=== PATIENT | male | born 1985 | race Caucasian/White ===

== ENCOUNTER 2025-08-23 06:57 | Emergency (ER) | payer MEDICAID, SELFPAY ==
[2025-08-23 07:02] VITALS: BP 110/69; PULSE 54; PULSE 59; RESP 16; TEMP 36.4; O2SAT 100; O2SAT 99; BMI 24.0
--- NOTE | 2025-08-23 07:09 | EX.ED.GENINJ ---
HPI History of Present Illness Chief Complaint: Suicidal PFSH PFSH Allergy/AdvReac Type Severity Reaction Status Date / Time Penicillins Allergy Severe Anaphylaxis Verified 08/23/25 07:06 bupropion (From Wellbutrin) Allergy Mild Other Verified 08/23/25 07:06 divalproex sodium (From Allergy Mild Other Verified 08/23/25 07:06 Depakote) risperidone Allergy Mild Other Verified 08/23/25 07:06 Family History no significant family his Surgical History (Updated 08/23/25 @ 07:03 by Alton Franco) Hx of heart surgery Social History Smoking Status: Current some day smoker tobacco type: cigarettes EXAM Physical Exam Const Vital Signs: 08/23/25 07:02 08/23/25 07:02 08/23/25 07:02 Temperature 97.6 F L Temperature Source Oral Pulse Rate 54 L 59 L Respiratory Rate 16 16 Respiratory Effort Normal Respiratory Pattern Normal Blood Pressure 110/69 110/69 Blood Pressure Mean 82 82 Pulse Ox 99 100 Oxygen Delivery Method Room Air Room Air MDM MDM MDM Narrative Medical decision making narrative: HISTORY OF PRESENT ILLNESS: Chief complaint: Suicidal ideation, foot pain 40-year-old male presents concern for suicide ideation as well as concern for pain in his feet. He states he thinks his feet hurt because he has been out. He further states he has suicidal thoughts and his plan be to go outside in the cold and walk into traffic. He denies any trauma to his feet. He notes using ice last 2 days. States history of bipolar disorder is currently untreated. Denies any physical complaints of chest pain, headache, neck pain, back pain, abdominal pain, vomiting or fever. REVIEW OF SYSTEMS: Pertinent positives: Suicidal ideation, foot pain Pertinent negatives: As per HPI PHYSICAL EXAM: Nursing triage notes reviewed, Vital signs reviewed Constitutional: please see mdm HENT: MMM Eyes: Pupils equal round and reactive to light, Extraocular muscles intact Neck: No stridor, no JVD, full neck ROM Lungs: Clear to auscultation, No wheezing or rales. No increased work of breathing, no conversational dyspnea, no accessory muscle use, no nasal flaring. No respiratory distress noted Heart: Regular rate and rhythm, No murmurs, No rubs and No gallops, 2+ distal pulses (radial, femoral, posterior tibial) in all extremities Abdomen: Soft, there is no tenderness, rigidity, rebound or guarding, no obvious peritoneal signs, no palpable pulsatile abdominal masses, no auscultated abdominal bruit : No CVAT Extremities: No edema Neuro: Intact sensation L1-S1 dermatomal distributions. Intact 5/5 strength in hip flexion (T12-L3). Knee extension (L2-L4). Ankle dorsiflexion (L4-L5). Ankle plantar flexion (S1). Great toe extension (L5). 2+ patellar and Achilles DTRs. Skin: No rash or lesions noted Psych: Goal-directed thought process, normal affect, does not appear to be responding to internal stimuli. MEDICAL DECISION MAKING: Chief Complaint: please see HPI External records reviewed: no records Factors affecting care: none Social determinants of health: Homeless History obtained from others: none Consults: behavioral social work MDM Narrative: Patient was hemodynamically stable, afebrile and nontoxic-appearing. Initial exam unremarkable. Initiated mental health/behavioral health clearance process. Consulted case management ALL IMAGES (IF OBTAINED) HAVE BEEN PERSONALLY REVIEWED AND INTERPRETED BY MYSELF. [] The patient and/or family, caregivers express understanding. The patient and/or family, caregivers agrees with the plan. Shared decision making: I will have a discussion with the patient and or visitors regarding risk/benefits of further testing or admission. They will be made aware of of the risk/benefits inherent in this decision they will be given the opportunity to voice understanding. Total critical care time today provided was at least 0 [] minutes. This excludes separately billable procedures. Critical care time (if documented) is secondary to the patient having high probability of clinically significant/life threatening deterioration in the patient's condition which required my urgent intervention. Impression: 1. Suicidal Ideation 2. Foot pain Dispo: [] This note was generated with [employer] dictation software. It may contain incorrect words, spelling, and punctuation that were not noted in review of the chart prior to signing. Discharge Plan Triage Chief Complaint: Suicidal Other Complaint: Other, Pain/Inj ED Provider: Zane Chaves Dx/Rx/DC Orders Primary Care Provider: Care Physician,No Primary Referrals: Care Physician,No Primary [Primary Care Provider, Medical] Print Language: Armenian
--- OUTSIDE RECORDS SUMMARY | 2025-08-23 07:36 | XMS RPT_ITS | CCD ---
Author Organization [facility] Care Team Providers Care Weight Loss Counselor Name Role Phone Unavailable Primary Care Provider UnavailBANDAR Marr Admitting Unavailable MITCH NUÑEZ Attending Unavailable [facility] Primary Care Physician Elke Friend Unavailable Unavailable Unavailable Primary Care Provider UnavailCALISTA Naidu Attending Unavailable JOSELINE HALL Consulting Unavailable KALEY PIERRE M.D. Consulting Unavailab NICOLASA Galeano Consulting Unavailable PHYSICIAN, NONE Primary Care Physician Unavailab Oliver Leyva Attending Unavailable Zach AGUILLON, Samira Mccrary Primary Care Provider SAMIRA SERRANO Primary Care Unavailable RACHAEL HOUSER Attending Unavailable PALMA AGUILLON, CECIL Hall Attending [facility] Unavail able PHYSICIAN, NONE Primary Care Unavailable PALMA AGUILLON, DR DAVIS Attending Unavailmilly e PHYSICIAN, NONE Primary Care Unavailable GALLO TORRE MD Attending Unavailable PHYSICIAN, NONE Primary Care Unavailable ADAM GUALLPA DO Attending Unavailable Pcp RESEARCH PHYSIOLOGIST, No Primary Care Provider UnavailASAF Spaulding Primary Care Unavailable ELBA FLOOD DO Attending Unavailable PHYSICIAN, NONE Primary Care Unavailable Allergies Allergy Classification Reported Allergen(s) Allergy Type Date of Onset Reaction(s) Facility (11 sources) Penicillins; Translations: [PENICILLINS] Propensity to adverse reactions to drug 0 Unknown [facility] (13 sources) Valproate; Translations: [DIVALPROEX] Drug Allergy 0 Unknown [facility] (8 sources) Penicillins Propensity to adverse reactions to drug 0 Unknown [facility] (6 sources) Valproate; Translations: [divalproex sodium] Drug Allergy muscle stiffness [facility] (6 sources) dimethicone / Zinc Oxide; Translations: [emollients, topical] Drug Allergy [facility] (2 sources) buPROPion; Translations: [bupropion] Drug Allergy blind [facility] (2 sources) Latex Allergy to substance rash [facility] Medications Current Medications Medication Drug Class(es) Dates Sig (Normalized) Sig (Original) ARIPiprazole 10 mg oral tablet (7 sources) Atypical Antipsychotic Start: 12-05-2023 ARIPiprazole 10 mg oral tablet Dose : 10 mg = 1 tab(s), Oral Start Date: 12/05/23 Status: Ordered Start: 06-05-2020 take 1 tablet by adithya th once daily ARIPiprazole (ABILIFY) 10 mg tablet Take 1 tablet by mouth once daily. 30 tablet 0 06/05/2020 Active Comment on above: Take 1 tablet by adithya th once daily. atomoxetine 40 mg oral capsule (5 sources) Norepinephrine Reuptake Inhibitor Start: 10-05-19 take 1 capsule by mouth twice daily atomoxetine (STRATTERA) 40 mg capsule Take 40 mg by mouth twice daily. 0 10/05/2022 Active Comment on above: Take 40 mg by mouth twice daily. busPIRone hydrochloride 10 mg oral tablet (6 sources) Start: 12-05-19 busPIRone 10 mg oral tablet Dose : 10 mg = 1 tab(s), Oral, BID Start Date: 12/05/23 Status: Ordered Start: 10-05-2022 take 1 tablet by adithya th twice daily busPIRone (BUSPAR) 5 mg tablet Take 5 mg by mouth twice daily. 0 10/05/2022 Active Comment on above: Take 5 mg by mouth t wice daily. cephalexin 500 mg oral tablet (1 source) Cephalosporin Antibacterial Start: 3 End: 3 cephalexin 500 mg oral tablet Dose : 500 mg = 1 tab(s), Oral, BID, X 7 day(s), # 14 tab(s), 0 Refill(s), 05/18/23 7:01:00 AM EDT, 70.5 Start Date: 05/11/23 Stop Date: 05/18/23 Status: Ordered doxycycline hyclate 100 mg oral capsule (2 sources) Tetracycline-class Drug Start: 3 End: 3 take 1 capsule by mouth twice daily doxycycline hyclate (VIBRAMYCIN) 100 mg capsule Indications: STI (sexually transmitted infection) Take 1 capsule by mouth twice daily for 14 days. 28 capsule 0 11/17/2022 12/01/2022 Active Comment on above: Take 1 capsule by [facility] twice daily for 14 days. 24 hr guanFACINE 1 mg extended release oral tablet (1 source) Central alpha-2 Adrenergic Agonist Start: 4 guanFACINE 1 mg oral tablet, extended release Dose : 1 mg = 1 tab(s), Oral, qAM Start Date: 12/05/23 Status: Ordered hydrOXYzine pamoate 50 mg oral capsule (1 source) Antihistamine Start: 4 hydrOXYzine pamoate 50 mg oral capsule Dose : 50 mg = 1 cap(s), Oral, BID Start Date: 12/05/23 Status: Ordered lamoTRIgine 25 mg oral tablet (5 sources) Mood Stabilizer, Anti-epileptic Agent Start: 3 take 3 tablets by mouth once daily at bedtime lamoTRIgine (LAMICTAL) 25 mg tablet Take 75 mg by mouth daily at bedtime. 0 10/05/2022 Active Comment on above: Take 75 mg by mouth daily at bedtime. Completed/Discontinued Medications Medication Drug Class(es) Dates Sig (Normalized) Sig (Original) cefTRIAXone 250 mg injection (2 sources) Cephalosporin Antibacterial Start: 11-17-2022 End: 11-17-2022 cefTRIAXone 500 mg intramuscular injection (ROCEPHIN) Start: 11-17-2022 End: 11-17-2022 cefTRIAXone 500 mg intramusc ular injection (ROCEPHIN) valACYclovir 1000 mg oral tablet (1 source) Herpesvirus Nucleoside Analog DNA Polymerase Inhibitor, Herpes Simplex Virus Nucleoside Analog DNA Polymerase Inhibitor, Herpes Zoster Virus Nucleoside Analog DNA Polymerase Inhibitor Start: 05-11-2023 End: 05-21-2023 Valtrex 1 g oral tablet Dose : 1 gram(s) = 1 tab(s), Oral, BID, X 10 day(s), # 20 tab(s), 0 Refill(s), 05/21/23 7:01:00 AM EDT, 70.5 Start Date: 05/11/23 Stop Date: 05/21/23 Status: Ordered 24 hr venlafaxine 150 mg extended release oral capsule (6 sources) Serotonin and Norepinephrine Reuptake Inhibitor Start: 06-05-2020 take 1 capsule by mouth once daily venlafaxine ER (EFFEXOR XR) 150 mg 24 hr capsule Take 1 capsule by mouth once daily. 30 capsule 0 06/05/2020 Active Comment on above: Take 1 capsule by [facility] once daily. Problems Active Problems Problem Classification Problem Date Documented Date Episodic/Chronic Mood disorders (15 sources) Bipolar disorder; Translations: [Bipolar disorder, unspecified] Onset: 05-31-2020 06-04-2020 Chronic Schizophrenia and other psychotic disorders (1 source) Delusional disorders; Translations: [Paranoia (HCC)] Onset: 08-29-2023 Chronic Screening and history of mental health and substance abuse codes (1 source) Personal history of other mental and behavioral disorders; Translations: [Personal history of other mental and behavioral disorders] Onset: 09-22-2024 Episodic Sexually transmitted infections (not HIV or hepatitis) (1 source) Sexually transmitted infectious disease; Translations: [Unspecified sexually transmitted disease] Episodic Substance-related disorders (1 source) Other stimulant dependence, uncomplicated; Translations: [Other stimulant dependence, uncomplicated ([facility]-HCC)] Onset: 09-22-2024 Chronic Suicide and intentional self-inflicted injury (2 sources) Suicidal thoughts; Translations: [Suicidal ideations] Onset: 11-03-2023 Episodic Unclassified (2 sources) Suicidal; Translations: [Suicidal] Onset: 09-22-2024 Past or Other Problems Problem Classification Problem Date Documented Da te Episodic/Chronic Unclassified (1 source) FEVER/CHILLS/VOM ITTING Onset: 09-03-2022 Results Test Name Value Interpretation Reference Range Facility .Auto Diffon 01-17-2025 Basophil, Absolute 0.1 10 3/mcL Normal 0.0-0.3 [facility] Comment on above: Performed By: #### M DW, ANEU, CMP, ADIFF, DRUGS, CK, GFR, CBC #### [address] [address] Basophils/100 WBC (Bld) 1.5 % Normal 0.0-2.5 [facility] Comment on above: Performed By: #### M DW, ANEU, CMP, ADIFF, DRUGS, CK, GFR, CBC #### [address] [address] Eosinophil, Absolute 0.2 10 3/mcL Normal 0.0-0.7 [facility] Comment on above: Performed By: #### M DW, ANEU, CMP, ADIFF, DRUGS, CK, GFR, CBC #### [address] [address] Eosinophils/100 WBC (Bld) 3.2 % Normal 0.0-6.0 [facility] Comment on above: Performed By: #### M DW, ANEU, CMP, ADIFF, DRUGS, CK, GFR, CBC #### [address] [address] Lymphocyte, Absolute 1.6 10 3/mcL Normal 0.9-4.3 [facility] Comment on above: Performed By: #### M DW, ANEU, CMP, ADIFF, DRUGS, CK, GFR, CBC #### [address] [address] Lymphocytes/100 WBC (Bld) 33.5 % Normal 20.0-40.0 [facility] Comment on above: Performed By: #### M DW, ANEU, CMP, ADIFF, DRUGS, CK, GFR, CBC #### [address] [address] Monocyte, Absolute 0.4 10 3/mcL Normal 0.1-1.4 [facility] Comment on above: Performed By: #### M DW, ANEU, CMP, ADIFF, DRUGS, CK, GFR, CBC #### [address] [address] Monocytes/100 WBC (Bld) 9.2 % Normal 2.0-13.0 [facility] Comment on above: Performed By: #### M DW, ANEU, CMP, ADIFF, DRUGS, CK, GFR, CBC #### [address] [address] Neutrophils/100 WBC (Bld) 52.6 % Normal 50.0-75.0 [facility] Comment on above: Performed By: #### M DW, ANEU, CMP, ADIFF, DRUGS, CK, GFR, CBC #### [address] [address] .GFRon 05-10-2025 Estimated Glomerular Filtration Rate 96 ml/min/1.73sqm Normal [facility] Comment on above: Result Comment: Stages of Chronic Kidney Disease (CKD) Stage Description eGFR(ml/min/1.73 sq.m.) CKD 1 Normal kidney function or >=90 normal kindney function with possible kidney damage (ex. Proteinuria) CKD 2 Kidney damage with mild loss 60-89 of kidney function CKD 3a Mild to moderate loss of kidney 45-59 function CKD 3b Moderate to severe loss of 30-44 of kindey function CKD 4 Severe loss of kidney function 15-29 CKD 5 Kidney failure <15 Note: (go live 2024) the eGFR calculation was updated to the 2020 CKD-EPI creatinine equation without a race factor to calculate the eGFR results. Performed By: #### M DW, ANEU, CMP, ADIFF, DRUGS, CK, GFR, CBC #### [place] [address] .MDWon 01-17-2025 Monocyte Distribution Width 16.95 Normal 0.00-20.00 [facility] Comment on above: Result Comment: For ED adult patients suspected of sepsis, MDW<=20.0 does not rule out sepsis or risk of sepsis Performed By: #### M DW, ANEU, CMP, ADIFF, DRUGS, CK, GFR, CBC #### [place] [address] .NEUABSon 01-17-2025 Neutrophil, Absolute 2.6 10 3/mcL Normal 2.3-8.1 [facility] Comment on above: Performed By: #### M DW, ANEU, CMP, ADIFF, DRUGS, CK, GFR, CBC #### [place] [address] CBCon 01-17-2025 Erythrocyte distribution width (RBC) [Ratio] 14.6 % Normal 11.5-15.5 [facility] Comment on above: Performed By: #### M DW, ANEU, CMP, ADIFF, DRUGS, CK, GFR, CBC #### [place] [address] Hematocrit (Bld) [Volume fraction] 40.8 % Normal 40.0-52.0 [facility] Comment on above: Performed By: #### M DW, ANEU, CMP, ADIFF, DRUGS, CK, GFR, CBC #### [place] [address] Hgb 13.5 G/dL Normal 13.0-17.5 [facility] Comment on above: Performed By: #### M DW, ANEU, CMP, ADIFF, DRUGS, CK, GFR, CBC #### [place] [address] MCH (RBC) [Entitic mass] 30.1 pg Normal 27.0-33.0 [facility] Comment on above: Performed By: #### M DW, ANEU, CMP, ADIFF, DRUGS, CK, GFR, CBC #### [place] [address] MCHC 33.0 G/dL Normal 32.0-36.0 [facility] Comment on above: Performed By: #### M DW, ANEU, CMP, ADIFF, DRUGS, CK, GFR, CBC #### [place] [address] MCV (RBC) [Entitic vol] 91.2 fL Normal 81.0-100.0 [facility] Comment on above: Performed By: #### M DW, ANEU, CMP, ADIFF, DRUGS, CK, GFR, CBC #### [place] [address] Platelet 245 10 3/mcL Normal 150-450 [facility] Comment on above: Performed By: #### M DW, ANEU, CMP, ADIFF, DRUGS, CK, GFR, CBC #### [place] [address] Platelet mean volume (Bld) [Entitic vol] 8.4 fL Normal 6.4-10.5 [facility] Comment on above: Performed By: #### M DW, ANEU, CMP, ADIFF, DRUGS, CK, GFR, CBC #### [place] [address] RBC 4.47 10 6/mcL Low 4.50-6.00 [facility] Comment on above: Performed By: #### M DW, ANEU, CMP, ADIFF, DRUGS, CK, GFR, CBC #### [place] [id number] WBC 4.9 10 3/mcL Normal 4.5-10.8 [facility] Comment on above: Performed By: #### M DW, ANEU, CMP, ADIFF, DRUGS, CK, GFR, CBC #### [place] [id number] CKon 01-17-2025 CK [Catalytic activity/Vol] 76 U/L Normal 7-185 [facility] Comment on above: Performed By: #### M DW, ANEU, CMP, ADIFF, DRUGS, CK, GFR, CBC #### [address] 01-17-2025 Albumin Level 3.9 G/dL Normal 3.2-4.8 [facility] Comment on above: Performed By: #### M DW, ANEU, CMP, ADIFF, DRUGS, CK, GFR, CBC #### [place] [address] Albumin/Globulin [Mass ratio] 1.6 {ratio} Normal 0.9-1.6 [facility] Comment on above: Performed By: #### M DW, ANEU, CMP, ADIFF, DRUGS, CK, GFR, CBC #### [place] [id number] ALP [Catalytic activity/Vol] 59 U/L Normal 38-126 [facility] Comment on above: Performed By: #### M DW, ANEU, CMP, ADIFF, DRUGS, CK, GFR, CBC #### [place] [address] ALT [Catalytic activity/Vol] 13 U/L Normal 12-55 [facility] Comment on above: Performed By: #### M DW, ANEU, CMP, ADIFF, DRUGS, CK, GFR, CBC #### [place] [id number] AST [Catalytic activity/Vol] 16 U/L Normal 8-34 [facility] Comment on above: Performed By: #### M DW, ANEU, CMP, ADIFF, DRUGS, CK, GFR, CBC #### [place] [id number] Bili Total 0.30 mg/dL Normal 0.20-1.20 [facility] Comment on above: Result Comment: Use of this assay is not recommended for patients undergoing treatment with eltrombopag due to the potential for falsely elevated results. Performed By: #### M DW, ANEU, CMP, ADIFF, DRUGS, CK, GFR, CBC #### [place] [address] BUN/Creatinine Ratio 7.9 ratio Low 10.0-22.0 [facility] Comment on above: Performed By: #### M DW, ANEU, CMP, ADIFF, DRUGS, CK, GFR, CBC #### [place] [address] Calcium [Mass/Vol] 9.6 mg/dL Normal 8.7-10.4 [facility] Comment on above: Performed By: #### M DW, ANEU, CMP, ADIFF, DRUGS, CK, GFR, CBC #### [place] [id number] Chloride [Moles/Vol] 108 mmol/L Normal 98-110 [facility] Comment on above: Performed By: #### M DW, ANEU, CMP, ADIFF, DRUGS, CK, GFR, CBC #### [place] [id number] CO2 [Moles/Vol] 32 mmol/L Normal 22-32 [facility] Comment on above: Performed By: #### M DW, ANEU, CMP, ADIFF, DRUGS, CK, GFR, CBC #### [place] [address] Creatinine [Mass/Vol] 1.01 mg/dL Normal 0.60-1.40 [facility] Comment on above: Result Comment: Test ing performed on tuQuejaSuma analyzer using enzymatic creatinine methodology. Performed By: #### M DW, ANEU, CMP, ADIFF, DRUGS, CK, GFR, CBC #### [place] [address] Electrolyte Balance 1.0 mEq/L Low 4.0-15.0 [facility] Comment on above: Performed By: #### M DW, ANEU, CMP, ADIFF, DRUGS, CK, GFR, CBC #### [address] [address] Globulin 2.4 G/dL Low 2.5-4.2 [facility] Comment on above: Performed By: #### M DW, ANEU, CMP, ADIFF, DRUGS, CK, GFR, CBC #### [place] [id number] Glucose [Mass/Vol] 99 mg/dL Normal 70-110 [facility] Comment on above: Performed By: #### M DW, ANEU, CMP, ADIFF, DRUGS, CK, GFR, CBC #### [place] [id number] Potassium [Moles/Vol] 4.6 mmol/L Normal 3.5-5.0 [facility] Comment on above: Performed By: #### M DW, ANEU, CMP, ADIFF, DRUGS, CK, GFR, CBC #### [place] [id number] Sodium [Moles/Vol] 141 mmol/L Normal 136-145 [facility] Comment on above: Performed By: #### M DW, ANEU, CMP, ADIFF, DRUGS, CK, GFR, CBC #### [place] [id number] Total Protein 6.3 G/dL Normal 5.7-8.2 [facility] Comment on above: Performed By: #### M DW, ANEU, CMP, ADIFF, DRUGS, CK, GFR, CBC #### [place] [id number] Urea nitrogen [Mass/Vol] 8.0 mg/dL Normal 8.0-22.0 [facility] Comment on above: Performed By: #### M DW, ANEU, CMP, ADIFF, DRUGS, CK, GFR, CBC #### [place] [id number] CVFLURVon 01-17-2025 FLU A PCR Negative Normal Negative [facility] Comment on above: Result Comment: [place] [id number] Performed By: #### C VFLURV #### [place] [address] FLU B PCR Negative Normal Negative [facility] Comment on above: Result Comment: [place] [id number] Performed By: #### C VFLURV #### [facility] [address] [place] [address] RSV PCR Negative Normal Negative [facility] Comment on above: Result Comment: [place] [id number] Performed By: #### C VFLURV #### [place] [address] SARS-CoV-2 (COVID-19) RNA LAN+probe Ql (Unsp spec) Negative Normal Negative [facility] Comment on above: Result Comment: [place] s [id number] Results from the Xpert Xpress SARS-CoV-2/Flu/RSV or Xpert Xpress SARS-CoV-2 only test should be correlated with the clinical history, epidemiological data, and other data available to the clinician evaluating the patient. Performance of the Xpert Xpress SARS-CoV-2/Flu/RSV or Xpert Xpress SARS-CoV-2 only test has only been established in nasopharyngeal swab specimens. Erroneous test results might occur from improper specimen collection; failure to follow the recommended sample collection, handling, and storage procedures; technical error; or sample mix-up.False negative results may occur if virus is present at levels below the analytical limit of detection. Viral nucleic acid may persist in vivo, independent of virus viability. Detection of analyte target(s) does not imply that the corresponding virus(es) are infectious or are the causative agents for clinical symptoms.Recent patient exposure to FluMist or other live attenuated influenza vaccines may cause inaccurate positive results. FDA Approved. Performed By: #### C VFLURV #### [place] [address] DRUGSon 01-17-2025 Acetaminophen [Mass/Vol] ug/mL Low 10.0-20.0 [facility] Comment on above: Performed By: #### M DW, ANEU, CMP, ADIFF, DRUGS, CK, GFR, CBC #### [place] [address] Ethanol Level <10.0 Normal [facility] Comment on above: Performed By: #### M DW, ANEU, CMP, ADIFF, DRUGS, CK, GFR, CBC #### [place] [id number] Salicylate Lvl (ds) <3.0 Low 10.0-25.0 [facility] Comment on above: Performed By: #### M DW, ANEU, CMP, ADIFF, DRUGS, CK, GFR, CBC #### [place] [id number] Serum Drugs screened: See Below [facility] Comment on above: Result Comment: This drug screen is a presumptive screening only. No confirmation will be performed unless requested. Drugs included in the serum drug screen are: Threshold Ethanol 10.0 mg/dL Salicylate 2.0 mg/dl Acetaminophen 2.0 mcg/mL Testing has been performed FOR MEDICAL PURPOSES ONLY. Performed By: #### M DW, ANEU, CMP, ADIFF, DRUGS, CK, GFR, CBC #### [place] [address] DRUGUon 01-17-2025 Cannabinoid (u) Positive Abnormal Negative [facility] Comment on above: Performed By: #### Zamzam SHEIKHU #### [place] [id number] U pH Drug Scrn 7.5 Normal 5.0-8.0 [facility] Comment on above: Performed By: #### Zamzam SHEIKHU #### [place] [id number] Amphetamine (u) Negative Normal Negative [facility] Comment on above: Performed By: #### Zamzam RUGU #### [place] [id number] Barbiturate (u) Negative Normal Negative [facility] Comment on above: Performed By: #### Zamzam RUGU #### [place] [id number] Benzodiazepine (u) Negative Normal Negative [facility] Comment on above: Performed By: #### Zamzam RUGU #### [place] [id number] Cocaine Ql (U) Negative Normal Negative [facility] Comment on above: Performed By: #### D RUGU #### [address] [address] Fentanyl (u) Negative Normal Negative [facility] Comment on above: Result Comment: Test ing has been performed FOR MEDICAL PURPOSES ONLY. Performed By: #### D RUGU #### [address] [address] Methadone Ql (U) Negative Normal Negative [facility] Comment on above: Performed By: #### D RUGU #### [address] [address] Opiate (u) Negative Normal Negative [facility] Comment on above: Performed By: #### D RUGU #### [address] [address] Oxycodone (u) Negative Normal Negative [facility] Comment on above: Result Comment: Test ing has been performed FOR MEDICAL PURPOSES ONLY. Performed By: #### Zamzam RUGU #### [address] [address] PCP (u) Negative Normal [facility]IN Comment on above: Performed By: #### D RUGU #### [place] [id number] Propoxyphene (u) Negative Normal [facility]IN Comment on above: Performed By: #### D RUGU #### [address] [address] Urine Drugs screened: See Below [facility] Comment on above: Result Comment: This drug screen is a presumptive screening only. No confirmation will be performed unless requested. Drugs screened include: Threshold Amphetamines/Methamphetamines 1,000 ng/mL Barbiturates 200 ng/mL Benzodiazepine metabolites 200 ng/mL Cannabinoids (THC metabolites) 50 ng/mL Benzoylecognine (Cocaine metab) 300 ng/mL Opiates 300 ng/mL Phencyclidine (PCP) 25 ng/mL Methadone 300 ng/mL Propoxyphene 300 ng/mL Fentanyl 1.0 ng/mL Oxycodone 100 ng/mL Testing has been performed FOR MEDICAL PURPOSES ONLY. Performed By: #### Zamzam RUGU #### [place] [id number] [place] [address] LABORATORYOrdered By: Garrett Vidal on 01-17-2025 Amphetamines Screen Ql (U) Negative *NA* (01/17/25 12:32 PM) Invalid Interpretation Code Negative AH ADM SS Barbiturates Screen Ql (U) Negative *NA* (01/17/25 12:32 PM) Invalid Interpretation Code Negative AH ADM SS Benzodiazepines Ql (U) Negative *NA* (01/17/25 12:32 PM) Invalid Interpretation Code Negative AH ADM SS Benzoylecgonine Screen Ql (U) Negative *NA* (01/17/25 12:32 PM) Invalid Interpretation Code Negative AH ADM SS fentaNYL Screen Ql (U) Negative 2 *NA* (01/17/25 12:32 PM) Invalid Interpretation Code Negative AH ADM SS Comment on above: Interpretive Data: T esting has been performed FOR MEDICAL PURPOSES ONLY. Methadone Screen Ql (U) Negative *NA* (01/17/25 12:32 PM) Invalid Interpretation Code Negative AH ADM SS Opiates Screen Ql (U) Negative *NA* (01/17/25 12:32 PM) Invalid Interpretation Code Negative AH ADM SS oxyCODONE Ql (U) Negative 3 *NA* (01/17/25 12:32 PM) Invalid Interpretation Code Negative AH ADM SS Comment on above: Interpretive Data: T esting has been performed FOR MEDICAL PURPOSES ONLY. Phencyclidine Ql (U) Negative *NA* (01/17/25 12:32 PM) Invalid Interpretation Code Negative AH ADM SS Propoxyphene Screen Ql (U) Negative *NA* (01/17/25 12:32 PM) Invalid Interpretation Code Negative AH ADM SS Urine Drugs screened: See Below 8 (01/17/25 12:32 PM) Normal AH Chemistry S Comment on above: Interpretive Data: T his drug screen is a presumptive screening only. No confirmation will be performed unless requested. Drugs screened include: Threshold Amphetamines/Methamphetamines 1,000 ng/mL Barbiturates 200 ng/mL Benzodiazepine metabolites 200 ng/mL Cannabinoids (THC metabolites) 50 ng/mL Benzoylecognine (Cocaine metab) 300 ng/mL Opiates 300 ng/mL Phencyclidine (PCP) 25 ng/mL Methadone 300 ng/mL Propoxyphene 300 ng/mL Fentanyl 1.0 ng/mL Oxycodone 100 ng/mL Testing has been performed FOR MEDICAL PURPOSES ONLY. LABORATORYOrdered By: Irasema sanchez on 01-17-2025 Cannabinoids Screen Ql (U) Positive *ABN* (01/17/25 12:32 PM) Invalid Interpretation Code Negative AH ADM SS pH (U) 7.5 [pH] Normal 5.0 - 8.0 Chemistry S Acetaminophen [Mass/Vol] mcg/mL Low 10.0 - 20.0 mcg/mL AH ADM SS Ethanol [Mass/Vol] mg/dL Invalid Interpretation Code AH ADM SS Salicylates [Mass/Vol] mg/dL Low 10.0 - 25.0 mg/dL ADM SS Serum Drugs screened: See Below 7 (01/17/25 9:27 AM) Normal Chemistry S Comment on above: Interpretive Data: T his drug screen is a presumptive screening only. No confirmation will be performed unless requested. Drugs included in the serum drug screen are: Threshold Ethanol 10.0 mg/dL Salicylate 2.0 mg/dl Acetaminophen 2.0 mcg/mL Testing has been performed FOR MEDICAL PURPOSES ONLY. LABORATORYOrdered By: SYSTEM SYSTEM on 01-17-2025 Albumin BCP dye [Mass/Vol] 3.9 G/dL Normal 3.2 - 4.8 G/dL ADM SS Albumin/Globulin [Mass ratio] 1.6 {ratio} Normal 0.9 - 1.6 ratio ADM SS ALP [Catalytic activity/Vol] 59 U/L Normal 38 - 126 U/L ADM SS ALT No additional P-5'-P [Catalytic activity/Vol] 13 U/L Normal 12 - 55 U/L AH ADM SS AST [Catalytic activity/Vol] 16 U/L Normal 8 - 34 U/L ADM SS Basophils (Bld) [#/Vol] 0.1 103/mcL Normal 0.0 - 0.3 10^3/mcL Workflow SS Basophils/100 WBC (Bld) 1.5 % Normal 0.0 - 2.5 % Workflow SS Bilirubin [Mass/Vol] 0.30 mg/dL Normal 0.20 - 1.20 mg/dL ADM SS Comment on above: Interpretive Data: U se of this assay is not recommended for patients undergoing treatment with eltrombopag due to the potential for falsely elevated results. Calcium [Mass/Vol] 9.6 mg/dL Normal 8.7 - 10. 4 mg/dL ADM SS Chloride [Moles/Vol] 108 mmol/L Normal 98 - 11 0 mEq/L AH ADM SS CK [Catalytic activity/Vol] 76 U/L Normal 7 - 185 U/L AH ADM SS CO2 [Moles/Vol] 32 mmol/L Normal 22 - 32 mEq/L AH ADM SS Creatinine [Mass/Vol] 1.01 mg/dL Normal 0.60 - 1.40 mg/dL AH ADM SS Comment on above: Interpretive Data: T esting performed on tu[employer]ja[employer]uma analyzer using enzymatic creatinine methodology. Electrolyte Balance 1.0 mEq/L Low 4.0 - 15 .0 mEq/L ADM SS Eosinophils (Bld) [#/Vol] 0.2 103/mcL Normal 0.0 - 0.7 10^3/mcL Workflow SS Eosinophils/100 WBC (Bld) 3.2 % Normal 0.0 - 6.0 % Workflow SS Erythrocyte distribution width (RBC) [Ratio] 14.6 % Normal 11.5 - 15.5 % Workflow SS Estimated Glomerular Filtration Rate 96 ml/min/1.73sqm Invalid Interpretation Code ADM SS Comment on above: Interpretive Data: Stages of Chronic Kidney Disease (CKD) Stage Description eGFR(ml/min/1.73 sq.m.) CKD 1 Normal kidney function or >=90 normal kindney function with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 [id number] Performed By: #### C VFLURV #### [address] [address] RSV PCR Negative Normal Negative [facility] ([place]) Comment on above: Result Comment: [place] [id number] Performed By: #### C VFLURV #### [place] [address] SARS-CoV-2 (COVID-19) RNA LAN+probe Ql (Unsp spec) Negative Normal Negative [facility] ([place]) Comment on above: Result Comment: Note s [id number] This test has been authorized by FDA under an EUA for use by authorized laboratories and has not been FDA cleared or approved. Results from the Xpert Xpress SARS-CoV-2/Flu/RSV or Xpert Xpress SARS-CoV-2 only test should be correlated with the clinical history, epidemiological data, and other data available to the clinician evaluating the patient. Performance of the Xpert Xpress SARS-CoV-2/Flu/RSV or Xpert Xpress SARS-CoV-2 only test has only been established in nasopharyngeal swab specimens. Erroneous test results might occur from improper specimen collection; failure to follow the recommended sample collection, handling, and storage procedures; technical error; or sample mix-up.False negative results may occur if virus is present at levels below the analytical limit of detection. Viral nucleic acid may persist in vivo, independent of virus viability. Detection of analyte target(s) does not imply that the corresponding virus(es) are infectious or are the causative agents for clinical symptoms.Recent patient exposure to FluMist or other live attenuated influenza vaccines may cause inaccurate positive results. Performed By: #### C VFLURV #### [place] [address] DRUGSon 12-04-2023 Acetaminophen [Mass/Vol] ug/mL Low 10.0-20.0 [facility] ([place] Comment on above: Performed By: #### D JERRI SPAULDING, CMP, CBC, ADIFF, GFR, MDW #### [place] [address] Ethanol Level <10.0 Normal [facility] ([place]) Comment on above: Performed By: #### D JERRI SPAULDING, CMP, CBC, ADIFF, GFR, MDW #### [place] [address] Salicylate Lvl (ds) <3.0 Low 10.0-25.0 [facility] ([place] Comment on above: Performed By: #### D JERRI SPAULDING, CMP, CBC, ADIFF, GFR, W #### [place] [address] Serum Drugs screened: See Below Normal [facility] ([place]) Comment on above: Result Comment: This drug screen is a presumptive screening only. No confirmation will be performed unless requested. Drugs included in the ER serum drug screen are: Threshold Ethanol 10.0 mg/dL Salicylate 2.0 mg/dl Acetaminophen 2.0 mcg/mL Testing has been performed FOR MEDICAL PURPOSES ONLY. Performed By: #### D EJRRI SPAULDING, CMP, CBC, ADIFF, GFR, MDW #### [place] [address] DRUGUon 12-04-2023 Amphetamine (u) Positive Abnormal Negative [facility] ([place]) Comment on above: Performed By: #### C VFLURV #### [place] [address] Barbiturate (u) Negative Normal Negative [facility] ([place]) Comment on above: Performed By: #### C VFLURV #### [place] [address] Benzodiazepine (u) Negative Normal Negative [facility] ([place]) Comment on above: Performed By: #### C VFLURV #### [place] [id number] Cannabinoid (u) Positive Abnormal Negative [facility] ([place]) Comment on above: Performed By: #### C VFLURV #### [address] [address] Cocaine Ql (U) Negative Normal Negative [facility] ([place]) Comment on above: Performed By: #### C VFLURV #### [place] [id number] Fentanyl (u) Negative Normal Negative [facility] ([place]) Comment on above: Result Comment: Test ing has been performed FOR MEDICAL PURPOSES ONLY. Performed By: #### C VFLURV #### [place] [id number] Methadone Ql (U) Negative Normal Negative [facility] ([place]) Comment on above: Performed By: #### C VFLURV #### [place] [id number] Opiate (u) Negative Normal Negative [facility] ([place] Comment on above: Performed By: #### C VFLURV #### [place] [address] Oxycodone (u) Negative Normal Negative [facility] ([place] Comment on above: Result Comment: Test ing has been performed FOR MEDICAL PURPOSES ONLY. Performed By: #### C VFLURV #### [place] [id number] PCP (u) Negative Normal Negative [facility] ([place]) Comment on above: Performed By: #### C VFLURV #### [place] [address] Propoxyphene (u) Negative Normal Negative [facility] ([place] Comment on above: Performed By: #### C VFLURV #### [place] [address] U pH Drug Scrn 6.0 Normal 5.0-8.0 [facility] ([place]) Comment on above: Performed By: #### C VFLURV #### [place] [address] Urine Drugs screened: See Below Normal [facility] ([place]) Comment on above: Result Comment: This drug screen is a presumptive screening only. No confirmation will be performed unless requested. Drugs screened include: Threshold Amphetamines/Methamphetamines 1,000 ng/mL Barbiturates 200 ng/mL Benzodiazepine metabolites 200 ng/mL Cannabinoids (THC metabolites) 50 ng/mL Benzoylecognine (Cocaine metab) 300 ng/mL Opiates 300 ng/mL Phencyclidine (PCP) 25 ng/mL Methadone 300 ng/mL Propoxyphene 300 ng/mL Fentanyl 1.0 ng/mL Oxycodone 100 ng/mL Testing has been performed FOR MEDICAL PURPOSES ONLY. Performed By: #### C VFLURV #### [place] [address] LABORATORYOrdered By: Jackson Hyatt on 12-04-2023 Amphetamines Screen Ql (U) Positive *ABN* (12/04/23 10:22 AM) Invalid Interpretation Code Negative AH ADM SS Barbiturates Screen Ql (U) Negative *NA* (12/04/23 10:22 AM) Invalid Interpretation Code Negative AH ADM SS Benzodiazepines Ql (U) Negative *NA* (12/04/23 10:22 AM) Invalid Interpretation Code Negative AH ADM SS Benzoylecgonine Screen Ql (U) Negative *NA* (12/04/23 10:22 AM) Invalid Interpretation Code Negative AH ADM SS Cannabinoids Screen Ql (U) Positive *ABN* (12/04/23 10:22 AM) Invalid Interpretation Code Negative AH ADM SS fentaNYL Screen Ql (U) Negative 2 *NA* (12/04/23 10:22 AM) Invalid Interpretation Code Negative AH ADM SS Comment on above: Interpretive Data: T esting has been performed FOR MEDICAL PURPOSES ONLY. Methadone Screen Ql (U) Negative *NA* (12/04/23 10:22 AM) Invalid Interpretation Code Negative AH ADM SS Opiates Screen Ql (U) Negative *NA* (12/04/23 10:22 AM) Invalid Interpretation Code Negative AH ADM SS oxyCODONE Ql (U) Negative 3 *NA* (12/04/23 10:22 AM) Invalid Interpretation Code Negative AH ADM SS Comment on above: Interpretive Data: T esting has been performed FOR MEDICAL PURPOSES ONLY. pH (U) 6.0 [pH] Normal 5.0 - 8.0 AH Chemistry S Phencyclidine Ql (U) Negative *NA* (12/04/23 10:22 AM) Invalid Interpretation Code Negative AH ADM SS Propoxyphene Screen Ql (U) Negative *NA* (12/04/23 10:22 AM) Invalid Interpretation Code Negative AH ADM SS Urine Drugs screened: See Below 7 (12/04/23 10:22 AM) Normal AH Chemistry S Comment on above: Interpretive Data: T his drug screen is a presumptive screening only. No confirmation will be performed unless requested. Drugs screened include: Threshold Amphetamines/Methamphetamines 1,000 ng/mL Barbiturates 200 ng/mL Benzodiazepine metabolites 200 ng/mL Cannabinoids (THC metabolites) 50 ng/mL Benzoylecognine (Cocaine metab) 300 ng/mL Opiates 300 ng/mL Phencyclidine (PCP) 25 ng/mL Methadone 300 ng/mL Propoxyphene 300 ng/mL Fentanyl 1.0 ng/mL Oxycodone 100 ng/mL Testing has been performed FOR MEDICAL PURPOSES ONLY. LABORATORYOrdered By: Janette Obregon on 12-04-2023 FLUAV RNA LAN+probe Ql (Resp) Negative 10 (12/04/23 8:32 AM) Normal Negative AH Auto Viro/Sero SS Comment on above: Result Comment: Note s FLUBV RNA LAN+probe Ql (Resp) Negative 11 (12/04/23 8:32 AM) Normal Negative AH Auto Viro/Sero SS Comment on above: Result Comment: Note s RSV PCR Negative 12 (12/04/23 8:32 AM) Normal Negative AH Auto Viro/Sero SS Comment on above: Result Comment: Note s SARS-CoV-2 (COVID-19) RNA LAN+probe Ql (Resp) Negative 8, 9 (12/04/23 8:32 AM) Normal Negative AH Auto Viro/Sero SS Comment on above: Result Comment: Note s Interpretive Data: T his test has been authorized by FDA under an EUA for use by authorized laboratories and has not been FDA cleared or approved. Results from the Xpert Xpress SARS-CoV-2/Flu/RSV or Xpert Xpress SARS-CoV-2 only test should be correlated with the clinical history, epidemiological data, and other data available to the clinician evaluating the patient. Performance of the Xpert Xpress SARS-CoV-2/Flu/RSV or Xpert Xpress SARS-CoV-2 only test has only been established in nasopharyngeal swab specimens. Erroneous test results might occur from improper specimen collection; failure to follow the recommended sample collection, handling, and storage procedures; technical error; or sample mix-up.False negative results may occur if virus is present at levels below the analytical limit of detection. Viral nucleic acid may persist in vivo, independent of virus viability. Detection of analyte target(s) does not imply that the corresponding virus(es) are infectious or are the causative agents for clinical symptoms.Recent patient exposure to FluMist or other live attenuated influenza vaccines may cause inaccurate positive results. LABORATORYOrdered By: Irasema sanchez on 12-04-2023 Acetaminophen [Mass/Vol] mcg/mL Low 10.0 - 20.0 mcg/mL ADM SS Ethanol [Mass/Vol] mg/dL Invalid Interpretation Code ADM SS Salicylates [Mass/Vol] mg/dL Low 10.0 - 25.0 mg/dL ADM Serum Drugs screened: See Below 6 (12/04/23 8:29 AM) Normal Chemistry S Comment on above: Interpretive Data: T his drug screen is a presumptive screening only. No confirmation will be performed unless requested. Drugs included in the ER serum drug screen are: Threshold Ethanol 10.0 mg/dL Salicylate 2.0 mg/dl Acetaminophen 2.0 mcg/mL Testing has been performed FOR MEDICAL PURPOSES ONLY. LABORATORYOrdered By: SYSTEM SYSTEM on 12-04-2023 Albumin BCP dye [Mass/Vol] 4.5 G/dL Normal 3.2 - 4.8 G/dL ADM SS Albumin/Globulin [Mass ratio] 1.5 {ratio} Normal 0.9 - 1.6 ratio ADM SS ALP [Catalytic activity/Vol] 60 U/L Normal 38 - 126 U/L ADM SS ALT No additional P-5'-P [Catalytic activity/Vol] 12 U/L Normal 12 - 55 U/L ADM SS AST [Catalytic activity/Vol] 20 U/L Normal 8 - 34 U/L ADM SS Basophils (Bld) [#/Vol] 0.0 103/mcL Normal 0.0 - 0.3 10^3/mcL Workflow SS Basophils/100 WBC (Bld) 0.4 % Normal 0.0 - 2.5 % Workflow SS Bilirubin [Mass/Vol] 0.50 mg/dL Normal 0.20 - 1.20 mg/dL ADM SS Comment on above: Interpretive Data: U se of this assay is not recommended for patients undergoing treatment with eltrombopag due to the potential for falsely elevated results. Calcium [Mass/Vol] 9.9 mg/dL Normal 8.7 - 10. 4 mg/dL ADM SS Chloride [Moles/Vol] 107 mmol/L Normal 98 - 11 0 mEq/L ADM SS CO2 [Moles/Vol] 26 mmol/L Normal 22 - 32 mEq/L ADM SS Creatinine [Mass/Vol] 0.87 mg/dL Normal 0.60 - 1.40 mg/dL ADM SS Electrolyte Balance 4.0 mEq/L Normal 4.0 - 15 .0 mEq/L ADM SS Eosinophils (Bld) [#/Vol] 0.2 103/mcL Normal 0.0 - 0.7 10^3/mcL Workflow SS Eosinophils/100 WBC (Bld) 1.9 % Normal 0.0 - 6.0 % Workflow SS Erythrocyte distribution width (RBC) [Ratio] 13.5 % Normal 11.5 - 15.5 % Workflow SS GFR/1.73 sq M.predicted among blacks MDRD (S/P/Bld) [Vol rate/Area] ml/min/1.73sqm Invalid Interpretation Code ADM SS Comment on above: Interpretive Data: GFR Population mean for , Non- Americans Ages 20-29 = 116 mL/min/1.73 sq.m. Ages 30-39 = 107 mL/min/1.73 sq.m. Ages 40-49 = 99 mL/min/1.73 sq.m. Ages 50-59 = 93 mL/min/1.73 sq.m. Ages 60-69 = 85 mL/min/1.73 sq.m. Ages 70+ = 75 mL/min/1.73 sq.m. Chronic Kidney Disease: Less than 60 mL/min/1.73 square meters End Stage Renal Disease: Less than 15 mL/min/1.73 square meters GFR/1.73 sq M.predicted among non-blacks MDRD (S/P/Bld) [Vol rate/Area] ml/min/1.73sqm Invalid Interpretation Code ADM SS Comment on above: Interpretive Data: GFR Population mean for , Non- Americans Ages 20-29 = 116 mL/min/1.73 sq.m. Ages 30-39 = 107 mL/min/1.73 sq.m. Ages 40-49 = 99 mL/min/1.73 sq.m. Ages 50-59 = 93 mL/min/1.73 sq.m. Ages 60-69 = 85 mL/min/1.73 sq.m. Ages 70+ = 75 mL/min/1.73 sq.m. Chronic Kidney Disease: Less than 60 mL/min/1.73 square meters End Stage Renal Disease: Less than 15 mL/min/1.73 square meters Globulin 3.1 G/dL Normal 1.5 - 3.8 G/dL ADM SS Glucose [Mass/Vol] 115 mg/dL High 70 - 110 mg/dL ADM SS Hematocrit (Bld) [Volume fraction] 44.3 % Normal 40.0 - 52.0 % AH Workflow SS Hemoglobin (Bld) [Mass/Vol] 15.2 G/dL Normal 13.0 - 17.5 G/dL AH Workflow SS Lymphocytes (Bld) [#/Vol] 1.6 103/mcL Normal 0.9 - 4.3 10^3/mcL AH Workflow SS Lymphocytes/100 WBC (Bld) 16.0 % Low 20.0 - 40.0 % AH Workflow SS MCH (RBC) [Entitic mass] 33.0 pg Normal 27.0 - 33.0 pg AH Workflow SS MCHC 34.3 G/dL Normal 32.0 - 36.0 G/dL AH Workflow SS MCV (RBC) [Entitic vol] 96.1 fL Normal 81.0 - 100.0 fL AH Workflow SS Monocyte distribution width Auto (Bld) [Entitic vol] 15.15 1 Normal 0.00 - 20.00 AH Workflow SS Comment on above: Result Comment: For ED adult patients suspected of sepsis, MDW<=20.0 does not rule out sepsis or risk of sepsis Monocytes (Bld) [#/Vol] 0.6 103/mcL Normal 0.1 - 1.4 10^3/mcL AH Workflow SS Monocytes/100 WBC (Bld) 6.1 % Normal 2.0 - 13.0 % AH Workflow SS Neutrophils (Bld) [#/Vol] 7.4 103/mcL Normal 2.3 - 8.1 10^3/mcL AH Workflow SS Neutrophils/100 WBC (Bld) 75.6 % High 50.0 - 75.0 % AH Workflow SS Platelet mean volume (Bld) [Entitic vol] 7.9 fL Normal 6.4 - 10.5 fL AH Workflow SS Platelets (Bld) [#/Vol] 269 103/mcL Normal 150 - 450 10^3/mcL AH Workflow SS Potassium [Moles/Vol] 3.9 mmol/L Normal 3.5 - 5.0 mEq/L AH ADM SS Protein [Mass/Vol] 7.6 G/dL Normal 5.7 - 8.2 G/dL AH ADM SS Comment on above: Interpretive Data: * *Note - New Reference Range in effect 20 RBC (Bld) [#/Vol] 4.61 106/mcL Normal 4.50 - 6.00 10^6/mcL AH Workflow SS Sodium [Moles/Vol] 137 mmol/L Normal 136 - 145 mEq/L AH ADM SS Urea nitrogen [Mass/Vol] 8.0 mg/dL Normal 8.0 - 22.0 mg/dL AH ADM SS Urea nitrogen/Creatinine [Mass ratio] 9.2 ratio Low 10.0 - 22.0 ratio AH ADM SS WBC (Bld) [#/Vol] 9.9 103/mcL Normal 4.5 - 10.8 10^3/mcL AH Workflow SS .Auto Diffon 11-03-2023 Basophil, Absolute 0.1 10 3/mcL Normal 0.0-0.3 [facility] ([place] Comment on above: Performed By: #### C VFLURV #### [address] [address] Basophils/100 WBC (Bld) 1.1 % Normal 0.0-2.5 [facility] ([place] Comment on above: Performed By: #### C VFLURV #### [address] [address] Eosinophil, Absolute 0.3 10 3/mcL Normal 0.0-0.7 [facility] [place] Comment [place] above: Performed By: #### C VFLURV #### [address] [address] Eosinophils/100 WBC (Bld) 3.0 % Normal 0.0-6.0 [facility] ([place] Comment on above: Performed By: #### C VFLURV #### [address] [address] Lymphocyte, Absolute 2.9 10 3/mcL Normal 0.9-4.3 [facility] [place] Comment on above: Performed By: #### C VFLURV #### [address] [address] Lymphocytes/100 WBC (Bld) 31.4 % Normal 20.0-40.0 [facility] ([place] Comment on above: Performed By: #### C VFLURV #### [address] [address] Monocyte, Absolute 0.8 10 3/mcL Normal 0.1-1.4 [facility] ([place] Comment on above: Performed By: #### C VFLURV #### [address] [address] Monocytes/100 WBC (Bld) 9.0 % Normal 2.0-13.0 [facility] ([place] Comment on above: Performed By: #### C VFLURV #### [address] [address] Neutrophils/100 WBC (Bld) 55.5 % Normal 50.0-75.0 [facility] ([place] Comment on above: Performed By: #### C VFLURV #### [address] [address] .GFRon 11-03-2023 GFR >60 Normal [facility] ([place] Comment on above: Result Comment: GFR Population mean for , Non- Americans Ages 20-29 = 116 mL/min/1.73 sq.m. Ages 30-39 = 107 mL/min/1.73 sq.m. Ages 40-49 = 99 mL/min/1.73 sq.m. Ages 50-59 = 93 mL/min/1.73 sq.m. Ages 60-69 = 85 mL/min/1.73 sq.m. Ages 70+ = 75 mL/min/1.73 sq.m. Chronic Kidney Disease: Less than 60 mL/min/1.73 square meters End Stage Renal Disease: Less than 15 mL/min/1.73 square meters Performed By: #### D RUGS, ANEU, CMP, CBC, ADIFF, GFR, MDW #### [address] [address] GFR Non- >60 Normal [facility] ([place] Comment on above: Result Comment: GFR Population mean for , Non- Americans Ages 20-29 = 116 mL/min/1.73 sq.m. Ages 30-39 = 107 mL/min/1.73 sq.m. Ages 40-49 = 99 mL/min/1.73 sq.m. Ages 50-59 = 93 mL/min/1.73 sq.m. Ages 60-69 = 85 mL/min/1.73 sq.m. Ages 70+ = 75 mL/min/1.73 sq.m. Chronic Kidney Disease: Less than 60 mL/min/1.73 square meters End Stage Renal Disease: Less than 15 mL/min/1.73 square meters Performed By: #### D RUGS, ANEU, CMP, CBC, ADIFF, GFR, MDW #### [address] [address] .MDWon 11-03-2023 Monocyte Distribution Width 16.70 Normal 0.00-20.00 [facility] ([place] Comment on above: Result Comment: For ED adult patients suspected of sepsis, MDW<=20.0 does not rule out sepsis or risk of sepsis Performed By: #### C VFLURV #### [address] [address] .NEUABSon 11-03-2023 Neutrophil, Absolute 5.2 10 3/mcL Normal 2.3-8.1 [facility] [place] Comment on above: Performed By: #### C VFLURV #### [address] [address] CBCon 11-03-2023 Erythrocyte distribution width (RBC) [Ratio] 13.2 % Normal 11.5-15.5 [facility] ([place] Comment on above: Performed By: #### C VFLURV #### [place] [address] Hematocrit (Bld) [Volume fraction] 45.8 % Normal 40.0-52.0 [facility] ([place] Comment on above: Performed By: #### C VFLURV #### [place] [address] Hgb 15.8 G/dL Normal 13.0-17.5 [facility] ([place] Comment on above: Performed By: #### C VFLURV #### [place] [address] MCH (RBC) [Entitic mass] 32.4 pg Normal 27.0-33.0 [facility] ([place] Comment on above: Performed By: #### C VFLURV #### [place] [address] MCHC 34.5 G/dL Normal 32.0-36.0 [facility] ([place] Comment on above: Performed By: #### C VFLURV #### [place] [address] MCV (RBC) [Entitic vol] 93.9 fL Normal 81.0-100.0 [facility] ([place] Comment on above: Performed By: #### C VFLURV #### [place] [address] Platelet 304 10 3/mcL Normal 150-450 [facility] ([place] Comment on above: Performed By: #### C VFLURV #### [place] [address] Platelet mean volume (Bld) [Entitic vol] 8.4 fL Normal 6.4-10.5 [facility] ([place] Comment on above: Performed By: #### C VFLURV #### [place] [address] RBC 4.87 10 6/mcL Normal 4.50-6.00 [facility] ([place] Comment on above: Performed By: #### C VFLURV #### [address] [address] WBC 9.4 10 3/mcL Normal 4.5-10.8 [facility] ([place] Comment on above: Performed By: #### C VFLURV #### [address] [address] CKon 11-03-2023 CK [Catalytic activity/Vol] 530 U/L High 7-185 [facility] ([place] Comment on above: Performed By: #### D RUGS, ANEU, CMP, CBC, ADIFF, GFR, CHRISSIE #### [address] [address] CMPon 11-03-2023 Albumin Level 4.7 G/dL Normal 3.2-4.8 [facility] ([place] Comment on above: Performed By: #### D RUGS, ANEU, CMP, CBC, ADIFF, GFR, CHRISSIE #### [place] [id number] Albumin/Globulin [Mass ratio] 1.6 {ratio} Normal 0.9-1.6 [facility] ([place] Comment on above: Performed By: #### D RUGS, ANEU, CMP, CBC, ADIFF, GFR, CHRISSIE #### [place] [id number] ALP [Catalytic activity/Vol] 67 U/L Normal 38-126 [facility] ([place] Comment on above: Performed By: #### D RUGS, ANEU, CMP, CBC, ADIFF, GFR, CHRISSIE #### [place] [id number] ALT [Catalytic activity/Vol] 17 U/L Normal 12-55 [facility] ([place] Comment on above: Performed By: #### D RUGS, ANEU, CMP, CBC, ADIFF, GFR, CHRISSIE #### [place] [id number] AST [Catalytic activity/Vol] 33 U/L Normal 8-34 [facility] ([place] Comment on above: Performed By: #### D RUGS, ANEU, CMP, CBC, ADIFF, GFR, MDW #### [address] [address] Bili Total 0.80 mg/dL Normal 0.20-1.20 [facility] ([place] Comment on above: Result Comment: Use of this assay is not recommended for patients undergoing treatment with eltrombopag due to the potential for falsely elevated results. Performed By: #### D RUGS, ANEU, CMP, CBC, ADIFF, GFR, MDW #### [address] [address] BUN/Creatinine Ratio 16.7 ratio Normal 10.0-22.0 [facility] ([place] Comment on above: Performed By: #### D RUGS, ANEU, CMP, CBC, ADIFF, GFR, W #### [address] [address] Calcium [Mass/Vol] 9.5 mg/dL Normal 8.7-10.4 [facility] [facility] ([place] Comment on above: Performed By: #### D RUGS, ANEU, CMP, CBC, ADIFF, GFR, MDW #### [address] [address] Chloride [Moles/Vol] 106 mmol/L Normal 98-110 [facility] ([place]) Comment on above: Performed By: #### D RUGS, ANEU, CMP, CBC, ADIFF, GFR, MDW #### [address] [address] CO2 [Moles/Vol] 22 mmol/L Normal 22-32 [facility] ([place]) Comment on above: Performed By: #### D RUGS, ANEU, CMP, CBC, ADIFF, GFR, MDW #### [address] [address] Creatinine [Mass/Vol] 0.72 mg/dL Normal 0.60-1.40 [facility] ([place]) Comment on above: Performed By: #### D RUGS, ANEU, CMP, CBC, ADIFF, GFR, MDW #### [address] [address] Electrolyte Balance 7.0 mEq/L Normal 4.0-15.0 [facility] ([place]) Comment on above: Performed By: #### D JERRI SPAULDING, CMP, CBC, ADIFF, GFR, CHRISSIE #### [address] [address] Globulin 3.0 G/dL Normal 1.5-3.8 [facility] ([place]) Comment on above: Performed By: #### D CHELLY, ANEU, CMP, CBC, ADIFF, GFR, CHRISSIE #### [address] [address] Glucose [Mass/Vol] 111 mg/dL High 70-110 [facility], [facility] ([place]) Comment on above: Performed By: #### D CHELLY ANEU, CMP, CBC, ADIFF, GFR, CHRISSIE #### [address] [address] Potassium [Moles/Vol] 3.9 mmol/L Normal 3.5-5.0 [facility] ([place]) Comment on above: Performed By: #### D CHELLY, ANEU, CMP, CBC, ADIFF, GFR, CHRISSIE #### [address] [address] Sodium [Moles/Vol] 135 mmol/L Low 136-145 [facility] ([place] Comment on above: Performed By: #### D CHELLY, ANEU, CMP, CBC, ADIFF, GFR, CHRISSIE #### [address] [address] Total Protein 7.7 G/dL Normal 5.7-8.2 [facility] ([place]) Comment on above: Result Comment: No te - New Reference Range in effect 20 Performed By: #### D AGUILARS, ANEU, CMP, CBC, ADIFF, GFR, CHRISSIE #### [address] [address] Urea nitrogen [Mass/Vol] 12.0 mg/dL Normal 8.0-22.0 [facility] ([place]) Comment on above: Performed By: #### D AGUILARS, ANEU, CMP, CBC, ADIFF, GFR, CHRISSIE #### [address] [address] CVFLURVon 11-03-2023 FLU A PCR Negative Normal Negative [facility] ([place]) Comment on above: Result Comment: [place] [id number] Performed By: #### C VFLURV #### [facility] [address] [place] [address] FLU B PCR Negative Normal Negative [facility] ([place]) Comment on above: Result Comment: [place] [id number] Performed By: #### C VFLURV #### [facility] [address] [place] [address] RSV PCR Negative Normal Negative [facility] ([place]) Comment on above: Result Comment: Note s [id number] Performed By: #### C VFLURV #### [address] [address] SARS-CoV-2 (COVID-19) RNA LAN+probe Ql (Unsp spec) Negative Normal Negative [facility] ([place]) Comment on above: Result Comment: Note s [phone] This test has been authorized by FDA under an EUA for use by authorized laboratories and has not been FDA cleared or approved. Results from the Xpert Xpress SARS-CoV-2/Flu/RSV or Xpert Xpress SARS-CoV-2 only test should be correlated with the clinical history, epidemiological data, and other data available to the clinician evaluating the patient. Performance of the Xpert Xpress SARS-CoV-2/Flu/RSV or Xpert Xpress SARS-CoV-2 only test has only been established in nasopharyngeal swab specimens. Erroneous test results might occur from improper specimen collection; failure to follow the recommended sample collection, handling, and storage procedures; technical error; or sample mix-up.False negative results may occur if virus is present at levels below the analytical limit of detection. Viral nucleic acid may persist in vivo, independent of virus viability. Detection of analyte target(s) does not imply that the corresponding virus(es) are infectious or are the causative agents for clinical symptoms.Recent patient exposure to FluMist or other live attenuated influenza vaccines may cause inaccurate positive results. Performed By: #### C VFLURV #### [place] [address] DRUGSon 11-03-2023 Acetaminophen [Mass/Vol] ug/mL Low 10.0-20.0 [facility] ([place]) Comment on above: Performed By: #### D JERRI SPAULDING, CMP, CBC, ADIFF, GFR, CHRISSIE #### [place] [address] Ethanol Level <10.0 Normal [facility] ([place]) Comment on above: Performed By: #### JERRI OLIVAREZ, CMP, CBC, ADIFF, GFR, CHRISSIE #### [place] [address] Salicylate Lvl (ds) <3.0 Low 10.0-25.0 [facility] ([place]) Comment on above: Performed By: #### JERRI OLIVAREZ, CMP, CBC, ADIFF, GFR, CHRISSIE #### [place] [address] Serum Drugs screened: See Below Normal [facility] ([place]) Comment on above: Result Comment: This drug screen is a presumptive screening only. No confirmation will be performed unless requested. Drugs included in the ER serum drug screen are: Threshold Ethanol 10.0 mg/dL Salicylate 2.0 mg/dl Acetaminophen 2.0 mcg/mL Testing has been performed FOR MEDICAL PURPOSES ONLY. Performed By: #### JERRI OLIVAREZ, CMP, CBC, ADIFF, GFR, CHRISSIE #### [place] [address] DRUGUon 11-03-2023 Amphetamine (u) Positive Abnormal Negative [facility] ([place]) Comment on above: Performed By: #### Zamzam SHEIKHU #### [place] [address] Barbiturate (u) Negative Normal Negative [facility] ([place]) Comment on above: Performed By: #### Zamzam SHEIKHU #### [place] [address] Benzodiazepine (u) Negative Normal Negative [facility] ([place]) Comment on above: Performed By: #### Zamzam SHEIKHU #### [place] [address] Cannabinoid (u) Positive Abnormal Negative [facility] ([place]) Comment on above: Performed By: #### D RUGU #### [address] [address] Cocaine Ql (U) Negative Normal Negative [facility] ([place] Comment on above: Performed By: #### D RUGU #### [address] [address] Fentanyl (u) Negative Normal Negative [facility] ([place]) Comment on above: Result Comment: Test ing has been performed FOR MEDICAL PURPOSES ONLY. Performed By: #### D RUGU #### [address] [address] Methadone Ql (U) Negative Normal Negative [facility] ([place]) Comment on above: Performed By: #### Zamzam RUGU #### [address] [address] Opiate (u) Negative Normal Negative [facility] ([place] Comment on above: Performed By: #### Zamzam RUGU #### [address] [address] Oxycodone (u) Negative Normal Negative [facility] ([place]) Comment on above: Result Comment: Test ing has been performed FOR MEDICAL PURPOSES ONLY. Performed By: #### Zamzam RUGU #### [address] [address] PCP (u) Negative Normal Negative [facility] ([place]) Comment on above: Performed By: #### Zamzam RUGU #### [address] [address] Propoxyphene (u) Negative Normal Negative [facility] ([place]) Comment on above: Performed By: #### Zamzam RUGU #### [address] [address] U pH Drug Scrn 5.5 Normal 5.0-8.0 [facility] ([place]) Comment on above: Performed By: #### Zamzam RUGU #### [address] [address] Urine Drugs screened: See Below Normal [facility] ([place]) Comment on above: Result Comment: This drug screen is a presumptive screening only. No confirmation will be performed unless requested. Drugs screened include: Threshold Amphetamines/Methamphetamines 1,000 ng/mL Barbiturates 200 ng/mL Benzodiazepine metabolites 200 ng/mL Cannabinoids (THC metabolites) 50 ng/mL Benzoylecognine (Cocaine metab) 300 ng/mL Opiates 300 ng/mL Phencyclidine (PCP) 25 ng/mL Methadone 300 ng/mL Propoxyphene 300 ng/mL Fentanyl 1.0 ng/mL Oxycodone 100 ng/mL Testing has been performed FOR MEDICAL PURPOSES ONLY. Performed By: #### D AGUILARU #### [place] [id number] TROPHSon 11-03-2023 Troponin I High Sensitivity 13.22 ng/L Normal 0.00-54.00 [facility] ([place]) Comment on above: Performed By: #### D CHELLY, ANEU, CMP, CBC, ADIFF, GFR, MDW #### [address] [address] LABORATORYOrdered By: Marisol Womack on 11-02-2023 Acetaminophen [Mass/Vol] mcg/mL Low 10.0 - 20.0 mcg/mL AH ADM SS Amphetamines Screen Ql (U) Positive *ABN* (11/02/23 10:52 PM) Invalid Interpretation Code Negative AH ADM SS Barbiturates Screen Ql (U) Negative *NA* (11/02/23 10:52 PM) Invalid Interpretation Code Negative AH ADM SS Benzodiazepines Ql (U) Negative *NA* (11/02/23 10:52 PM) Invalid Interpretation Code Negative AH ADM SS Benzoylecgonine Screen Ql (U) Negative *NA* (11/02/23 10:52 PM) Invalid Interpretation Code Negative AH ADM SS Cannabinoids Screen Ql (U) Positive *ABN* (11/02/23 10:52 PM) Invalid Interpretation Code Negative AH ADM SS Ethanol [Mass/Vol] mg/dL Invalid Interpretation Code AH ADM SS fentaNYL Screen Ql (U) Negative 2 *NA* (11/02/23 10:52 PM) Invalid Interpretation Code Negative AH ADM SS Comment on above: Interpretive Data: T esting has been performed FOR MEDICAL PURPOSES ONLY. Methadone Screen Ql (U) Negative *NA* (11/02/23 10:52 PM) Invalid Interpretation Code Negative AH ADM SS Opiates Screen Ql (U) Negative *NA* (11/02/23 10:52 PM) Invalid Interpretation Code Negative AH ADM SS oxyCODONE Ql (U) Negative 3 *NA* (11/02/23 10:52 PM) Invalid Interpretation Code Negative AH ADM SS Comment on above: Interpretive Data: T esting has been performed FOR MEDICAL PURPOSES ONLY. pH (U) 5.5 [pH] Normal 5.0 - 8.0 AH Chemistry S Phencyclidine Ql (U) Negative *NA* (11/02/23 10:52 PM) Invalid Interpretation Code Negative AH ADM SS Propoxyphene Screen Ql (U) Negative *NA* (11/02/23 10:52 PM) Invalid Interpretation Code Negative AH ADM SS Salicylates [Mass/Vol] mg/dL Low 10.0 - 25.0 mg/dL AH ADM SS Serum Drugs screened: See Below 7 (11/02/23 10:52 PM) Normal AH Chemistry S Comment on above: Interpretive Data: T his drug screen is a presumptive screening only. No confirmation will be performed unless requested. Drugs included in the ER serum drug screen are: Threshold Ethanol 10.0 mg/dL Salicylate 2.0 mg/dl Acetaminophen 2.0 mcg/mL Testing has been performed FOR MEDICAL PURPOSES ONLY. Urine Drugs screened: See Below 8 (11/02/23 10:52 PM) Normal AH Chemistry S Comment on above: Interpretive Data: T his drug screen is a presumptive screening only. No confirmation will be performed unless requested. Drugs screened include: Threshold Amphetamines/Methamphetamines 1,000 ng/mL Barbiturates 200 ng/mL Benzodiazepine metabolites 200 ng/mL Cannabinoids (THC metabolites) 50 ng/mL Benzoylecognine (Cocaine metab) 300 ng/mL Opiates 300 ng/mL Phencyclidine (PCP) 25 ng/mL Methadone 300 ng/mL Propoxyphene 300 ng/mL Fentanyl 1.0 ng/mL Oxycodone 100 ng/mL Testing has been performed FOR MEDICAL PURPOSES ONLY. LABORATORYOrdered By: SYSTEM SYSTEM on 11-02-2023 Albumin BCP dye [Mass/Vol] 4.7 G/dL Normal 3.2 - 4.8 G/dL AH ADM SS Albumin/Globulin [Mass ratio] 1.6 {ratio} Normal 0.9 - 1.6 ratio AH ADM SS ALP [Catalytic activity/Vol] 67 U/L Normal 38 - 126 U/L AH ADM SS ALT No additional P-5'-P [Catalytic activity/Vol] 17 U/L Normal 12 - 55 U/L AH ADM SS AST [Catalytic activity/Vol] 33 U/L Normal 8 - 34 U/L AH ADM SS Basophils (Bld) [#/Vol] 0.1 103/mcL Normal 0.0 - 0.3 10^3/mcL AH Workflow SS Basophils/100 WBC (Bld) 1.1 % Normal 0.0 - 2.5 % Workflow SS Bilirubin [Mass/Vol] 0.80 mg/dL Normal 0.20 - 1.20 mg/dL ADM SS Comment on above: Interpretive Data: U se of this assay is not recommended for patients undergoing treatment with eltrombopag due to the potential for falsely elevated results. Calcium [Mass/Vol] 9.5 mg/dL Normal 8.7 - 10. 4 mg/dL ADM SS Chloride [Moles/Vol] 106 mmol/L Normal 98 - 11 0 mEq/L ADM SS CK [Catalytic activity/Vol] 530 U/L High 7 - 185 U/L ADM SS CO2 [Moles/Vol] 22 mmol/L Normal 22 - 32 mEq/L ADM SS Creatinine [Mass/Vol] 0.72 mg/dL Normal 0.60 - 1.40 mg/dL ADM SS Electrolyte Balance 7.0 mEq/L Normal 4.0 - 15 .0 mEq/L ADM SS Eosinophils (Bld) [#/Vol] 0.3 103/mcL Normal 0.0 - 0.7 10^3/mcL Workflow SS Eosinophils/100 WBC (Bld) 3.0 % Normal 0.0 - 6.0 % Workflow SS Erythrocyte distribution width (RBC) [Ratio] 13.2 % Normal 11.5 - 15.5 % Workflow SS GFR/1.73 sq M.predicted among blacks MDRD (S/P/Bld) [Vol rate/Area] ml/min/1.73sqm Invalid Interpretation Code ADM SS Comment on above: Interpretive Data: GFR Population mean for , Non- Americans Ages 20-29 = 116 mL/min/1.73 sq.m. Ages 30-39 = 107 mL/min/1.73 sq.m. Ages 40-49 = 99 mL/min/1.73 sq.m. Ages 50-59 = 93 mL/min/1.73 sq.m. Ages 60-69 = 85 mL/min/1.73 sq.m. Ages 70+ = 75 mL/min/1.73 sq.m. Chronic Kidney Disease: Less than 60 mL/min/1.73 square meters End Stage Renal Disease: Less than 15 mL/min/1.73 square meters GFR/1.73 sq M.predicted among non-blacks MDRD (S/P/Bld) [Vol rate/Area] ml/min/1.73sqm Invalid Interpretation Code ADM SS Comment on above: Interpretive Data: GFR Population mean for , Non- Americans Ages 20-29 = 116 mL/min/1.73 sq.m. Ages 30-39 = 107 mL/min/1.73 sq.m. Ages 40-49 = 99 mL/min/1.73 sq.m. Ages 50-59 = 93 mL/min/1.73 sq.m. Ages 60-69 = 85 mL/min/1.73 sq.m. Ages 70+ = 75 mL/min/1.73 sq.m. Chronic Kidney Disease: Less than 60 mL/min/1.73 square meters End Stage Renal Disease: Less than 15 mL/min/1.73 square meters Globulin 3.0 G/dL Normal 1.5 - 3.8 G/dL ADM SS Glucose [Mass/Vol] 111 mg/dL High 70 - 110 mg/dL ADM SS Hematocrit (Bld) [Volume fraction] 45.8 % Normal 40.0 - 52.0 % Workflow SS Hemoglobin (Bld) [Mass/Vol] 15.8 G/dL Normal 13.0 - 17.5 G/dL Workflow SS Lymphocytes (Bld) [#/Vol] 2.9 103/mcL Normal 0.9 - 4.3 10^3/mcL Workflow SS Lymphocytes/100 WBC (Bld) 31.4 % Normal 20.0 - 40.0 % Workflow SS MCH (RBC) [Entitic mass] 32.4 pg Normal 27.0 - 33.0 pg Workflow SS MCHC 34.5 G/dL Normal 32.0 - 36.0 G/dL Workflow SS MCV (RBC) [Entitic vol] 93.9 fL Normal 81.0 - 100.0 fL AH Workflow SS Monocyte distribution width Auto (Bld) [Entitic vol] 16.70 1 Normal 0.00 - 20.00 AH Workflow SS Comment on above: Result Comment: For ED adult patients suspected of sepsis, MDW<=20.0 does not rule out sepsis or risk of sepsis Monocytes (Bld) [#/Vol] 0.8 103/mcL Normal 0.1 - 1.4 10^3/mcL AH Workflow SS Monocytes/100 WBC (Bld) 9.0 % Normal 2.0 - 13.0 % AH Workflow SS Neutrophils (Bld) [#/Vol] 5.2 103/mcL Normal 2.3 - 8.1 10^3/mcL AH Workflow SS Neutrophils/100 WBC (Bld) 55.5 % Normal 50.0 - 75.0 % AH Workflow SS Platelet mean volume (Bld) [Entitic vol] 8.4 fL Normal 6.4 - 10.5 fL AH Workflow SS Platelets (Bld) [#/Vol] 304 103/mcL Normal 150 - 450 10^3/mcL AH Workflow SS Potassium [Moles/Vol] 3.9 mmol/L Normal 3.5 - 5.0 mEq/L ADM SS Protein [Mass/Vol] 7.7 G/dL Normal 5.7 - 8.2 G/dL ADM SS Comment on above: Interpretive Data: * *Note - New Reference Range in effect 20 RBC (Bld) [#/Vol] 4.87 106/mcL Normal 4.50 - 6.00 10^6/mcL AH Workflow SS Sodium [Moles/Vol] 135 mmol/L Low 136 - 145 mEq/L ADM SS Troponin I.cardiac DL <= 0.01 ng/mL [Mass/Vol] 13.22 ng/L Normal 0.00 - 54.00 ng/L AH ADM SS Urea nitrogen [Mass/Vol] 12.0 mg/dL Normal 8.0 - 22.0 mg/dL ADM SS Urea nitrogen/Creatinine [Mass ratio] 16.7 ratio Normal 10.0 - 22.0 ratio ADM SS WBC (Bld) [#/Vol] 9.4 103/mcL Normal 4.5 - 10.8 10^3/mcL AH Workflow SS LABORATORYOrdered By: So Cano on 11-02-2023 FLUAV RNA LAN+probe Ql (Resp) Negative 11 (11/02/23 10:52 PM) Normal Negative AH Auto Viro/Sero SS Comment on above: Result Comment: [place] [id number] FLUBV RNA LAN+probe Ql (Resp) Negative 12 (11/02/23 10:52 PM) Normal Negative AH Auto Viro/Sero SS Comment on above: Result Comment: [place] [id number] RSV PCR Negative 13 (11/02/23 10:52 PM) Normal Negative AH Auto Viro/Sero SS Comment on above: Result Comment: [place] [id number] SARS-CoV-2 (COVID-19) RNA LAN+probe Ql (Resp) Negative 9, 10 (11/02/23 10:52 PM) Normal Negative AH Auto Viro/Sero SS Comment on above: Result Comment: [place] [id number] Interpretive Data: T his test has been authorized by FDA under an EUA for use by authorized laboratories and has not been FDA cleared or approved. Results from the Xpert Xpress SARS-CoV-2/Flu/RSV or Xpert Xpress SARS-CoV-2 only test should be correlated with the clinical history, epidemiological data, and other data available to the clinician evaluating the patient. Performance of the Xpert Xpress SARS-CoV-2/Flu/RSV or Xpert Xpress SARS-CoV-2 only test has only been established in nasopharyngeal swab specimens. Erroneous test results might occur from improper specimen collection; failure to follow the recommended sample collection, handling, and storage procedures; technical error; or sample mix-up.False negative results may occur if virus is present at levels below the analytical limit of detection. Viral nucleic acid may persist in vivo, independent of virus viability. Detection of analyte target(s) does not imply that the corresponding virus(es) are infectious or are the causative agents for clinical symptoms.Recent patient exposure to FluMist or other live attenuated influenza vaccines may cause inaccurate positive results. CBC panel Auto (Bld)on 08-29 Erythrocyte distribution width (RBC) [Ratio] 12.9 % Normal 11.5-15.0 [facility] Comment on above: Order Comment: Speci men Type: BLOOD SPECIMENOrdering Facility: [facility] Address: [address] [place] [address] [place] [id number] Performed By: #### 5 8410-2 ####[facility] [id number] [address] [place] Hematocrit (Bld) [Volume fraction] 40.6 % Normal 39.0-51.0 [facility] Comment on above: Order Comment: Speci men Type: BLOOD SPECIMENOrdering Facility: [facility] Address: [address] [place] [address] Performed By: #### 5 8410-2 ####[facility] [id number] [address] [place] Hemoglobin (Bld) [Mass/Vol] 13.9 g/dL Normal 13.0-17.0 [facility] Comment on above: Order Comment: Speci men Type: BLOOD SPECIMENOrdering Facility: [facility] Address: [address] [place] [address] Performed By: #### 5 8410-2 ####[facility] [id number] [address] [place] MCH (RBC) [Entitic mass] 30.8 pg Normal 26.0-34.0 [facility] Comment on above: Order Comment: Speci men Type: BLOOD SPECIMENOrdering Facility: [facility] Address: [address] [place] [address] Performed By: #### 5 8410-2 ####[facility] [id number] [address] [place] MCHC (RBC) [Mass/Vol] 34.2 g/dL Normal 30.5-36.0 [facility] Comment on above: Order Comment: Speci men Type: BLOOD SPECIMENOrdering Facility: [facility] Address: [address] [place] [address] Performed By: #### 5 8410-2 ####[facility] [id number] [address] MCV (RBC) [Entitic vol] 90.0 fL Normal 80.0-100.0 [facility] Comment on above: Order Comment: Speci men Type: BLOOD SPECIMENOrdering Facility: [facility] Address: [facility] [place] [place] [address] Performed By: #### 5 8410-2 ####[facility] [id number] [place] [id number] [place] Nucleated RBC (Bld) [#/Vol] 10*3/uL Normal <0.01 [facility] Comment on above: Order Comment: Speci men Type: BLOOD SPECIMENOrdering Facility: [facility] Address: [address] [place] [address] Performed By: #### 5 8410-2 ####[facility] [id number] [place] [id number] [place] Platelet mean volume (Bld) [Entitic vol] 9.6 fL Normal 9.0-12.7 [facility] Comment on above: Order Comment: Speci men Type: BLOOD SPECIMENOrdering Facility: [facility] Address: [address] [place] [address] Performed By: #### 5 8410-2 ####[facility] [id number] [place] [address] [place] Platelets (Bld) [#/Vol] 319 10*3/uL Normal 150-400 [facility] Comment on above: Order Comment: Speci men Type: BLOOD SPECIMENOrdering Facility: [facility] Address: [address] [place] [address] Performed By: #### 5 8410-2 ####[facility] [id number] [place] [address] [place] RBC (Bld) [#/Vol] 4.51 10*6/uL Normal 4.20-6.00 [facility] Comment on above: Order Comment: Speci men Type: BLOOD SPECIMENOrdering Facility: [facility] Address: [address] [place] [address] Performed By: #### 5 8410-2 ####[facility] [id number] [place] [address] [place] WBC (Bld) [#/Vol] 10.09 10*3/uL Normal 3.70-11.00 [facility] Comment on above: Order Comment: Speci men Type: BLOOD SPECIMENOrdering Facility: [facility] Address: [place] [address] Performed By: #### 5 8410-2 ####[facility] LABCLIA [id number] [place] [address] [place] Comprehensive metabolic 2000 panelon 08-29-2023 Albumin [Mass/Vol] 4.6 g/dL Normal 3.9-4.9 [facility] Comment on above: Order Comment: Speci men Type: BLOOD SPECIMENOrdering Facility: [facility] Address: [address] [place] [address] Performed By: #### 5 643-2, 26684-6 ####[facility] [id number] [place] [address] [place] ALP [Catalytic activity/Vol] 73 U/L Normal 38-113 [facility] Comment on above: Order Comment: Speci men Type: BLOOD SPECIMENOrdering Facility: [facility] Address: [address] [place] [address] Performed By: #### 5 643-2, 16969-9 ####[facility] [id number] [place] [address] [place] ALT [Catalytic activity/Vol] 60 U/L High 10-54 [facility] Comment on above: Order Comment: Speci men Type: BLOOD SPECIMENOrdering Facility: [facility] Address: [address] [place] [address] Performed By: #### 5 643-2, 22620-9 ####[facility] LABCLIA [id number] [place] [address] [place] Anion gap [Moles/Vol] 14 mmol/L Normal 9-18 [facility] Comment on above: Order Comment: Speci men Type: BLOOD SPECIMENOrdering Facility: [facility] Address: [address] [place] [address] Performed By: #### 5 643-2, 34866-3 ####[facility] LABCLIA [id number] [place] [address] [place] AST [Catalytic activity/Vol] 29 U/L Normal 14-40 [facility] Comment on above: Order Comment: Speci men Type: BLOOD SPECIMENOrdering Facility: [facility] Address: [address] [place] [address] Performed By: #### 5 643-2, ####[facility] [id number] [place] [address] [place] Bilirubin [Mass/Vol] mg/dL Low 0.2-1.3 [facility] Comment on above: Order Comment: Speci men Type: BLOOD SPECIMENOrdering Facility: [facility] Address: [address] [place] [address] Performed By: #### 5 643-2, ####[facility] [id number] [place] [address] [place] Calcium [Mass/Vol] 9.9 mg/dL Normal 8.5-10.2 [facility] Comment on above: Order Comment: Speci men Type: BLOOD SPECIMENOrdering Facility: [facility] Address: [address] [place] [address] Performed By: #### 5 643-2, ####[facility] [id number] [place] [address] [place] Chloride [Moles/Vol] 97 mmol/L Normal 97-105 [facility] Comment on above: Order Comment: Speci men Type: BLOOD SPECIMENOrdering Facility: [facility] Address: [address] [place] [address] Performed By: #### 5 643-2, ####[facility] [id number] [place] [address] [place] CO2 [Moles/Vol] 27 mmol/L Normal 22-30 [facility] Comment on above: Order Comment: Speci men Type: BLOOD SPECIMENOrdering Facility: [facility] Address: [address] [place] [address] Performed By: #### 5 643-2, 22729-2 ####[facility] LABCLIA [id number] [place] [address] [place] Creatinine [Mass/Vol] 0.80 mg/dL Normal 0.73-1.22 [facility] Comment on above: Order Comment: Benjamin aguirre Type: BLOOD SPECIMENOrdering Facility: [facility] Address: [address] [place] [address] Performed By: #### 5 643-2, 65863-6 ####[facility] [id number] [place] [address] [place] Creatinine and Glomerular filtration rate.predicted panel (S/P/Bld) 115 mL/min/1.73m??? Normal >=60 [facility] Comment on above: Order Comment: Benjamin aguirre Type: BLOOD SPECIMENOrdering Facility: [facility] Address: [address] [place] [address] Result Comment: Emily mated Glomerular Filtration Rate (eGFR) is calculated using the 2020 CKD-EPI creatinine equation. This equation utilizes serum creatinine, sex, and age as parameters. The creatinine assay has traceable calibration to isotope dilution-mass spectrometry. Refer to KDIGO guidelines for clinical interpretation. In patients with unstable renal function, e.g. those with acute kidney injury, the eGFR may not accurately reflect actual GFR. Performed By: #### 5 643-2, 61826-3 ####[facility] [id number] [place] [address] [place] Glucose [Mass/Vol] 101 mg/dL High 74-99 [facility] Comment on above: Order Comment: Benjamin aguirre Type: BLOOD SPECIMENOrdering Facility: [facility] Address: [address] [place] [address] Result Comment: The [place] Diabetes Association (ADA) provides guidance for cutoff values for fasting glucose and random glucose. The ADA defines fasting as no caloric intake for at least 8 hours. Fasting plasma glucose results between 100 to 125 mg/dL indicate increased risk for diabetes (prediabetes). Fasting plasma glucose results greater than or equal to 126 mg/dL meet the criteria for diagnosis of diabetes. In the absence of unequivocal hyperglycemia, results should be confirmed by repeat testing. In a patient with classic symptoms of hyperglycemia or hyperglycemic crisis, random plasma glucose results greater than or equal to 200 mg/dL meet the criteria for diagnosis of diabetes. Reference: Standards of Medical Care in Diabetes 2016, [place] Diabetes Association. Diabetes Care. 2016.39(Suppl 1). Performed By: #### 5 643-2, 19793-2 ####[facility] [id number] [place] [address] [place] Potassium [Moles/Vol] 3.5 mmol/L Low 3.7-5.1 [facility] Comment on above: Order Comment: Speci men Type: BLOOD SPECIMENOrdering Facility: [facility] Address: [address] [place] [address] Performed By: #### 5 643-2, 12929-3 ####[facility] [id number] [place] [address] [place] Protein [Mass/Vol] 7.3 g/dL Normal 6.3-8.0 [facility] Comment on above: Order Comment: Speci men Type: BLOOD SPECIMENOrdering Facility: [facility] Address: [address] [place] [address] Performed By: #### 5 643-2, ####[facility] [id number] [place] [address] [place] Sodium [Moles/Vol] 138 mmol/L Normal 136-144 [facility] Comment on above: Order Comment: Speci men Type: BLOOD SPECIMENOrdering Facility: [facility] Address: [address] [place] [address] Performed By: #### 5 643-2, 74499-7 ####[facility] [id number] [place] [address] [place] Urea nitrogen [Mass/Vol] 10 mg/dL Normal 9-24 [facility] Comment on above: Order Comment: Speci men Type: BLOOD SPECIMENOrdering Facility: [facility] Address: [address] [place] [address] Performed By: #### 5 643-2, 26317-5 ####[facility]CLIA [id number] [address] OF [facility] ECG COMPLETEon 08-29-2023 ECG COMPLETE Ventricular Rate : 7 4 BPM Atrial Rate : 74 BPM P-R Interval : 152 ms QRS Duration : 86 ms Q-T Interval : 372 ms QTC Calculation(Bazett) : 412 ms Calculated P [place] : 66 degrees Calculated R [place] : 47 degrees Calculated T [place] : 48 degrees Normal sinus rhythm Minimal voltage criteria for LVH, may be normal variant ( Sokolow-Akins ) When compared with ECG of 23-MAY-2022 19:09, T wave amplitude has increased in Lateral leads Confirmed by PHUC SCOTT MD ([id number]) on 08/30/2023 5:56:12 PM NAME : JAKI KELSEY PID : [id number] : 1985 Gender : Male Race : ORD : [id number] Procedure Date : Aug 29 2023 17:49:00 Edit Date : Aug 30 2023 17:56:12 Diagnosis: Normal sinus rhythm Minimal voltage criteria for LVH, may be normal variant ( Sokolow-Akins ) When compared with ECG of 23-MAY-2022 19:09, T wave amplitude has increased in Lateral leads Confirmed by PHUC SCOTT MD ([id number]) on 08/30/2023 5:56:12 PM Test Reason : HCS Location : 3 : ED ED Overread By : PHUC SCOTT MD Edited By : PHUC SCOTT MD Referred By : , Acquired by : mari [facility] ED NOTEon 08-29-2023 ED NOTE HNO ID: [id number] Author: Abril Goins, CT Service: ? Author Type: Clinical Paper Testing Supervisor Type: ED Notes Filed: 08/29/2023 7:48 PM Note Text: Brenda pt partner called for an update not listed but her phone number is the one listed would like to know any info [phone] [facility] ED NOTE HNO ID: [id number] Author: Glo Clement CT Service: ? Author Type: Clinical Paper Testing Supervisor Type: ED Notes Filed: 08/29/2023 6:39 PM Note Text: PT SPEAKING WITH CENTRAL INTAKE. PT PACING THE ROOM ON THE PHONE [facility] ED NOTE HNO ID: [id number] Author: Glo Clement CT Service: ? Author Type: Clinical Paper Testing Supervisor Type: ED Notes Filed: 08/29/2023 6:14 PM Note Text: PT IS STANDING IN DOORWAY AND PICKING SCABS OFF OF SKIN (ARMS AND BACK). [facility] ED NOTE HNO ID: [id number] Author: Glo Clement CT Service: ? Author Type: Clinical Paper Testing Supervisor Type: ED Notes Filed: 08/29/2023 6:05 PM Note Text: PT RAMBLING IN DOORWAY, PT STATED SOON CAROLE IS OVER I AM FLEEING THE STATE, WELL THAT'S IF I GET A RIDE TO GET ME OUT. [facility] ED NOTE HNO ID: [id number] Author: Glo Clement CT Service: ? Author Type: Clinical Paper Testing Supervisor Type: ED Notes Filed: 08/29/2023 6:01 PM Note Text: PT STANDING IN DOORWAY OF ROOM, RAMBLING ABOUT HOW HE KEEPS GETTING CHARGES. OTHERWISE COOPERATIVE. [facility] ED NOTE HNO ID: [id number] Author: Mihaela Campbell RN Service: ? Author Type: Registered Nurse Type: ED Notes Filed: 08/29/2023 5:27 PM Note Text: PT BROUGHT IN BY [employer] AND ESCORTED BY [employer] DEPT. ACCORDING TO PINK SLIP PT CALLED POLICE AND REPORTED PEOPLE IN THE [place] ARE HACKING HIS PHONE. STATED TO POLICE HE FOLLOWED A SIGNAL AND LEAD THE POLICE OUTSIDE OF THE ADDRESS CALLED FROM. PT ALSO REPORTED TO POLICE HE WAS TALKING TO THE FLOOR AND HAVING PEOPLE MOCK HIM. ADMITS TO METH USE ONE WEEK AGO. PT DENIES TO COMMENT OR CONFIRM INFORMATION AT THIS TIME. [facility] ED NOTE HNO ID: [id number] Author: Jenny Hernadez, NICO Service: ? Author Type: Registered Nurse Type: ED Notes Filed: 08/29/2023 5:20 PM Note Text: Bed: 16-ED Expected date: 08/29/23 Expected time: 5:03 PM Means of arrival: [facility] Comments: 38 yo male; pink slipped. Meth 2 weeks prior. Hallucinations. [facility] ED PROV NOTEon 08-29-2023 ED PROV NOTE HNO ID: [id number] Author: Rachael Houser, DO Service: ? Author Type: Physician Type: ED Provider Notes Filed: 08/29/2023 8:50 PM Note Text: ED Provider Note Patient Name: Jaki Kelsey : 1985 SERVICE DATE: 08/29/23 History Patient presents with: Hallucinations Patient is a 38-year-old male presenting to the emergency department with chief complaint of hallucinations. Patient got brought in by police after they wrote the pink slip on him. Apparently patient has a history of ADHD, bipolar, depression, PTSD, anxiety. Patient is not on medications for these currently. He states medications helped in the past. 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 He is denying any suicidal or homicidal ideation but today he states that he went to a house where he used to stay, however he is no longer allowed to be there. Apparently he was outside the house and states that he was hearing people talk to him from under the floors. Patient states that someone hacked his phone also but patient states only he knows how to hacked his phone legally. Patient called police himself and was having this paranoia and was brought here for further evaluation. Patient is a poor historian and does have rapid pressured speech, appears to be tangential in his thought process and flight of ideas. 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 Social History Tobacco Use - Smoking status: Every Day Packs/day: .5 Types: Cigarettes - Smokeless tobacco: Never Substance and Sexual Activity - Alcohol use: Not Currently - Drug use: Yes Types: Amphetamines - Sexual activity: Not on file ALLERGIES Allergen Reactions - Depakote [Divalproe* Unknown - Penicillins Unknown Review of Systems All other systems reviewed and are negative. Physical Exam Vitals BP Pulse Temp Temp src Resp SpO2 Weight Height 08/29/23 1741 08/29/23 1741 08/29/23 1927 [id number]/29/23174008/29/23174008/29/231740 -- 140/92 83 36.7 ?C (98.1 ?F) Oral 16 98 % 54.6 kg (120 lb 4.8 oz) Physical Exam Vitals and nursing note reviewed. Constitutional: General: He is not in acute distress. Appearance: He is not ill-appearing, toxic-appearing or diaphoretic. Comments: Disheveled appearance HENT: Head: Normocephalic and atraumatic. Mouth/Throat: Mouth: Mucous membranes are moist. Pharynx: Oropharynx is clear. Eyes: General: No scleral icterus. Conjunctiva/sclera: Conjunctivae normal. Cardiovascular: Rate and Rhythm: Normal rate and regular rhythm. Pulses: Normal pulses. Heart sounds: No murmur heard. Pulmonary: Effort: Pulmonary effort is normal. Breath sounds: Normal breath sounds. No stridor. No wheezing or rhonchi. Abdominal: General: Abdomen is flat. There is no distension. Palpations: Abdomen is soft. Tenderness: There is no abdominal tenderness. There is no guarding or rebound. Musculoskeletal: General: No swelling. Cervical back: No rigidity. Right lower leg: No edema. Left lower leg: No edema. Skin: General: Skin is warm and dry. Capillary Refill: Capillary refill takes less than 2 seconds. Findings: No rash. Neurological: General: No focal deficit present. Mental Status: He is alert and oriented to person, place, and time. Mental status is at baseline. Psychiatric: Attention and Perception: Attention normal. Mood and Affect: Mood is anxious. Speech: Speech is rapid and pressured and tangential. Behavior: Behavior is cooperative. Thought Content: Thought content is paranoid. Thought content does not include homicidal or suicidal ideation. Thought content does not include homicidal or suicidal plan. Diagnostic Testing ED Labs Ordered and Reviewed COMP METABOLIC PANEL - Abnormal; Notable for the following components: Result Value Ref Range Bilirubin, Total <0.2 (*) 0.2 - 1.3 mg/dL ALT 60 (*) 10 - 54 U/L Glucose 101 (*) 74 - 99 mg/dL Potassium 3.5 (*) 3.7 - 5.1 mmol/L All other components within normal limits TOX SCREEN ROUT UR - Abnormal; Notable for the following components: Cannabinoids, Urine Positive (*) Negative All other components within normal limits Narrative: Immunoassay screen only. Cross reactivity with other substances can occur with immunoassay screening. Detection of any drug(s) in this urine toxicology panel is presumptive only. These tests are for medical purposes only and should not be used for compliance monitoring, legal, or forensic use. Samples should be wit (more content not included)... Normal [facility] Ethanol SerPl-mCncon 023 Ethanol [Mass/Vol] mg/dL Normal <11 [facility] Comment on above: Order Comment: Speci men Type: BLOOD SPECIMEN [facility] Address: [address] [place] [address] Performed By: #### 5 643-2, 54482-4 #### [facility] CLIA [id number] [address] [place] [address] [place] SARS-CoV-2 RNA Resp Ql LAN+p robeon 08-29-2023 SARS-CoV-2 (COVID-19) RNA LAN+probe Ql (Resp) COVID 19 RESULT: Not detected The method used is RT-PCR or an equivalent NAAT method. Reference Range(the expected result in uninfected individuals): Not detected Normal [facility] Comment on above: Performed By: #### 9 4500-6 #### [facility] CLIA [id number] [address] [place] [address] [place] TOX SCREEN ROUT URon 023 Amphetamines Confirm (U) [Mass/Vol] Negative Normal Negative [facility] Comment on above: Order Comment: Speci men Type: URINE SPECIMENOrdering Facility: [facility] Address: [address] [place] [address] Result Comment: Cuto ff threshold at 1000 ng/mL. Performed By: #### U TOX2 ####[facility] [id number] [place] [address] [place] BARBITURATES, URINE Negative Normal Negative [facility] Comment on above: Order Comment: Speci men Type: URINE SPECIMENOrdering Facility: [facility] Address: [address] [place] [address] Result Comment: Cuto ff threshold at 200 ng/mL. Performed By: #### U TOX2 ####[facility]CLIA [id number] [place] [address] [place] BENZODIAZEPINES, UR Negative Normal Negative [facility] Comment on above: Order Comment: Speci men Type: URINE SPECIMENOrdering Facility: [facility] Address: [address] [place] [address] Result Comment: Cuto ff threshold at 200 ng/mL. Performed By: #### U TOX2 ####[facility] [id number] [place] [address] [place] Cannabinoids Screen Ql (U) Positive Abnormal Negative [facility] Comment on above: Order Comment: Speci men Type: URINE SPECIMENOrdering Facility: [facility] Address: [address] [place] [address] Result Comment: Cuto ff threshold at 50 ng/mL. Performed By: #### U TOX2 ####[facility] [id number] [place] [address] [place] Cocaine Ql (U) Negative Normal Negative [facility] Comment on above: Order Comment: Speci men Type: URINE SPECIMENOrdering Facility: [facility] Address: [address] [place] [address] Result Comment: Cuto ff threshold at 300 ng/mL. Performed By: #### U TOX2 ####[facility] [id number] [address] [place] Opiates Screen Ql (U) Negative Normal Negative [facility] Comment on above: Order Comment: Speci men Type: URINE SPECIMENOrdering Facility: [facility] Address: [address] [place] [address] Result Comment: Cuto ff threshold at 300 ng/mL. Performed By: #### U TOX2 ####[facility] [id number] [address] [place] oxyCODONE cutoff Screen (U) [Mass/Vol] Negative Normal Negative [facility] Comment on above: Order Comment: Speci men Type: URINE SPECIMENOrdering Facility: [facility] Address: [address] [place] [address] Result Comment: Cuto ff threshold at 100 ng/mL. Performed By: #### U TOX2 ####[facility] [id number] [place] [address] [place] Phencyclidine Ql (U) Negative Normal Negative [facility] Comment on above: Order Comment: Speci men Type: URINE SPECIMENOrdering Facility: [facility] Address: [address] [place] [address] Result Comment: Cuto ff threshold at 25 ng/mL. Performed By: #### U TOX2 ####[facility] [id number] [place] [address] [place] Urinalysis complete panel (U )on 08-29-2023 Bilirubin Ql (U) Negative Normal Negative [facility] Comment on above: Order Comment: Speci men Type: URINE SPECIMEN [facility] Address: [address] [place] [address] Performed By: #### 2 4356-8 #### [facility] CLIA [id number] [address] [place] [address] [place] Clarity (Unsp spec) Clear Normal Clear [facility] Comment on above: Order Comment: Speci men Type: URINE SPECIMEN [facility] Address: [address] [place] [address] Performed By: #### 2 4356-8 #### [facility] CLIA [id number] [address] [place] [address] [place] Color (U) Yellow Normal Yellow [facility] Comment on above: Order Comment: Speci men Type: URINE SPECIMEN [facility] Address: [address] [place] [address] Performed By: #### 2 4356-8 #### [facility] CLIA [id number] [address] [place] [address] [place] Glucose Test strip (U) [Mass/Vol] Negative Normal Negative [facility] Comment on above: Order Comment: Speci men Type: URINE SPECIMEN [facility] Address: [address] [place] [address] Performed By: #### 2 4356-8 #### [facility] CLIA [id number] [address] [place] [address] [place] Hemoglobin Ql (U) Negative Normal Negative [facility] Comment on above: Order Comment: Speci men Type: URINE SPECIMEN [facility] Address: [address] [place] [address] Performed By: #### 2 4356-8 #### [facility] CLIA [id number] [address] [place] [address] [place] Ketones Ql (U) Negative Normal Negative [facility] Comment on above: Order Comment: Speci men Type: URINE SPECIMEN [facility] Address: [address] [place] [address] Performed By: #### 2 4356-8 #### [facility] CLIA [id number] [address] [place] [address] [place] Leukocyte esterase Test strip Ql (U) Negative Normal Negative [facility] Comment on above: Order Comment: Speci men Type: URINE SPECIMEN [facility] Address: [address] [place] [address] Performed By: #### 2 4356-8 #### [facility] CLIA [id number] [address] [place] [address] [place] Nitrite Ql (U) Negative Normal Negative [facility] Comment on above: Order Comment: Speci men Type: URINE SPECIMEN [facility] Address: [address] [place] [address] Performed By: #### 2 4356-8 #### [facility] CLIA [id number] [address] [place] [address] [place] pH (U) 6.5 [pH] Normal 5.0-8.0 [facility] Comment on above: Order Comment: Speci men Type: URINE SPECIMEN [facility] Address: [address] [place] [address] Performed By: #### 2 4356-8 #### [facility] CLIA [id number] [address] [place] [address] [place] Protein (U) [Mass/Vol] Negative Normal Negative [facility] Comment on above: Order Comment: Speci men Type: URINE SPECIMEN [facility] Address: [address] [place] [address] Performed By: #### 2 4356-8 #### [facility] [place] [id number] [address] [place] [address] [place] RBC LM.HPF (Urine sed) [#/Area] 0-3 /HPF Normal 0-3 /HPF [facility] Comment on above: Order Comment: Speci men Type: URINE SPECIMEN [facility] Address: [address] [place] [address] Performed By: #### 2 4356-8 #### [facility] [place] [id number] [address] [place] [address] [place] Specific gravity (U) [Rel density] <=1.005 Normal 1.005-1.03 0 [facility] Comment on above: Order Comment: Speci men Type: URINE SPECIMEN [facility] Address: [address] [place] [address] Performed By: #### 2 4356-8 #### [facility] [place] [id number] [address] [place] [address] [place] Urobilinogen Ql (U) 0.2 EU/dL Normal 0.2-1.0 EU/dL [facility] Comment on above: Order Comment: Speci men Type: URINE SPECIMEN [facility] Address: [address] [place] [address] Performed By: #### 2 4356-8 #### [facility] [place] [id number] [address] [place] [address] [place] WBC LM.HPF (Urine sed) [#/Area] 0-5 /HPF Normal 0-5 /HPF [facility] Comment on above: Order Comment: Speci men Type: URINE SPECIMEN [facility] Address: [address] [place] [address] Performed By: #### 2 4356-8 #### [facility] CLIA [id number] [address] [place] [address] URINE CULTUREon 08-16-2023 Bacteria identified Cx Nom (U) RUN DATE: 08/18/23 Laboratory LIVE PAGE 1 RUN TIME: 717 Specimen Inquiry RUN USER: INTERFACE [facility] Department of Laboratories [address] [place] [address] PATIENT: JAKI KELSEY LOC: [facility] U #: [id number] HOME PHONE: AGE/SX: 38/M ROOM: RE08/16/[address]: Oliver Isidro DO : 81 BED: DIS: STATUS: REG REF LAB O/S: Specimen: [id number] Collected: 08/16/23-719 Status: IRMA Varela#: [id number] Received: 08/16/23 Source: UR CC Sp Desc: Subm Dr: Oliver Isidro DO Ordered: URINE CULTURE Procedure Result Verified > URINE CULTURE Final 08/18/23 NO GROWTH AFTER 36 HOURS END OF REPORT Normal [facility] Comment on above: Performed By: #### C YOGI #### ZEYADL [address] [address] FTAon 05-15-2023 FTA-ABS Reactive Abnormal Non-Reacti ve [facility] ([place]) Comment on above: Result Comment: The FTA is a treponemal test useful as a confirmatory serological test for syphilis, performed when a RPR test is reactive. It is also useful as an aid in the diagnosis of latent or late syphilis when the RPR may be negative. It can NOT be used to monitor response to antibiotic therapy. The FTA will remain reactive, possibly for life, after infection with T. pallidum. False positive FTA tests may occur in 1) patients with underlying autoimmune disease, 2) the elderly, 3) , and 4) in the presence of abnormal serum globulins. Performed By: #### D RUGU #### [place] [address] CTPCRon 05-13-2023 C. trachomatis Interp Normal See CT Interp N [facility] ([place]) Comment on above: Result Comment: C. t rachomatis DNA not detected. Specimen is presumptive negative for C. trachomatis. A negative result does not preclude C. trachomatis infection because results depend on adequate specimen collection, absence of inhibitors, and sufficient DNA to be detected. See CT Interp N Performed By: #### C VFLURV #### [place] [address] C.trachomatis PCR Negative Normal Negative [facility] ([place]) Comment on above: Result Comment: Steven cular (PCR) assay performed on the [employer] Hugh 4800 system. Performed By: #### C VFLURV #### [place] [address] [place] [facility] Urine Normal [facility] ([place]) Comment on above: Performed By: #### C VFLURV #### [place] [address] [id number] 05-13-2023 GC PCR Source Urine Normal [facility] ([place]) Comment on above: Performed By: #### C VFLURV #### [place] [address] N. gonorrhoeae (PCR) Negative Normal Negative [facility] ([place]) Comment on above: Result Comment: Mole cular (PCR) assay performed on the [employer]00 System. Performed By: #### C VFLURV #### [place] [address] N. gonorrhoeae Interp Normal See NG Interp N [facility] ([place]) Comment on above: Result Comment: N. g onorrhoeae DNA not detected. Specimen is presumptive negative for N. gonorrhoeae. A negative result does not preclude Neisseria gonorrhoeae infection because results depend on adequate specimen collection, absence of inhibitors, and sufficient DNA to be detected. See NG Interp N Performed By: #### C VFLURV #### [place] [address] HSVVZVon 05-12-2023 HSV Type 1, HDA Not detected Normal Not Detected [facility] ([place]) Comment on above: Result Comment: Perf ormed By: [place] [address] Dupligraph Operator: Teja Main III, M.D. CLIA#: [id number] Performed By: #### C VFLURV #### [place] [address] HSV Type 2, HDA Not detected Normal Not Detected [facility] ([place]) Comment on above: Result Comment: Perf ormed By: [place] [address] [employer]pl[employer] Operator: Teja Main III, M.D. CLIA#: [id number] Performed By: #### C VFLURV #### [place] [address] V Zoster Virus, HDA Not detected Normal Not Detected [facility] ([place]) Comment on above: Result Comment: SOUR CE: PENIS Performed By: [place] [address] Dupligraph Operator: Teja Main III, M.D. CLIA#: [id number] Performed By: #### C VFLURV #### [place] [address] RPRon 05-12-2023 Reagin Ab RPR Ql (S) Reactive Abnormal Non-Genna cti ve [facility] ([place]) Comment on above: Result Comment: The RPR test is a non-treponemal assay useful as an aid in the diagnosis of primary and secondary syphilis. It converts to positive generally within 2 weeks after the appearance of a lesion. This test is also useful for monitoring response to antibiotic therapy. A positive RPR screening test will be followed by the FTA ABS test. False positive RPR tests may occur in 1) patients with underlying autoimmune disorders, 2) elderly patients, 3) , and 4) other conditions with abnormal serum globulins. Performed By: #### D RUGU #### [place] [address] RPRTon 05-12-2023 RPR Titer Reactive 8 Abnormal Non-Reacti ve [facility] ([place] Comment on above: Result Comment: The RPR test is a non-treponemal assay useful as an aid in the diagnosis of primary and secondary syphilis. It converts to positive generally within 2 weeks after the appearance of a lesion. This test is also useful for monitoring response to antibiotic therapy. A positive RPR screening test will be followed by the FTA ABS test. False positive RPR tests may occur in 1) patients with underlying autoimmune disorders, 2) elderly patients, 3) , and 4) other conditions with abnormal serum globulins. Performed By: #### Zamzam SHEIKHU #### [place] [address] HSVVZVon 05-11-2023 Specimen Source, HSV 1,2/VZV Amp PENIS Normal [facility] ([place]) Comment on above: Performed By: #### C VFLURV #### [place] [address] LABORATORYOrdered By: GALLO TORRE on 05-11-2023 Specimen Source, HSV 1,2/VZV Amp PENIS (05/11/23 6:30 AM) Invalid Interpretation Code AH Sendouts SS .Auto Diffon 02-21-2023 Basophil, Absolute 0.1 10 3/mcL Normal 0.0-0.3 [facility] ([place] Comment on above: Performed By: #### D RUGU #### [place] [address] Basophils/100 WBC (Bld) 0.7 % Normal 0.0-2.5 [facility] ([place] Comment on above: Performed By: #### D AGUILARU #### [place] [address] Eosinophil, Absolute 0.2 10 3/mcL Normal 0.0-0.7 [facility] [place] Comment [place] above: Performed By: #### Zamzam SHEIKHU #### [address] [address] Eosinophils/100 WBC (Bld) 2.4 % Normal 0.0-6.0 [facility] ([place] Comment on above: Performed By: #### D AGUILARU #### [address] [address] Lymphocyte, Absolute 1.8 10 3/mcL Normal 0.9-4.3 [facility] [place] Comment [place] above: Performed By: #### Zamzam SHEIKHU #### [address] [address] Lymphocytes/100 WBC (Bld) 18.9 % Low 20.0-40.0 [facility] ([place]) Comment on above: Performed By: #### D AGUILARU #### [address] [address] Monocyte, Absolute 0.9 10 3/mcL Normal 0.1-1.4 [facility] ([place] Comment on above: Performed By: #### Zamzam MOLINA #### [address] [address] Monocytes/100 WBC (Bld) 9.5 % Normal 2.0-13.0 [facility] ([place]) Comment on above: Performed By: #### Zamzam MOLINA #### [address] [address] Neutrophils/100 WBC (Bld) 68.5 % Normal 50.0-75.0 [facility] ([place] Comment on above: Performed By: #### Zamzam MOLINA #### [address] [address] .GFRon 02-21-2023 GFR Non- >60 Normal [facility] ([place]) Comment on above: Result Comment: GFR Population mean for , Non- Americans Ages 20-29 = 116 mL/min/1.73 sq.m. Ages 30-39 = 107 mL/min/1.73 sq.m. Ages 40-49 = 99 mL/min/1.73 sq.m. Ages 50-59 = 93 mL/min/1.73 sq.m. Ages 60-69 = 85 mL/min/1.73 sq.m. Ages 70+ = 75 mL/min/1.73 sq.m. Chronic Kidney Disease: Less than 60 mL/min/1.73 square meters End Stage Renal Disease: Less than 15 mL/min/1.73 square meters Performed By: #### D JESSE #### [address] [address] GFR >60 Normal [facility] ([place] Comment on above: Result Comment: GFR Population mean for , Non- Americans Ages 20-29 = 116 mL/min/1.73 sq.m. Ages 30-39 = 107 mL/min/1.73 sq.m. Ages 40-49 = 99 mL/min/1.73 sq.m. Ages 50-59 = 93 mL/min/1.73 sq.m. Ages 60-69 = 85 mL/min/1.73 sq.m. Ages 70+ = 75 mL/min/1.73 sq.m. Chronic Kidney Disease: Less than 60 mL/min/1.73 square meters End Stage Renal Disease: Less than 15 mL/min/1.73 square meters Performed By: #### Zamzam MOLINA #### [place] [address] .MDWon 02-21-2023 Monocyte Distribution Width 16.44 Normal 0.00-20.00 [facility] ([place] Comment on above: Result Comment: For ED adult patients suspected of sepsis, MDW<=20.0 does not rule out sepsis or risk of sepsis Performed By: #### Zamzam MOLINA #### [place] [address] .NEUABSon 02-21-2023 Neutrophil, Absolute 6.6 10 3/mcL Normal 2.3-8.1 [facility] [place] Comment [place]: Performed By: #### Zamzam MOLINA #### [address] [address] CBCon 02-21-2023 Erythrocyte distribution width (RBC) [Ratio] 15.4 % Normal 11.5-15.5 [facility] ([place] Comment on above: Performed By: #### Zamzam MOLINA #### [place] [id number] Hematocrit (Bld) [Volume fraction] 40.5 % Normal 40.0-52.0 [facility] ([place] Comment on above: Performed By: #### Zamzam MOLINA #### [place] [id number] Hgb 13.7 G/dL Normal 13.0-17.5 [facility] ([place] Comment on above: Performed By: #### Zamzam MOLINA #### [place] [id number] MCH (RBC) [Entitic mass] 31.1 pg Normal 27.0-33.0 [facility] ([place] Comment on above: Performed By: #### Zamzam MOLINA #### [place] [address] MCHC 33.8 G/dL Normal 32.0-36.0 [facility] ([place] Comment on above: Performed By: #### Zamzam MOLINA #### [place] [address] MCV (RBC) [Entitic vol] 92.0 fL Normal 81.0-100.0 [facility] ([place] Comment on above: Performed By: #### Zamzam MOLINA #### [place] [address] Platelet 215 10 3/mcL Normal 150-450 [facility] ([place] Comment on above: Performed By: #### Zamzam MOLINA #### [place] [id number] Platelet mean volume (Bld) [Entitic vol] 8.6 fL Normal 6.4-10.5 [facility] ([place] Comment on above: Performed By: #### Zamzam MOLINA #### [place] [id number] RBC 4.41 10 6/mcL Low 4.50-6.00 [facility] ([place] Comment on above: Performed By: #### Zamzam MOLINA #### [place] [id number] WBC 9.7 10 3/mcL Normal 4.5-10.8 [facility] ([place] Comment on above: Performed By: #### Zamzam MOLINA #### [address] [address] CMPon 02-21-2023 Albumin Level 4.2 G/dL Normal 3.2-4.8 [facility] ([place] Comment on above: Performed By: #### Zamzam MOLINA #### [address] [address] Albumin/Globulin [Mass ratio] 1.5 {ratio} Normal 0.9-1.6 [facility] ([place] Comment on above: Performed By: #### Zamzam MOLINA #### [address] [address] ALP [Catalytic activity/Vol] 70 U/L Normal 38-126 [facility] ([place] Comment on above: Performed By: #### Zamzam MOLINA #### [place] [id number] ALT/SGPT <7 Low 12-55 [facility] ([place] Comment on above: Performed By: #### Zamzam MLOINA #### [address] [address] AST [Catalytic activity/Vol] 14 U/L Normal 8-34 [facility] ([place] Comment on above: Performed By: #### Zamzam MOLINA #### [address] [address] Bili Total 0.70 mg/dL Normal 0.20-1.20 [facility] ([place] Comment on above: Result Comment: Use of this assay is not recommended for patients undergoing treatment with eltrombopag due to the potential for falsely elevated results. Performed By: #### Zamzam SHEIKHU #### [place] [id number] BUN/Creatinine Ratio 9.9 ratio Low 10.0-22.0 [facility] ([place] Comment on above: Performed By: #### Zamzam MOLINA #### [address] [address] Calcium [Mass/Vol] 9.3 mg/dL Normal 8.7-10.4 [facility] ([place] Comment on above: Performed By: #### Zamzam RUGU #### [address] [address] Chloride [Moles/Vol] 105 mmol/L Normal 98-110 [facility] ([place] Comment on above: Performed By: #### Zamzam SHEIKHU #### [address] [address] CO2 [Moles/Vol] 29 mmol/L Normal 22-32 [facility] ([place] Comment on above: Performed By: #### Zamzam SHEIKHU #### [address] [address] Creatinine [Mass/Vol] 0.81 mg/dL Normal 0.60-1.40 [facility] ([place] Comment on above: Performed By: #### Zamzam MOLINA #### [address] [address] Electrolyte Balance 3.0 mEq/L Low 4.0-15.0 [facility] ([place]) Comment on above: Performed By: #### Zamzam MOLINA #### [address] [address] Globulin 2.8 G/dL Normal 1.5-3.8 [facility] ([place] Comment on above: Performed By: #### Zamzam MOLINA #### [address] [address] Glucose [Mass/Vol] 76 mg/dL Normal 70-110 [facility] ([place] Comment on above: Performed By: #### Zamzam MOLINA #### [address] [address] Potassium [Moles/Vol] 3.4 mmol/L Low 3.5-5.0 [facility] ([place] Comment on above: Performed By: #### Zamzam SHEIKHU #### [address] [address] Sodium [Moles/Vol] 137 mmol/L Normal 136-145 [facility] ([place] Comment on above: Performed By: #### Zamzam SHEIKHU #### [address] [address] Total Protein 7.0 G/dL Normal 5.7-8.2 [facility] ([place] Comment on above: Result Comment: No te - New Reference Range in effect 20 Performed By: #### D RUGU #### [place] [address] Urea nitrogen [Mass/Vol] 8.0 mg/dL Normal 8.0-22.0 [facility] ([place] Comment on above: Performed By: #### D RUGU #### [place] [address] CVFLURVon 02-21-2023 FLU A PCR Negative Normal Negative [facility] ([place] Comment on above: Performed By: #### C VFLURV #### [place] [address] FLU B PCR Negative Normal Negative [facility] ([place] Comment on above: Performed By: #### C VFLURV #### [place] [address] RSV PCR Negative Normal Negative [facility] ([place] Comment on above: Performed By: #### C VFLURV #### [place] [address] SARS-CoV-2 (COVID-19) RNA LAN+probe Ql (Unsp spec) Negative Normal Negative [facility] ([place] Comment on above: Result Comment: This test has been authorized by FDA under an EUA for use by authorized laboratories and has not been FDA cleared or approved. Results from the Xpert Xpress SARS-CoV-2/Flu/RSV or Xpert Xpress SARS-CoV-2 only test should be correlated with the clinical history, epidemiological data, and other data available to the clinician evaluating the patient. Performance of the Xpert Xpress SARS-CoV-2/Flu/RSV or Xpert Xpress SARS-CoV-2 only test has only been established in nasopharyngeal swab specimens. Erroneous test results might occur from improper specimen collection; failure to follow the recommended sample collection, handling, and storage procedures; technical error; or sample mix-up.False negative results may occur if virus is present at levels below the analytical limit of detection. Viral nucleic acid may persist in vivo, independent of virus viability. Detection of analyte target(s) does not imply that the corresponding virus(es) are infectious or are the causative agents for clinical symptoms.Recent patient exposure to FluMist or other live attenuated influenza vaccines may cause inaccurate positive results. Performed By: #### C VFLURV #### [place] [address] DRUGSon 02-21-2023 Acetaminophen [Mass/Vol] ug/mL Low 10.0-20.0 [facility] ([place] Comment on above: Performed By: #### D AGUILARU #### [place] [address] Ethanol Level <10.0 Normal [facility] ([place]) Comment on above: Performed By: #### D AGUILARU #### [place] [address] Salicylate Lvl (ds) <3.0 Low 10.0-25.0 [facility] ([place] Comment on above: Performed By: #### Zamzam SHEIKHU #### [place] [address] Serum Drugs screened: See Below Normal [facility] ([place] Comment on above: Result Comment: This drug screen is a presumptive screening only. No confirmation will be performed unless requested. Drugs included in the ER serum drug screen are: Threshold Ethanol 10.0 mg/dL Salicylate 2.0 mg/dl Acetaminophen 2.0 mcg/mL Testing has been performed FOR MEDICAL PURPOSES ONLY. Performed By: #### Zamzam RUGU #### [place] [address] DRUGUon 02-21-2023 Amphetamine (u) Positive Abnormal Negative [facility] ([place]) Comment on above: Performed By: #### Zamzam MOLINA #### [place] [id number] Barbiturate (u) Negative Normal Negative [facility] ([place] Comment on above: Performed By: #### Zamzam SHEIKHU #### [place] [id number] Benzodiazepine (u) Negative Normal Negative [facility] ([place] Comment on above: Performed By: #### Zamzam RUGU #### [address] [address] Cannabinoid (u) Positive Abnormal Negative [facility] ([place] Comment on above: Performed By: #### Zamzam RUGU #### [address] [address] Cocaine Ql (U) Negative Normal Negative [facility] ([place] Comment on above: Performed By: #### Zamzam RUGU #### [place] [id number] Fentanyl (u) Negative Normal Negative [facility] ([place] Comment on above: Result Comment: Test ing has been performed FOR MEDICAL PURPOSES ONLY. Performed By: #### Zamzam RUGU #### [place] [id number] Methadone Ql (U) Negative Normal Negative [facility] ([place] Comment on above: Performed By: #### Zamzam RUGU #### [place] [id number] Opiate (u) Negative Normal Negative [facility] ([place] Comment on above: Performed By: #### Zamzam RUGU #### [place] [address] Oxycodone (u) Negative Normal Negative [facility] ([place] Comment on above: Result Comment: Test ing has been performed FOR MEDICAL PURPOSES ONLY. Performed By: #### Zamzam RUGU #### [place] [id number] PCP (u) Negative Normal Negative [facility] ([place] Comment on above: Performed By: #### Zamzam RUGU #### [address] [address] Propoxyphene (u) Negative Normal Negative [facility] ([place] Comment on above: Performed By: #### Zamzam RUGU #### [address] [address] U pH Drug Scrn 6.0 Normal 5.0-8.0 [facility] ([place] Comment on above: Performed By: #### Zamzam RUGU #### [place] [id number] Urine Drugs screened: See Below Normal [facility] ([place] Comment on above: Result Comment: This drug screen is a presumptive screening only. No confirmation will be performed unless requested. Drugs screened include: Threshold Amphetamines/Methamphetamines 1,000 ng/mL Barbiturates 200 ng/mL Benzodiazepine metabolites 200 ng/mL Cannabinoids (THC metabolites) 50 ng/mL Benzoylecognine (Cocaine metab) 300 ng/mL Opiates 300 ng/mL Phencyclidine (PCP) 25 ng/mL Methadone 300 ng/mL Propoxyphene 300 ng/mL Fentanyl 1.0 ng/mL Oxycodone 100 ng/mL Testing has been performed FOR MEDICAL PURPOSES ONLY. Performed By: #### D JESSE #### [facility] [address] [place] [address] EMERGENCY DEPARTMENT REPORTo n 02-21-2023 [place] [address] HEALTH INFORMATION MANAGEMENT EMERGENCY DEPARTMENT REPORT Patient: JAKI KELSEY THEODORE M.D. [id number] M Status: DEP ER ED Date of Service: 02/20/23 IDENTIFICATION: A 37-year-old male. CHIEF COMPLAINT: Altered mental status and ingestion of methamphetamine. HISTORY OF PRESENT ILLNESS: The patient presents with altered mental status, lethargic, is able to be awakened somewhat, and states he used methamphetamine yesterday, that he snorted it. FAMILY AND SOCIAL HISTORY: He admits to methamphetamine use. REVIEW OF SYSTEMS: Unobtainable. PHYSICAL EXAMINATION: GENERAL: Finds a 37-year-old male. He is lethargic and sleeping but does awaken. HEENT: His pupils are slightly constricted but react. Extraocular muscles are intact. There is no facial asymmetry. NECK: There is no JVD in the neck. No bruits are heard. HEART: Regular rate and rhythm without murmurs or gallops. CHEST: Symmetric. LUNGS: Clear. There is no respiratory distress. ABDOMEN: Soft and nontender. Bowel sounds are present. No mass or hernia. EXTREMITIES: Normal. NEUROLOGIC: Again, the patient is lethargic but is able to be awakened. He is able to respond verbally, although he is slow to respond verbally. He is somewhat confused. He knew he was in the hospital but did not know which one. He thought the day of the week was Sunday, but it is actually Sunday. When asked who the president was, could not understand his response. He seems to be moving all his extremities. He does not seem to have any focal neurological deficits. SKIN: He is not diaphoretic. CLINICAL IMPRESSION: 1. Altered mental status. 2. Drug ingestion/methamphetamine. PLAN: The patient will have routine lab work; will be given a liter of fluid; will have a CT of the head to rule out intracranial bleed or stroke; will have electrolytes to rule out any electrolyte imbalance, including blood sugar; and will be observed in the ER and reassessed. EMERGENCY DEPARTMENT COURSE This patient has been observed in the emergency room for over 6 hours. His labs were reviewed. All essentially within normal limits. Alcohol level was 0. He has been unable to give us a urine and check for urine drug screen, but he admitted to snorting meth yesterday. He remains sleepy, but easily awakens. He is verbalizing, moving all extremities. Having been observed in the emergency room for over 6 hours, the patient will be discharged. He will be given information regarding outpatient drug counseling and rehabilitation services. JOB#[id number] Report#: Dict ID [id number] / Int ID [id number] 03/07/232119 KALEY PIERRE M.D. cc: No Physician; KALEY PIERRE M.D. << Signature on File>> Reported By: KALEY PIERRE M.D. Signed By: KALEY PIERRE M.D. Tests performed at: [address] [address] Normal [facility] LABORATORYOrdered By: Mihaela Borden on 02-21-2023 Acetaminophen [Mass/Vol] mcg/mL Invalid Interpretation Code 10.0 - 20.0 mcg/mL AH ADM SS Amphetamines Screen Ql (U) Positive *ABN* (02/21/23 12:43 AM) Invalid Interpretation Code Negative AH ADM SS Barbiturates Screen Ql (U) Negative *NA* (02/21/23 12:43 AM) Invalid Interpretation Code Negative ADM SS Benzodiazepines Ql (U) Negative *NA* (02/21/23 12:43 AM) Invalid Interpretation Code Negative AH ADM SS Benzoylecgonine Screen Ql (U) Negative *NA* (02/21/23 12:43 AM) Invalid Interpretation Code Negative AH ADM SS Cannabinoids Screen Ql (U) Positive *ABN* (02/21/23 12:43 AM) Invalid Interpretation Code Negative AH ADM SS Ethanol [Mass/Vol] mg/dL Invalid Interpretation Code AH ADM SS fentaNYL Screen Ql (U) Negative *NA* (02/21/23 12:43 AM) Invalid Interpretation Code Negative AH ADM SS Methadone Screen Ql (U) Negative *NA* (02/21/23 12:43 AM) Invalid Interpretation Code Negative ADM SS Opiates Screen Ql (U) Negative *NA* (02/21/23 12:43 AM) Invalid Interpretation Code Negative ADM SS oxyCODONE Ql (U) Negative *NA* (02/21/23 12:43 AM) Invalid Interpretation Code Negative ADM SS pH (U) 6.0 [pH] Invalid Interpretation Code 5.0 - 8.0 Chemistry S Phencyclidine Ql (U) Negative *NA* (02/21/23 12:43 AM) Invalid Interpretation Code Negative ADM SS Propoxyphene Screen Ql (U) Negative *NA* (02/21/23 12:43 AM) Invalid Interpretation Code Negative ADM SS Salicylates [Mass/Vol] mg/dL Invalid Interpretation Code 10.0 - 25.0 mg/dL ADM SS Serum Drugs screened: See Below (02/21/23 12:43 AM) Invalid Interpretation Code Chemistry S Urine Drugs screened: See Below (02/21/23 12:43 AM) Invalid Interpretation Code Chemistry S LABORATORYOrdered By: SYSTEM SYSTEM on 02-21-2023 Albumin BCP dye [Mass/Vol] 4.2 G/dL Invalid Interpretation Code 3.2 - 4.8 G/dL AH ADM SS Albumin/Globulin [Mass ratio] 1.5 {ratio} Invalid Interpretation Code 0.9 - 1.6 ratio AH ADM SS ALP [Catalytic activity/Vol] 70 U/L Invalid Interpretation Code 38 - 126 U/L AH ADM SS ALT No additional P-5'-P [Catalytic activity/Vol] U/L 1 Invalid Interpretation Code 12 - 55 U/L ADM SS AST [Catalytic activity/Vol] 14 U/L Invalid Interpretation Code 8 - 34 U/L ADM SS Basophils (Bld) [#/Vol] 0.1 103/mcL Invalid Interpretation Code 0.0 - 0.3 10^3/mcL AH Workflow SS Basophils/100 WBC (Bld) 0.7 % Invalid Interpretation Code 0.0 - 2.5 % AH Workflow SS Bilirubin [Mass/Vol] 0.70 mg/dL Invalid Interpretation Code 0.20 - 1.20 mg/dL ADM SS Calcium [Mass/Vol] 9.3 mg/dL Invalid Interpretation Code 8.7 - 10.4 mg/dL ADM SS Chloride [Moles/Vol] 105 mmol/L Invalid Interpretation Code 98 - 110 mEq/L ADM SS CO2 [Moles/Vol] 29 mmol/L Invalid Interpretation Code 22 - 32 mEq/L ADM SS Creatinine [Mass/Vol] 0.81 mg/dL Invalid Interpretation Code 0.60 - 1.40 mg/dL ADM SS Electrolyte Balance 3.0 mEq/L Invalid Interpretation Code 4.0 - 15.0 mEq/L ADM SS Eosinophils (Bld) [#/Vol] 0.2 103/mcL Invalid Interpretation Code 0.0 - 0.7 10^3/mcL AH Workflow SS Eosinophils/100 WBC (Bld) 2.4 % Invalid Interpretation Code 0.0 - 6.0 % Workflow SS Erythrocyte distribution width (RBC) [Ratio] 15.4 % Invalid Interpretation Code 11.5 - 15.5 % Workflow SS GFR/1.73 sq M.predicted among blacks MDRD (S/P/Bld) [Vol rate/Area] ml/min/1.73sqm Invalid Interpretation Code ADM SS GFR/1.73 sq M.predicted among non-blacks MDRD (S/P/Bld) [Vol rate/Area] ml/min/1.73sqm Invalid Interpretation Code ADM SS Globulin 2.8 G/dL Invalid Interpretation Code 1.5 - 3.8 G/dL ADM SS Glucose [Mass/Vol] 76 mg/dL Invalid Interpretation Code 70 - 110 mg/dL ADM SS Hematocrit (Bld) [Volume fraction] 40.5 % Invalid Interpretation Code 40.0 - 52.0 % AH Workflow SS Hemoglobin (Bld) [Mass/Vol] 13.7 G/dL Invalid Interpretation Code 13.0 - 17.5 G/dL AH Workflow SS Lymphocytes (Bld) [#/Vol] 1.8 103/mcL Invalid Interpretation Code 0.9 - 4.3 10^3/mcL AH Workflow SS Lymphocytes/100 WBC (Bld) 18.9 % Invalid Interpretation Code 20.0 - 40.0 % AH Workflow SS MCH (RBC) [Entitic mass] 31.1 pg Invalid Interpretation Code 27.0 - 33.0 pg AH Workflow SS MCHC 33.8 G/dL Invalid Interpretation Code 32.0 - 36.0 G/dL AH Workflow SS MCV (RBC) [Entitic vol] 92.0 fL Invalid Interpretation Code 81.0 - 100.0 fL AH Workflow SS Monocyte distribution width Auto (Bld) [Entitic vol] 16.44 Invalid Interpretation Code 0.00 - 20.00 AH Workflow SS Comment on above: Result Comment: For ED adult patients suspected of sepsis, MDW<=20.0 does not rule out sepsis or risk of sepsis Monocytes (Bld) [#/Vol] 0.9 103/mcL Invalid Interpretation Code 0.1 - 1.4 10^3/mcL AH Workflow SS Monocytes/100 WBC (Bld) 9.5 % Invalid Interpretation Code 2.0 - 13.0 % AH Workflow SS Neutrophils (Bld) [#/Vol] 6.6 103/mcL Invalid Interpretation Code 2.3 - 8.1 10^3/mcL AH Workflow SS Neutrophils/100 WBC (Bld) 68.5 % Invalid Interpretation Code 50.0 - 75.0 % AH Workflow SS Platelet mean volume (Bld) [Entitic vol] 8.6 fL Invalid Interpretation Code 6.4 - 10.5 fL AH Workflow SS Platelets (Bld) [#/Vol] 215 103/mcL Invalid Interpretation Code 150 - 450 10^3/mcL AH Workflow SS Potassium [Moles/Vol] 3.4 mmol/L Invalid Interpretation Code 3.5 - 5.0 mEq/L AH ADM SS Protein [Mass/Vol] 7.0 G/dL Invalid Interpretation Code 5.7 - 8.2 G/dL AH ADM SS RBC (Bld) [#/Vol] 4.41 106/mcL Invalid Interpretation Code 4.50 - 6.00 10^6/mcL AH Workflow SS Sodium [Moles/Vol] 137 mmol/L Invalid Interpretation Code 136 - 145 mEq/L AH ADM SS Urea nitrogen [Mass/Vol] 8.0 mg/dL Invalid Interpretation Code 8.0 - 22.0 mg/dL AH ADM SS Urea nitrogen/Creatinine [Mass ratio] 9.9 ratio Invalid Interpretation Code 10.0 - 22.0 ratio AH ADM SS WBC (Bld) [#/Vol] 9.7 103/mcL Invalid Interpretation Code 4.5 - 10.8 10^3/mcL AH Workflow SS LABORATORYOrdered By: So Cano on 02-21-2023 FLUAV RNA LAN+probe Ql (Resp) Negative (02/21/23 12:43 AM) Invalid Interpretation Code Negative AH Auto Viro/Sero SS FLUBV RNA LAN+probe Ql (Resp) Negative (02/21/23 12:43 AM) Invalid Interpretation Code Negative Auto Viro/Sero SS RSV PCR Negative (02/21/23 12:43 AM) Invalid Interpretation Code Negative Auto Viro/Sero SS SARS-CoV-2 (COVID-19) RNA LAN+probe Ql (Resp) Negative (02/21/23 12:43 AM) Invalid Interpretation Code Negative Auto Viro/Sero SS ALCOHOLon 02-20-2023 Ethanol [Mass/Vol] mg/dL Normal 0-0.01 [facility] Comment on above: Performed By: #### L 304.0140, L100.0010, L100.0030 #### [facility] [address] [place] [address] 12707 BMPon 02-20-2023 Anion gap [Moles/Vol] 18.9 mmol/L Normal 15-22 [facility] Comment on above: Performed By: #### L 301.0080, L100.0010 #### [facility] [address] [place] [address] Calcium [Mass/Vol] 9.2 mg/dL Normal 8.6-10.0 [facility] Comment on above: Performed By: #### L 301.0080, L100.0010 #### [facility] [address] [place] [address] 40709 Chloride [Moles/Vol] 98 mmol/L Normal 98-107 [facility] Comment on above: Performed By: #### L 301.0080, L100.0010 #### ML - LABORATORY [address] [place] [address] 23951 CO2 [Moles/Vol] 24 mmol/L Normal 22-29 [facility] Comment on above: Performed By: #### L 301.0080, L100.0010 #### ML - LABORATORY [address] [place] [address] 60214 Creatinine [Mass/Vol] 0.89 mg/dL Normal 0.70-1.20 [facility] Comment on above: Performed By: #### L 301.0080, L100.0010 #### - LABORATORY [address] [place] [address] 36673 eGFR if AFR JULIUS > 60 ml/min/1.73m2 Normal [facility] Comment on above: Result Comment: eGFR >= 60 Indicates normal kidney function. * eGFR IS AN ESTIMATE * (AFR JULIUS = ) (non-AFR AM = NON-) MDRD calculation used in the eGFR should not be used to dose medications. For further limitations of the eGFR please refer to the Physician Website or the National Kidney Disease Education Program website (www.nkdep.nih.gov). Performed By: #### L 301.0080, L100.0010 #### [facility] - LABORATORY [address] [place] [address] 31928 eGFR nonAFR Julius > 60 ml/Min/1.73m2 Normal [facility] Comment on above: Performed By: #### L 301.0080, L100.0010 #### [facility] - LABORATORY [address] [place] [address] 46094 Glucose [Mass/Vol] 101 mg/dL Normal 74-106 [facility] Comment on above: Performed By: #### L 301.0080, L100.0010 #### ML - LABORATORY [address] [place] [address] 49372 Potassium [Moles/Vol] 3.9 mmol/L Normal 3.5-5.0 [facility] Comment on above: Performed By: #### L 301.0080, L100.0010 #### [facility] - [facility]AT[facility] [address] [place] [address] 13768 Sodium [Moles/Vol] 137 mmol/L Normal 135-145 [facility] Comment on above: Performed By: #### L 301.0080, L100.0010 #### ML - LABORATORY [address] [place] [address] 19058 Urea nitrogen [Mass/Vol] 13 mg/dL Normal 6-20 [facility] Comment on above: Performed By: #### L 301.0080, L100.0010 #### [facility] [address] [place] [address] 52657 CBCon 02-20-2023 BASO# 0.10 x10(3) Normal 0.00-0.10 [facility] Comment on above: Performed By: #### L 304.0140, L100.0010, L100.0030 #### - LABORATORY [address] [place] [address] 78754 Basophils/100 WBC (Bld) 0.5 % Normal 0.0-1.0 [facility] Comment on above: Performed By: #### L 304.0140, L100.0010, L100.0030 #### - LABORATORY [address] [place] [address] 75298 EOS# 0.10 x10(3) Normal 0.00-0.54 [facility] Comment on above: Performed By: #### L 304.0140, L100.0010, L100.0030 #### - LABORATORY [address] [place] [address] 60299 Eosinophils/100 WBC (Bld) 1.2 % Normal 0.5-4.9 [facility] Comment on above: Performed By: #### L 304.0140, L100.0010, L100.0030 #### ML - LABORATORY [address] [place] [address] 03213 Erythrocyte distribution width (RBC) [Ratio] 15.5 % High 12.7-15.3 [facility] Comment on above: Performed By: #### L 304.0140, L100.0010, L100.0030 #### - LABORATORY [address] [place] [address] 37201 Hematocrit (Bld) [Volume fraction] 41.0 % Low 42.0-51.0 [facility] Comment on above: Performed By: #### L 304.0140, L100.0010, L100.0030 #### - LABORATORY [address] [place] [address] 61230 Hemoglobin (Bld) [Mass/Vol] 13.6 g/dL Low 14.0-17.2 [facility] Comment on above: Performed By: #### L 304.0140, L100.0010, L100.0030 #### - LABORATORY [address] [place] [address] 85345 LYMPH# 1.50 x10(3) Normal 1.00-3.50 [facility] Comment on above: Performed By: #### L 304.0140, L100.0010, L100.0030 #### [facility] [address] [place] [address] 35437 Lymphocytes/100 WBC (Bld) 12.8 % Low 16.0-48.0 [facility] Comment on above: Performed By: #### L 304.0140, L100.0010, L100.0030 #### - LABORATORY [address] [place] [address] 02009 MCH (RBC) [Entitic mass] 30.3 pg Normal 28.8-32.2 [facility] Comment on above: Performed By: #### L 304.0140, L100.0010, L100.0030 #### [facility] [address] [place] [address] 58901 MCHC (RBC) [Mass/Vol] 33.1 g/dL Normal 33.0-36.0 [facility] Comment on above: Performed By: #### L 304.0140, L100.0010, L100.0030 #### - LABORATORY [address] [place] [address] 67361 MCV (RBC) [Entitic vol] 91.5 fL Normal 80.0-94.0 [facility] Comment on above: Performed By: #### L 304.0140, L100.0010, L100.0030 #### - LABORATORY [address] [place] [address] 34344 MONO# 0.90 x10(3) High 0.30-0.80 [facility] Comment on above: Performed By: #### L 304.0140, L100.0010, L100.0030 #### [facility] [address] [place] [address] 46178 Monocytes/100 WBC (Bld) 7.9 % Normal 4.3-11.2 [facility] Comment on above: Performed By: #### L 304.0140, L100.0010, L100.0030 #### - LABORATORY [address] [place] [address] 68112 NEUT# 9.10 x10(3) High 1.40-6.50 [facility] Comment on above: Performed By: #### L 304.0140, L100.0010, L100.0030 #### [facility] [address] [place] [address] 01619 Neutrophils/100 WBC (Bld) 77.6 % High 45.0-73.0 [facility] Comment on above: Performed By: #### L 304.0140, L100.0010, L100.0030 #### - LABORATORY [address] [place] [address] 48689 Platelet mean volume (Bld) [Entitic vol] 9.0 fL Normal 7.4-9.2 [facility] Comment on above: Performed By: #### L 304.0140, L100.0010, L100.0030 #### - LABORATORY [address] [place] [address] 59694 PLT 234 X10(3) Normal 150-450 [facility] Comment on above: Performed By: #### L 304.0140, L100.0010, L100.0030 #### [facility] - LAB[facility]ATORY [address] [place] [address] 95220 RBC 4.48 x10(6) Low 4.80-5.50 [facility] Comment on above: Performed By: #### L 304.0140, L100.0010, L100.0030 #### [facility] - [facility] [address] [place] [address] 83496 WBC 11.7 x10(3) High 4.5-10.0 [facility] Comment on above: Performed By: #### L 304.0140, L100.0010, L100.0030 #### [facility] - [facility]ATORY [address] [place] [address] BRAIN WITHOUT CONTRAST- C TBon 02-20-2023 CT BRAIN WITHOUT CONTRAST- CTB [address] [address] Name: JAKI KELSEY Phys: KALEY PIERRE M.D. : [birth year] Age: 37 Sex: M Acct: [id number] Loc: ED Exam Date: 02/20/23 Status: [facility] Radiology No.: Unit Number: [id number] Exam # Type/Exam [id number] CT / CT BRAIN WITHOUT CONTRAST- CTB EXAMINATION: CT OF THE HEAD WITHOUT CONTRAST02/20/2023 3:[address] HEAD/BRAIN WITHOUT CONTRAST EXAM DESCRIPTION: TECHNIQUE: CT of the head was performed without the administration of intravenous contrast. Automated exposure control, iterative reconstruction, and/or weight based adjustment of the mA/kV was utilized to reduce the radiation dose to as low as reasonably achievable. COMPARISON: None available HISTORY: ORDERING SYSTEM PROVIDED HISTORY: TECHNOLOGIST PROVIDED HISTORY: Reason for Exam: HALLUCINATIONS FINDINGS: The size, density, and morphology of the brain and CSF containing spaces appears normal. There is no evidence of mass, midline shift, hemorrhage, or infract. The ventricles, cortical sulci, and subarachnoid cisterns appear unremarkable. There are no extra-axial fluid collections. No regions of pathologic attenuation are evident. Regions of the orbits and paranasal sinuses included within the field of view are unremarkable. There is no displaced fracture or osseous neoplasm. The extracalvarial soft tissues appear unremarkable. IMPRESSION: No acute intracranial pathology. COMMENT: Changes resultant from ischemia (even significant ischemia) may often be inapparent on CT exam, particularly if imaged early. Additionally, early changes due to neoplastic or inflammatory processes can be subtle to the extent that they are not prospectively noted. Therefore, if symptoms persist, or clinical suspicion for pathology remains, further evaluation may be obtained with MRI. RECOMMENDATIONS: Unavailable Electronically signed By Lyn Todd MD 02/20/2023 5:51:52 PM EST Workstation ID : [id number] < > Reported By: LYN TODD M.D. Signed In Fluency By: LYN TODD M.D. << Signature on File>> Reported By: LYN TODD M.D. Signed By: LYN TODD M.D. Tests performed at: [place] [address] Normal [facility] hsTROP Ton 02-20-2023 hsTROP T 6.33 ng/L Normal - [facility] Comment on above: Result Comment: When assessing risk for acute coronary syndromes: In patients undergoing blood draw greater than 2 hours from symptom onset, with history of very low to moderate risk and non-ischemic ECG, an initial hs-Troponin T less than 12 ng/L AND a 1 hour delta hs-Troponin T less than 3 ng/L should be considered very low risk for 30 day MACE. Performed By: #### L 301.0080 #### [facility] [address] [place] [address] hsTROP T <6.0 Low - [facility] Comment on above: Result Comment: When assessing risk for acute coronary syndromes: In patients undergoing blood draw greater than 2 hours from symptom onset, with history of very low to moderate risk and non-ischemic ECG, an initial hs-Troponin T less than 12 ng/L AND a 1 hour delta hs-Troponin T less than 3 ng/L should be considered very low risk for 30 day MACE. Performed By: #### L 301.0080, L100.0010 #### [facility] [address] [place] [address] [place], [place] [address] C. trachomatis+N. gonorrhoea e DNA LAN+probe Ql (U)on 11-18-2022 GC/Chlamydia Amplification XXX [facility] 11-18-2022 CNPN Telephone ([facility] LAUREJAKI Joiner ([id number]) 1985 M Date Time Provider Department 11/18/22 NEERU SMITH During your visit today, we recorded the following information about you: Debbie Olivia APRN.FITNESS AND WELLNESS INSTRUCTOR 11/18/2022 10:14 PM Signed Please notify the patient culture positive for gonorrhea, take medication as prescribed at time of visit. Negative for chlamydia Allergies As of Date: 11/18/2022 Noted Allergy Reaction DEPAKOTE (DIVALPROEX) 05/31/2020 16 - Unknown PENICILLINS 05/31/2020 16 - Unknown Date Reviewed: 11/17/2022 Reviewed by: Mickey Gambino LPN - Fully Assessed Reason for Visit: Results [95] Prescriptions as of 11/18/2022 - atomoxetine (STRATTERA) 40 mg capsule Take 40 mg by mouth twice daily. - busPIRone (BUSPAR) 5 mg tablet Take 5 mg by mouth twice daily. - lamoTRIgine (LAMICTAL) 25 mg tablet Take 75 mg by mouth daily at bedtime. - doxycycline hyclate (VIBRAMYCIN) 100 mg capsule Take 1 capsule by mouth twice daily for 14 days. - ARIPiprazole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 width (RBC) [Ratio] 13.7 % Normal 12.7-15.3 [facility] Comment on above: Performed By: #### L 200.0010 #### ML - LAB[facility]ATORY [address] [place] [address] 22768 Hematocrit (Bld) [Volume fraction] 47.0 % Normal 42.0-51.0 [facility] Comment on above: Performed By: #### L 200.0010 #### [facility] - [facility]AT[facility] [address] [place] [address] 05977 Hemoglobin (Bld) [Mass/Vol] 15.9 g/dL Normal 14.0-17.2 [facility] Comment on above: Performed By: #### L 200.0010 #### ML [facility] [address] [place] [address] 78233 LYMPH# 2.60 x10(3) Normal 1.00-3.50 [facility] Comment on above: Performed By: #### L 200.0010 #### ML [facility] [address] [place] [address] 33016 Lymphocytes/100 WBC (Bld) 22.6 % Normal 16.0-48.0 [facility] Comment on above: Performed By: #### L 200.0010 #### [facility] - [facility] [address] [place] [address] 28710 MCH (RBC) [Entitic mass] 31.1 pg Normal 28.8-32.2 [facility] Comment on above: Performed By: #### L 200.0010 #### ML [facility] [address] [place] [address] 63024 MCHC (RBC) [Mass/Vol] 33.9 g/dL Normal 33.0-36.0 [facility] Comment on above: Performed By: #### L 200.0010 #### ML [facility] [address] [place] [address] 59655 MCV (RBC) [Entitic vol] 91.9 fL Normal 80.0-94.0 [facility] Comment on above: Performed By: #### L 200.0010 #### [facility] - [facility] [address] [place] [address] 07894 MONO# 0.80 x10(3) Normal 0.30-0.80 [facility] Comment on above: Performed By: #### L 200.0010 #### ML - LAB[facility]AT[facility] [address] [place] [address] 01044 Monocytes/100 WBC (Bld) 6.7 % Normal 4.3-11.2 [facility] Comment on above: Performed By: #### L 200.0010 #### ML - [facility] [address] [place] [address] 69415 NEUT# 7.80 x10(3) High 1.40-6.50 [facility] Comment on above: Performed By: #### L 200.0010 #### [facility] - [facility] [address] [place] [address] 15580 Neutrophils/100 WBC (Bld) 67.5 % Normal 45.0-73.0 [facility] Comment on above: Performed By: #### L 200.0010 #### [facility] - [facility] [address] [place] [address] 37157 Platelet mean volume (Bld) [Entitic vol] 8.2 fL Normal 7.4-9.2 [facility] Comment on above: Performed By: #### L 200.0010 #### [facility] - [facility] [address] [place] [address] 59900 PLT 320 X10(3) Normal 150-450 [facility] Comment on above: Performed By: #### L 200.0010 #### [facility] - [facility] [address] [place] [address] 62554 RBC 5.12 x10(6) Normal 4.80-5.50 [facility] Comment on above: Performed By: #### L 200.0010 #### ML - [facility]AT[facility] [address] [place] [address] 77203 WBC 11.6 x10(3) High 4.5-10.0 [facility] Comment on above: Performed By: #### L 200.0010 #### [facility] [address] [place] [address] CBC W Auto Differential pane l (Bld)on 05-23-2022 BASO ABS 0.10 x10(3) 0.00 - 0.10 x10(3) [facility] Basophils/100 WBC (Bld) 0.9 % 0.0 - 1.0 % [facility] EOS ABS 0.30 x10(3) 0.00 - 0.54 x10(3) [facility] Eosinophils/100 WBC (Bld) 2.3 % 0.5 - 4.9 % [facility] Erythrocyte distribution width (RBC) [Ratio] 13.7 % 12.7 - 15.3 % [facility] Hematocrit (Bld) [Volume fraction] 47.0 % 42.0 - 51.0 % [facility] Hemoglobin (Bld) [Mass/Vol] 15.9 g/dL 14.0 - 17.2 g/dL [facility] LYMPH ABS 2.60 x10(3) 1.00 - 3.50 x10(3) [facility] Lymphocytes/100 WBC (Bld) 22.6 % 16.0 - 48.0 % [facility] MCH (RBC) [Entitic mass] 31.1 pg 28.8 - 32.2 pg [facility] MCHC (RBC) [Mass/Vol] 33.9 g/dL 33.0 - 36.0 g/dL [facility] MCV (RBC) [Entitic vol] 91.9 fL 80.0 - 94.0 fl [facility] MONO ABS 0.80 x10(3) 0.30 - 0.80 x10(3) [facility] Monocytes/100 WBC (Bld) 6.7 % 4.3 - 11.2 % [facility] Neutrophil Ab 7.80 x10(3) High 1.40 - 6.50 x10(3) [facility] Neutrophils/100 WBC (Bld) 67.5 % 45.0 - 73.0 % [facility] Platelet Count 320 X10(3) 150 - 450 X10(3) [facility] Platelet mean volume (Bld) [Entitic vol] 8.2 fL 7.4 - 9.2 fl [facility] RBC 5.12 x10(6) 4.80 - 5.50 x10(6) [facility] WBC 11.6 x10(3) High 4.5 - 10.0 x10(3) [facility] DRUG SCREENon 05-23-2022 AMPHETAMINE Positive Invalid Interpretation Code NEGATIVE [facility] Comment on above: Result Comment: THIS RESULT IS OBTAINED BY A SCREENING METHOD. IF CONFIRMATION IS DESIRED, PLEASE CONTACT THE LAB AT EXT.2293 WITHIN 7 DAYS AND ORDER A URINE CONFIRMATION TEST AN ADD-ON TEST. Performed By: #### L 100.0708 #### ML - LAB[facility]AT[facility] [address] [place] [address] 61329 BARBITUATES Negative Normal NEGATIVE [facility] Comment on above: Performed By: #### L 100.0708 #### ML - [facility] [address] [place] [address] 87271 BENZODIAZEPINE Negative Normal NEGATIVE [facility] Comment on above: Performed By: #### L 100.0708 #### ML - LABORATORY [address] [place], [place] [address] CANNABINOID Positive Invalid Interpretation Code NEGATIVE [facility] Comment on above: Result Comment: THIS RESULT IS OBTAINED BY A SCREENING METHOD. IF CONFIRMATION IS DESIRED, PLEASE CONTACT THE LAB AT EXT.2293 WITHIN 7 DAYS AND ORDER A URINE CONFIRMATION TEST AN ADD-ON TEST. Performed By: #### L 100.0708 #### [facility] - [facility] [address] [place] [address] 32959 Cocaine Ql (U) Negative Normal NEGATIVE [facility] Comment on above: Performed By: #### L 100.0708 #### [facility] - [facility] [address] [place] [address] 16365 Opiates Ql (U) Negative Normal NEGATIVE [facility] Comment on above: Performed By: #### L 100.0708 #### [facility] - [facility] [address] [place] [address] 28385 OXYCODONE Negative Normal NEGATIVE [facility] Comment on above: Performed By: #### L 100.0708 #### [facility] - [facility] [address] [place] [address] 82672 Phencyclidine Ql (U) Negative Normal NEGATIVE [facility] Comment on above: Result Comment: COMM ENT: SPECIMEN TYPE - URINE. Unconfirmed screening results for the Drug Screen Panel should not be used for non-medical purposes. CUTOFFS: Amphetamine cutoff concentration: 1000 ng/mL Cocaine cutoff concentration: 300 ng/mL Opiates cutoff concentration: 300 ng/mL Benzodiazepine cutoff concentration: 200 ng/mL Barbituate cutoff concentration: 200 ng/mL Cannabinoid cutoff concentration: 50 ng/mL Oxycodone cutoff concentration: 100 ng/mL Phencyclidine cutoff concentration: 25 ng/mL Alberto Method Performed By: #### L 100.0708 #### [facility] [address] [place] [address] DRUG SCREEN (HUGH) (UNION)o n 05-23-2022 Amphetamines Screen Ql (U) Positive Critically abnormal NEGATIVE [facility] Barbiturates Screen Ql (U) Negative NEGATIVE [facility] Benzodiazepines Ql (U) Negative NEGATIVE [facility] Benzoylecgonine Screen Ql (U) Negative NEGATIVE [facility] Cannabinoids Screen Ql (U) Positive Critically abnormal NEGATIVE [facility] Opiates Screen Ql (U) Negative NEGATIVE [facility] oxyCODONE+oxyMORphon e Screen Ql (U) Negative NEGATIVE [facility] Phencyclidine, Urine Negative NEGATIVE [facility] EKGon 05-23-2022 Atrial Rate 70 BPM [facility] Calculated P [place] [address] [facility] Calculated R [place] [address] [facility] Calculated T [place] [address] [facility] P-R Interval 168 ms [facility] QRS Duration 92 ms [facility] QT Interval 358 ms [facility] QTC Calculation (Bazett) 386 ms [facility] Ventricular Rate 70 BPM [facility] ELECTROCARDIOGRAMon 05-23-20 [place] [address] [facility] INFORMATION MANAGEMENT ELECTROCARDIOGRAM REPORT Patient: JAKI KELSEY Ordering: NICOLASA SILVESTRE M.D. [id number] M Exam Date: 05/23/22 Report #: [id number] Status: REG ER ED Test Reason : Blood Pressure : / mmHG Vent. Rate : 070 BPM Atrial Rate : 070 BPM P-R Int : 168 ms QRS Dur : 092 ms QT Int : 358 ms P-R-T Axes : 067 043 046 degrees QTc Int : 386 ms Normal sinus rhythm with sinus arrhythmia Possible Left atrial enlargement Borderline ECG When compared with ECG of 01-AUG-2020 00:23, PREVIOUS ECG IS PRESENT Confirmed by NICOLASA SILVESTRE MD ([id number]) on 05/23/2022 7:20:10 PM Referred By: NICOLASA SILVESTRE Confirmed By:NICOLASA SILVESTRE MD Signed in MUSE 05/23/22 192 NICOLASA SILVESTRE M.D. cc: << Signature on File>> Reported By: NICOLASA SILVESTRE M.D. Signed By: NICOLASA SILVESTRE M.D. Tests performed at: [place] [address] Normal [facility] Ethanol [Mass/Vol]on 022 Alcohol, Serum < 0.01 0 - 0.01 g/dL [facility] HEPATIC PANELon 05-23-2022 A:G RATIO 1.84 Normal 1.1-2.5 [facility] Comment on above: Performed By: #### L 304.0140, L100.0010, L100.0030 #### [facility] - [facility] [address] [place] [address] 65136 Albumin [Mass/Vol] 4.8 g/dL Normal 3.5-5.2 [facility] Comment on above: Performed By: #### L 304.0140, L100.0010, L100.0030 #### [facility] - [facility] [address] [place] [address] 67814 ALK. PHOS 96 U/L Normal 40-130 [facility] Comment on above: Performed By: #### L 304.0140, L100.0010, L100.0030 #### [facility] [address] [place] [address] 42849 ALT [Catalytic activity/Vol] 10 U/L Normal 5-41 [facility] Comment on above: Performed By: #### L 304.0140, L100.0010, L100.0030 #### [facility] - [facility] [address] [place] [address] 15323 AST [Catalytic activity/Vol] 16 U/L Normal 5-40 [facility] Comment on above: Performed By: #### L 304.0140, L100.0010, L100.0030 #### [facility] - [facility] [address] [place] [address] 89305 Bilirubin [Mass/Vol] 0.2 mg/dL Normal 0.2-1.2 [facility] Comment on above: Performed By: #### L 304.0140, L100.0010, L100.0030 #### [facility] - [facility] [address] [place] [address] 87183 DIRECT BILIRUBI <0.2 Normal 0.0-0.3 [facility] Comment on above: Performed By: #### L 304.0140, L100.0010, L100.0030 #### [facility] - [facility] [address] [place] [address] 28639 Globulin (S) [Mass/Vol] 2.6 g/dL Normal 1.5-4.5 [facility] Comment on above: Performed By: #### L 304.0140, L100.0010, L100.0030 #### ML - LABORATORY [address] [place] [address] 25146 Protein [Mass/Vol] 7.4 g/dL Normal 6.4-8.3 [facility] Comment on above: Performed By: #### L 304.0140, L100.0010, L100.0030 #### ML - LABORATORY [address] [place] [address] 06846 Hepatic function [address] [place] [address] 05-23-2022 Albumin [Mass/Vol] 4.8 g/dL 3.5 - 5.2 g/dL [facility] Albumin/Globulin [Mass ratio] 1.84 {ratio} 1.1 - 2.5 [facility] ALP [Catalytic activity/Vol] 96 U/L 40 - 130 U/L [facility] ALT [Catalytic activity/Vol] 10 U/L 5 - 41 U/L [facility] AST [Catalytic activity/Vol] 16 U/L 5 - 40 U/L [facility] Bilirubin [Mass/Vol] 0.2 mg/dL 0.2 - 1 .2 mg/dL [facility] Direct Bilirubin <0.2 0.0 - 0.3 mg/dL [facility] Globulin (S) [Mass/Vol] 2.6 g/dL 1.5 - 4.5 g/dL [facility] Protein [Mass/Vol] 7.4 g/dL 6.4 - 8.3 g/dL [facility] RAPID COVIDon 05-23-2022 SARS-CoV-2 (COVID-19) RNA LAN+probe Ql (Unsp spec) Negative Normal NEGATIVE [facility] Comment on above: Result Comment: THIS TEST HAS BEEN AUTHORIZED BY FDA UNDER AN EMERGENCY USE AUTHORIZATION (EUA). NEGATIVE: NEGATIVE FOR COVID19 (SARS-CoV-2) BY PCR POSITIVE: POSITIVE FOR COVID19 (SARS-CoV-2) BY PCR PRESUMPTIVE POSITIVE: POSITIVE BY SINGLE KINNEY SARS-CoV TARGET. SARS-CoV-1 CANNOT BE EXCLUDED, BUT IS NOT CURRENTLY CIRCULATING IN [place]. Performed By: #### L 399.994 #### ML - LABORATORY [address] [place] [address] 80959 SALICYLATEon 05-23-2022 SALICYLATE < 0.3 Normal 0-10 [facility] Comment on above: Performed By: #### L 304.0140, L100.0010, L100.0030 #### ML - LABORATORY [address] [place] [address] 81018 Salicylates [Mass/Vol]on Salicylate < 0.3 0 - 10 mg/dL [facility] TSHon 05-23-2022 TSH 2.25 uIU/mL Normal 0.270-4.20 0 [facility] Comment on above: Performed By: #### L 304.0140, L100.0010, L100.0030 #### ML - LABORATORY [address] [place] [address] 71288 TSH Qnon 05-23-2022 TSH 2.25 uIU/mL 0.270 - 4.200 uIU/mL [facility] URINALYSISon 05-23-2022 Bilirubin Ql (U) Negative Normal NEGATIVE [facility] Comment on above: Order Comment: Urine Specimen Source+ CLEAN CATCH Performed By: #### L 304.0140, L100.0010, L100.0030 #### ML - LABORATORY [address] [place] [address] 99616 Color (U) YELLOW Normal YELLOW [facility] Comment on above: Order Comment: Urine Specimen Source+ CLEAN CATCH Performed By: #### L 304.0140, L100.0010, L100.0030 #### ML - LABORATORY [address] [place] [address] 06053 Glucose Ql (U) Negative Normal NEGATIVE [facility] Comment on above: Order Comment: Urine Specimen Source+ CLEAN CATCH Performed By: #### L 304.0140, L100.0010, L100.0030 #### ML - LABORATORY [address] [place] [address] 38864 Hemoglobin Ql (U) Negative Normal NEGATIVE [facility] Comment on above: Order Comment: Urine Specimen Source+ CLEAN CATCH Performed By: #### L 304.0140, L100.0010, L100.0030 #### ML - LABORATORY [address] [place] [address] 30901 Leukocyte esterase Test strip Ql (U) Negative Normal NEGATIVE [facility] Comment on above: Order Comment: Urine Specimen Source+ CLEAN CATCH Performed By: #### L 304.0140, L100.0010, L100.0030 #### ML - LABORATORY [address] [place] [address] 75762 Nitrite Ql (U) Negative Normal NEGATIVE [facility] Comment on above: Order Comment: Urine Specimen Source+ CLEAN CATCH Performed By: #### L 304.0140, L100.0010, L100.0030 #### ML - LABORATORY [address] [place] [address] 56753 pH (U) 6.0 [pH] Normal 5.0-8.0 [facility] Comment on above: Order Comment: Urine Specimen Source+ CLEAN CATCH Performed By: #### L 304.0140, L100.0010, L100.0030 #### ML - LABORATORY [address] [place] [address] 64620 Protein Ql (U) Negative Normal NEGATIVE [facility] Comment on above: Order Comment: Urine Specimen Source+ CLEAN CATCH Performed By: #### L 304.0140, L100.0010, L100.0030 #### ML - LABORATORY [address] [place] [address] 59514 URINE APPEARANC CLEAR Normal CLEAR [facility] Comment on above: Order Comment: Urine Specimen Source+ CLEAN CATCH Performed By: #### L 304.0140, L100.0010, L100.0030 #### ML - LABORATORY [address] [place] [address] 31317 URINE KETONE TRACE Normal NEGATIVE [facility] Comment on above: Order Comment: Urine Specimen Source+ CLEAN CATCH Performed By: #### L 304.0140, L100.0010, L100.0030 #### ML - LABORATORY [address] [place] [address] 66000 URINE SPECIFIC 1.025 Normal 1.001-1.03 5 [facility] Comment on above: Order Comment: Urine Specimen Source+ CLEAN CATCH Performed By: #### L 304.0140, L100.0010, L100.0030 #### ML - LABORATORY [address] [place] [address] 15087 URINE UROBILINO 0.2 EU/DL Normal 0.2-1.0 [facility] Comment on above: Order Comment: Urine Specimen Source+ CLEAN CATCH Performed By: #### L 304.0140, L100.0010, L100.0030 #### ML - LABORATORY [address] [place] [address] 62086 URINALYSIS, DIPSTICK ONLYon 05-23-2022 Appearance (U) CLEAR CLEAR [facility] Bilirubin, Urine Negative NEGATIVE [facility] Blood, Urine Negative NEGATIVE [facility] Color (U) YELLOW YELLOW [facility] Glucose Ql (U) Negative NEGATIVE MG/DL [facility] Ketones Ql (U) TRACE NEGATIVE MG/DL [facility] Leukocytes Negative NEGATIVE [facility] Nitrites Urine Negative NEGATIVE [facility] pH (U) 6.0 [pH] 5.0 - 8.0 [facility] Protein.monoclonal (U) [Mass/Vol] Negative NEGATIVE MG/DL [facility] Specific [place], Ur 1.025 1.001 - 1.035 [facility] Urobilinogen, Urine 0.2 EU/DL 0.2 - 1. 0 EU/DL [facility] SO TRICH URINEon 02-14-2022 SO TRICH URINE REFERENCE RANGE: NEG ATIVE TEST PERFORMED AT [facility], [address] [place] [address], [place] [address] TRICH VAG BY LAN NEGATIVE Normal [facility] Comment on above: Order Comment: Kell s: TSC Performed By: #### M 150.10714 #### [facility] [address] [place] [address] PH# [phone] PCR GC AND CHLAMon PCR CHLAMYDIA Not detected Normal NOT DETECTD [facility] Comment on above: Order Comment: Kell s: TSC Performed By: #### L 770.80897 #### [facility] LABORATORY [address] [place] [address] PCR GONORRHOEAE Detected High NOT DETECTD [facility] Comment on above: Order Comment: Kell s: TSC Performed By: #### L 770.15902 #### [facility] LABORATORY [address] [place] [address] TSCon 02-10-2022 TSC DATE OF SERVICE: 11/2021 HISTORY OF PRESENT ILLNESS: Jaki Laure, 36-year-old male presents today requesting STD testing. He is complaining of a yellowish white mucous discharge with discomfort that started on February 08. Performed a urine test, send out gonorrhea, chlamydia, trichomonas. ALLERGIES: To PENICILLIN. MEDICATIONS: 1. Anxiety medication. 2. Bipolar medication. 3. ADHD medication. Patient put question paul as to what they were called. PAST MEDICAL HISTORY: Mental health issues, anxiety, ADHD. SOCIAL HISTORY: Smokes 1 pack per day. Drinks alcohol occasionally. VITALS: 122/89, pulse 114, respirations 16, temp 97.5, 96% on room air, pounds. REVIEW OF SYSTEMS: Requesting STI/STD check with complaint of yellowish to white [facility] PATIENT NAME: JAKI KELSEY [address] Escobar MEDICAL REC #: [id number] [place] [address] SERAFIN STATCARE REPORT STATCARE PHYSICIAN mucous discharge and abdominal discomfort. No difficulty urinating. No fever. PHYSICAL ASSESSMENT: Normal sinus tachycardia, S1, S2. Negative S3, S4 and murmur. Lung sounds are clear to auscultation upper/lower lobes bilaterally. No rhonchi, wheeze or rales. Abdomen is soft, positive bowel sounds all 4 quadrants. No masses palpable. No organomegaly. No CVA tenderness on percussion. Skin is pink, warm and dry. DIAGNOSIS: Sexually transmitted disease testing with penile discharge. PLAN: Azithromycin p.o. 1 g given here and then due to the PENICILLIN ALLERGY sent in for Ceftin 1 g p.o. one time to the pharmacy. Diagnosis instructions given and follow up as needed. VIVIAN Castaneda/[id number] SSI File#: [id number] [facility] PATIENT NAME: JAKI KELSEY Lilly Escobar MEDICAL REC #: [id number] [place] [address] SERAFIN STATCARE REPORT STATCARE PHYSICIAN END OF DOCUMENT / CHANGE LOG FOLLOWS Last Edited By Elec. Signed By Violeta Tirado FITNESS AND WELLNESS INSTRUCTOR #Violeta Villa FITNESS AND WELLNESS INSTRUCTOR #LESTER on 02/24/2022 15:20 ET on 02/24/2022 15:20 ET Revision Number - 24 Verified/Reviewed by 02/24/22 1520 LSETER [facility] PATIENT NAME: [facility] MEDICAL REC #: [id number] [place] [address] SERAFIN STATCARE REPORT STATCARE PHYSICIAN Normal [facility] SERAFIN STATCARE REPORT [facility] Vital Signs Date Time Vital Sign Value Performing Clinician Conor varner 01-17-2025 12:31-0400 Diastolic Blood Pressure Non-Invasive 63 mm[Hg] ELBA FLOOD DO [facility] 01-17-2025 12:31-0400 Heart rate 59 /min ELBA FLOOD DO [facility] 01-17-2025 12:31-0400 Respiratory rate 18 /min ELBA FLOOD DO [facility] 01-17-2025 12:31-0400 Systolic Blood Pressure Non-Invasive 102 mm[Hg] ELBA FLOOD DO [facility] 01-17-2025 08:57-0400 Body temperature 97.16 [degF] ELBA FLOOD DO [facility] 01-17-2025 08:57-0400 Body weight 77.8 kg ELBA FLOOD DO [facility] 01-17-2025 08:57-0400 Diastolic Blood Pressure Non-Invasive 75 mm[Hg] ELBA FLOOD DO [facility] 01-17-2025 08:57-0400 Heart rate 74 /min ELBA FLOOD DO [facility] 01-17-2025 08:57-0400 Respiratory rate 18 /min ELBA FLOOD DO [facility] 01-17-2025 08:57-0400 Systolic Blood Pressure Non-Invasive 114 mm[Hg] ELBA FLOOD DO [facility] 12-05-2023 08:47-0400 Diastolic Blood Pressure Non-Invasive 65 mm[Hg] NIDAL CHOUJAA DO [facility] 12-05-2023 08:47-0400 Heart rate 62 /min NIDAL CHOUJAA DO [facility] 12-05-2023 08:47-0400 Respiratory rate 18 /min [facility] 12-05-2023 08:47-0400 Systolic Blood Pressure Non-Invasive 102 mm[Hg] NIDAL CHOUJAA DO [facility] 12-04-2023 23:19-0400 Body temperature 97.7 [degF] NIDAL CHOUJAA DO [facility] 12-04-2023 23:19-0400 Diastolic Blood Pressure Non-Invasive 68 mm[Hg] NIDAL CHOUJAA DO [facility] 12-04-2023 23:19-0400 Heart rate 63 /min NIDAL CHOUJAA DO [facility] 12-04-2023 23:19-0400 Respiratory rate 16 /min [facility] 12-04-2023 23:19-0400 Systolic Blood Pressure Non-Invasive 110 mm[Hg] NIDAL CHOUJAA DO [facility] 12-04-2023 11:03-0400 Diastolic Blood Pressure Non-Invasive 71 mm[Hg] NIDAL CHOUJAA DO [facility] 12-04-2023 11:03-0400 Heart rate 79 /min [facility] CHOUJAA DO [facility] 12-04-2023 11:03-0400 Reason For Taking VItal Signs NIDAL CHOUJAA DO [facility] 12-04-2023 11:03-0400 Respiratory rate 18 /min [facility] CHOU[facility] DO [facility] 12-04-2023 11:03-0400 Systolic Blood Pressure Non-Invasive 118 mm[Hg] [facility] 12-04-2023 08:00-0400 Body height 177.8 cm RAJIVAL CHOUJAA DO [facility] 12-04-2023 08:00-0400 Body temperature 98.24 [degF] [facility] 12-04-2023 08:00-0400 Body weight 67 kg [facility] CHOUJAA DO [facility] 11-03-2023 09:36-0500 Body temperature 97.7 [degF] JOI LIN MD [facility] 11-03-2023 09:36-0500 Diastolic Blood Pressure Non-Invasive 74 mm[Hg] JOI LIN MD [facility] 02-24-2024 09:36-0500 Heart rate 74 /min JOI LIN MD [address] 11-03-2023 09:36-0500 Reason For Taking VItal Signs JOI LIN MD [address] [place] [address] 11-03-2023 09:36-0500 Respiratory rate 18 /min JOI LIN MD [address] [place] [address] 11-03-2023 09:36-0500 Systolic Blood Pressure Non-Invasive 117 mm[Hg] JOI LIN MD [address] [place] [address] 11-03-2023 04:26-0500 Body temperature 98.24 [degF] JOI LIN MD [address] [place] [address] 11-03-2023 04:26-0500 Diastolic Blood Pressure Non-Invasive 80 mm[Hg] JOI LIN MD [address] [place] [address] 11-03-2023 04:26-0500 Heart rate 67 /min JOI LIN MD [address] [place] [address] 11-03-2023 04:26-0500 Respiratory rate 18 /min JOI LIN MD [address] [place] [address] 11-03-2023 04:26-0500 Systolic Blood Pressure Non-Invasive 123 mm[Hg] JOI LIN MD [address] [place] [address] 11-02-2023 23:18-0500 Diastolic Blood Pressure Non-Invasive 70 mm[Hg] JOI LIN MD [address] [place] [address] 11-02-2023 23:18-0500 Heart rate 98 /min JOI LIN MD [address] [place] [address] 11-02-2023 23:18-0500 Respiratory rate 16 /min JOI LIN MD [address] [place] [address] 11-02-2023 23:18-0500 Systolic Blood Pressure Non-Invasive 116 mm[Hg] JOI LIN MD [address] [place] [address] 11-02-2023 22:05-0500 Heart rate 97 /min JOI LIN MD [facility] 11-02-2023 21:59-0500 Body temperature 98.06 [degF] JOI LIN MD [facility] 11-02-2023 21:59-0500 Body weight 75.2 kg JOI LIN MD [facility] 11-02-2023 21:59-0500 Heart rate 99 /min JOI LIN MD [facility] 05-11-2023 08:33-0400 Diastolic Blood Pressure Non-Invasive 76 1 GALLO TORRE MD [facility] 05-11-2023 08:33-0400 Heart rate 62 /min GALLO TORRE MD [facility] 05-11-2023 08:33-0400 Respiratory rate 16 /min GALLO TORRE MD [facility] 05-11-2023 08:33-0400 Systolic Blood Pressure Non-Invasive 116 1 GALLO TORRE MD [facility] 05-11-2023 04:33-0400 Body temperature 96.62 [degF] GALLO TORRE MD [facility] 05-11-2023 04:33-0400 Diastolic Blood Pressure Non-Invasive 79 1 GALLO TORRE MD [facility] 05-11-2023 04:33-0400 Heart rate 65 /min GALLO TORRE MD [facility] 05-11-2023 04:33-0400 Respiratory rate 16 /min GALLO TORRE MD [facility] 05-11-2023 04:33-0400 Systolic Blood Pressure Non-Invasive 123 1 GALLO TORRE MD [facility] 02-21-2023 07:25-0400 Body temperature 98.6 [degF] ELBA FLOOD DO [facility] 02-21-2023 07:25-0400 Diastolic Blood Pressure Non-Invasive 62 1 ELBA FLOOD DO [facility] 02-21-2023 07:25-0400 Heart rate 56 /min ELBA FLOOD DO [facility] 02-21-2023 07:25-0400 Respiratory rate 20 /min ELBA FLOOD DO [facility] 02-21-2023 07:25-0400 Systolic Blood Pressure Non-Invasive 100 1 ELBA FLOOD DO [facility] 02-21-2023 00:12-0400 Blood Pressure Cuff Size ELBA FLOOD DO [facility] 02-21-2023 00:12-0400 Blood Pressure Location ELBA FLOOD DO [facility] 02-21-2023 00:12-0400 Blood Pressure Method ELBA FLOOD DO [facility] 02-21-2023 00:12-0400 Body temperature 97.7 [degF] ELBA FLOOD DO [facility] 02-21-2023 00:12-0400 Body weight 70.5 kg ELBA FLOOD DO [facility] 02-21-2023 00:12-0400 Diastolic Blood Pressure Non-Invasive 62 1 ELBA FLOOD DO [facility] 02-21-2023 00:12-0400 Heart rate 70 /min ELBA FLOOD DO [facility] 02-21-2023 00:12-0400 Respiratory rate 22 /min ELBA FLOOD DO [facility] 02-21-2023 00:12-0400 Systolic Blood Pressure Non-Invasive 99 1 ELBA FLOOD DO [facility] 11-17-2022 08:56-0500 Body temperature 98.29 [degF] Lizbeth White RESEARCH PHYSIOLOGIST.FITNESS AND WELLNESS INSTRUCTOR Work Phone: [facility] 11-17-2022 08:56-0500 Body weight 78.93 kg Lizbeth White RESEARCH PHYSIOLOGIST.FITNESS AND WELLNESS INSTRUCTOR Work Phone: [facility] 11-17-2022 08:56-0500 Diastolic blood pressure 79 mm[Hg] Lizbeth White RESEARCH PHYSIOLOGIST.FITNESS AND WELLNESS INSTRUCTOR Work Phone: [facility] 11-17-2022 08:56-0500 Heart rate 77 /min Lizbeth White RESEARCH PHYSIOLOGIST.FITNESS AND WELLNESS INSTRUCTOR Work Phone: [facility] 11-17-2022 08:56-0500 Respiratory rate 16 /min Lizbeth White RESEARCH PHYSIOLOGIST.FITNESS AND WELLNESS INSTRUCTOR Work Phone: [facility] 11-17-2022 08:56-0500 SaO2% (BldA) [Mass fraction] 96 % Lizbeth White RESEARCH PHYSIOLOGIST.FITNESS AND WELLNESS INSTRUCTOR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 by mouth Two (2) times a day Duration: 10 Days Printed Prescription Please take this list to your next doctor s visit. Bring all medications you take, including over the counter medications, herbals and other supplements with you to your doctor s visit. Patients and families are reminded to discard old lists and to update any records with all medication providers or retail pharmacies. Education Materials Cellulitis Cellulitis is an infection of the deep layers of skin. A break in the skin, such as a cut or scratch, can let bacteria under the skin. If the bacteria get to deep layers of the skin, it can be serious. If not treated, cellulitis can get into the bloodstream and lymph nodes. The infection can then spread throughout the body. This causes serious illness. Cellulitis causes the affected skin to become red, swollen, warm, and sore. The reddened areas havea visible border. An open sore may leak fluid (pus). You may have a fever, chills, and pain. Cellulitis is treated with antibiotics taken for 7 to 10 days. An open sore may be cleaned and covered with cool wet gauze. Symptoms should get better 1 to 2 days after treatment is started. Make sure to take all the antibiotics for the full number of days until they are gone. Keep taking the medicine even if your symptoms go away. Home care Follow these tips: Limit the use of the part of your body with cellulitis. If the infection is on your leg, keep your leg raised while sitting. This will help to reduce swelling. Take all of the antibiotic medicine exactly as directed until it is gone. Do not miss any doses, especially during the first 7 days. Don t stop taking the medicine when your symptoms get better. Keep the affected area clean and dry. Wash your hands with soap and warm water before and after touching your skin. Anyone else who touches your skin should also wash his or her hands. Don't share towels. Follow-up care Follow up with your healthcare provider, or as advised. If your infection does not go away on the first antibiotic, your healthcare provider will prescribe a different one. When to seek medical advice Call your healthcare provider right away if any of these occur: Red areas that spread Swelling or pain that gets worse Fluid leaking from the skin (pus) Fever higher of 100.4 F (38.0 C) or higher after 2 days on antibiotics [id number] [employer]. [address] [place] [address], [place] [address]. All rights reserved. This information is not intended as a substitute for professional medical care. Always follow yourhealthcare professional's instructions. Genital Herpes Genital herpes is a common sexually transmitted infection (STI). It is caused by the herpes simplexvirus (HSV). One out of 5 teens and adults carry the herpes virus. During an outbreak, it causes small blisters that break open, leaving small, painful sores in the genital area. Eventually, scabs form and the sores heal. In women, these show up most often on the skin just outside the vaginal opening. They can occur on the buttocks, anus, or cervix. In men, the sores are usually on the tip, sides, or base of the penis. They also occur on the scrotum, buttocks, or thighs. The first outbreak begins within 2 to 3 weeks after exposure to an infected sexual partner. It may last 1 to 3 weeks. It may cause headache, muscle ache, and fevers. The first outbreak is usually theworst. Because the virus remains in the body even after the sores heal, most people will have more outbreaks. The frequency of outbreaks is different for each person. Some people will never have another outbreak. Others will have several episodes a year. Later outbreaks are usually shorter, milder,and less painful. For many, the number of outbreaks tends to decrease over time. Various factors may trigger an outbreak. These include: Emotional stress Menstruation Presence of another illness (cold, flu, or fever from any cause) Overexertion and fatigue Weak immune system Home care It is very important that you do not have sexual relations until all the herpes sores have healed completely. Wash the affected area gently with mild soap and water. Wash your hands after touching the affectedarea. You may use rrek-trv-bmfcbyn pain medicine unless another pain medicine was prescribed. If you havechronic liver or kidney disease or have ever had a stomach ulcer or gastrointestinal bleeding, talkwith your healthcare provider before using these medicines. Also talk to your provider if you are taking medicine to prevent blood clots. Aspirin should never be given to anyone younger than 18 yearsof age who is ill with a viral infection or fever. It may cause severe liver or brain damage. Your healthcare provider may prescribe antiviral medicine during the first outbreak. This will helpthe sores heal faster. Antiviral medicine may also be prescribed so that you have it ready to take at the first sign of another outbreak. This will help the symptoms go away sooner. For people with frequent outbreaks, daily preventive therapy may be prescribed. This will help reduce the frequency of attacks. Daily preventive therapy may also reduce risk of spread of herpes to your sexual partner.Discuss the risks and benefits of daily therapy with your healthcare provider. If you are a woman who is now or may become in the future, let your healthcare provider know that you have had herpes. This may affect the way your baby is delivered. Preventing spread to others The virus is spread by sexual contact with someone who has the herpes virus. The risk of spread is highest when the sores are present. However, there is a chance of spreading the virus even when sores are not visible. Inform future sexual partners that you have herpes and that they may become infected. To reduce the risk of passing the virus to a partner who has never had herpes, avoid sexual relations at the first sign of an outbreak and until the sores are fully healed. Latex barriers, such as condoms, reduce the risk of spread between outbreaks if the infected site is covered, but they do not guarantee protection. Follow-up care Follow up with your healthcare provider, or as advised. People who have just learned that they have herpes may feel upset. Getting the facts about herpes can help you feel more in control. Follow up with your healthcare provider or the public health department for complete STI screening, including HIV testing. When to seek medical advice Call your healthcare provider right away if any of these occur: Inability to urinate due to pain Swelling or increasing redness in the genital area Discharge from the vagina or penis Increasing back or abdominal pain Rash or joint pain Call 911 Call 911 or get immediate medical care if any of these occur: Unusual drowsiness, weakness, or confusion Worsening headache or stiff neck [id number] [employer]. [address] [place] [id number]. All rights reserved. This information is not intended as a substitute for professional medical care. Always follow yourhealthcare professional's instructions. Additional Information VACCINATE! IT SAVES LIVES! Members of the community who have not yet received the COVID-19 vaccine and would like to receive it can visit one of [facility] vaccine clinics. There are many vaccine clinic locations within the [facility]. For locations and available times, please visit www.gettheshot.coronavirus.[place].gov/. It is important to note that some COVID mobile vaccine clinics are held outdoors and may be canceled in rainy or stormy conditions. To learn more about pediatric vaccinations (ages 5-11), we invite you to visit the [facility] webpage. [email or web address]/[email or web address] learn more about the COVID-19 vaccine, we invite you to visit the CDC website for a list of frequently asked questions. https://www.cdc.gov/coronavirus/2019-ncov/vaccines/faq.html [facility] Patient Portal Access Instructions: Stay connected with your healthcare team and access your personal medical information anytime with the [facility] Patient Portal. If you would like a full copy of your medical records please contact the [facility] Medical Records Department Sunday through Sunday between 8a.m. and 4:30p.m. Please follow the directions below to access the portal: 1.Access the email account you provided upon registration to the [facility].2.Look for an invitation email from [facility].3.Open the email and access the invitation link: Accept Invitation to [facility]4.Fill in the required nunn to create your account. Sign into [email or web address].[email or web address] with your username and password that you created in the above steps to stay up to date. You can then view a summary of results, a summary of your visits, and the ability to download your summaries to your computer or send the information securely to a physician. Remember that your healthcare information is confidential, so carefully consider who you will allow to register on the [facility] Patient Portal for access to your information. You can also access the [employer] Patient Portal on the [employer]. Simply click on Health Records under [employer] and then click on the [employer] logo. HOW TO SAFELY DISPOSE OF PRESCRIPTION MEDICATIONS Please use one of the following methods to safely dispose of your unused medications. 1.Use a drug disposal kit: the drug disposal pouch allows you to safely discard your old and unuseddrugs. Ask your nurse to give you one when you are discharged.2.Visit a local take-back location: Many local pharmacies and police departments have programs that collect old and unwanted prescriptiondrugs. Call your local pharmacy or go to http://Mi-Pay.ly/3R5Nd0b to find one close to you.3.Make use of household items: Use cat litter or old coffee grounds to dispose medications if other options arenot available. Mix your drugs with these household products, seal them in an airtight container andthrow it into the garbage. Call [facility]: [phone] to be sure your drugs can be disposed of in this way. Some medicines may require a different approach.4.Never flush your medications down the toilet. IF YOU HAVE BEEN PRESCRIBED AN OPIOIDS FOR PAIN If you have been prescribed an opioid (such as hydrocodone, oxycodone or morphine), it is critical to understand the possible side effects and risks of opioid pain medications. Even when taken as directed, opioids can have several side effects including: Tolerance, meaning you might need to take more of a medication for the same pain relief. Nausea, vomiting and/or constipation. Sleepiness, dizziness, dry mouth, confusion, depression or itching. Physical dependence, meaning you have withdrawal symptoms when a medication is stopped ? this can develop within a few days. KNOW YOUR RESPONSIBILITIES It is important to know exactly how much and how often to take the opioid pain medications you are prescribed. Never take opioids in higher amounts or more often than prescribed. Do not combine opioids with alcohol or other drugs that cause drowsiness, such as benzodiazepines, also known as benzos,including diazepam and alprazolam, muscle relaxants or sleep aids. Never sell or share prescriptionopioids. This is illegal. Store opioids in a secure place and out of reach of others (including children, family, friends and visitors). The last page(s) of this document has been signed and retained as a CHART COPY Signatures Patient Education Materials Cellulitis Skin Infection Herpes Genitalis, Hsv: Type Ii Medication Leaflets My discharge plan and instructions have been reviewed and explained to me and I,JAKI KELSEY understand my current condition and have read and understand these discharge instructions. I have received a written copy of the plan/instructions. If I have questions, I am aware that I should contact my doctor. Patient/Internal Control Analyst Signature: Date/Time: Relationship to Patient: Witness Name/Signature: Date/Time: [id number] Miscellaneous Notes* Telephone Encounter - Neeru Olivia APRN.FITNESS AND WELLNESS INSTRUCTOR - 11/18/2022 10:13 PM EST Please notify the patient culture positive for gonorrhea, take medication as prescribed at time of visit. Negative for chlamydia documented in this encounterMercy Health03-10-2023 NoteHNO ID: [id number] Author: Mickey Gambino LPN Service: ? Author Type: LICENSED NURSE Type: Progress Notes Filed: 11/17/2022 10:12 AM Note Text: Patient monitored for 20 minutes, no adverse reaction to antibiotic.[facility]23 NoteHNO ID: [id number] Author: Lizbeth Krishnamurthy APRN.VIVIAN Service: ? Author Type: Nurse Practitioner Type: Progress Notes Filed: 11/17/2022 9:32 AM Note Text: November 17, 2022 HPI: Jaki Kelsey is a 37 year old male who presents today for Std Exposure (Penis discharge, one week) Patient presents urgent care setting for stated gonorrhea. He states his partner was positive yesterday no chlamydia infection was noted. He came here today for treatment for gonorrhea. He has had some yellow discharge for about a week from the meatus. He denies any testicular pain. He does admit to some minor dysuria. He does also admit that he has a firm area to the underside of the penis close to the glans. He states it is a little tender. He has had no fever or chills. He has had no nausea or vomiting. He has had no pain in the testicle. No painful ejaculation. No past medical history on file. No past surgical history on file. No family history on file. Social History Tobacco Use Smoking status: Every Day Packs/day: 0.50 Types: Cigarettes Smokeless tobacco: Never Substance Use Topics Alcohol use: Not Currently ALLERGIES Allergen Reactions Depakote [Divalproe* Unknown Penicillins Unknown Immunization History Administered Date(s) Administered COVID-19 original vaccine, age 12+ yr, monovalent ([employer] - PURPLE TOP) 12/30/2020 01/19/2021 Current Medications: atomoxetine (STRATTERA) 40 mg capsuleTake 40 mg by mouth twice daily.Disp: Rfl: busPIRone (BUSPAR) 5 mg tabletTake 5 mg by mouth twice daily.Disp: Rfl: lamoTRIgine (LAMICTAL) 25 mg tabletTake 75 mg by mouth daily at bedtime.Disp: Rfl: doxycycline hyclate (VIBRAMYCIN) 100 mg capsuleTake 1 capsule by mouth twice daily for 14 days.Disp: 28 capsuleRfl: 0 ARIPiprazole (ABILIFY) 10 mg tabletTake 1 tablet by mouth once daily.Disp: 30 tabletRfl: 0 venlafaxine ER (EFFEXOR XR) 150 mg 24 hr capsuleTake 1 capsule by mouth once daily.Disp: 30 capsuleRfl: 0 Review of Systems Constitutional: Negative for chills, diaphoresis, fever and malaise/fatigue. HENT: Negative for ear pain, sinus pain and sore throat. Eyes: Negative for blurred vision, double vision, pain, discharge and redness. Respiratory: Negative for cough, hemoptysis, shortness of breath, wheezing and stridor. Cardiovascular: Negative for chest pain, orthopnea and leg swelling. Gastrointestinal: Negative for abdominal pain, diarrhea, nausea and vomiting. Genitourinary: Positive for dysuria. Negative for frequency and urgency. STI exposure Musculoskeletal: Negative for back pain, joint pain, myalgias and neck pain. Skin: Negative for rash. Neurological: Negative for dizziness, weakness and headaches. Endo/Heme/Allergies: Negative for environmental allergies. Does not bruise/bleed easily. Psychiatric/Behavioral: Negative. Objective BP 123/79 Pulse 77 Temp 98.3 Resp 16 Wt 174 lb (78.9kg) SpO2 96% Physical Exam Constitutional: General: He is not in acute distress. Appearance: Normal appearance. He is normal weight. He is not ill-appearing, toxic-appearing or diaphoretic. HENT: Head: Normocephalic and atraumatic. Right Ear: Tympanic membrane normal. Left Ear: Tympanic membrane normal. Nose: Nose normal. Mouth/Throat: Mouth: Mucous membranes are moist. Pharynx: No posterior oropharyngeal erythema. Eyes: General: No scleral icterus. Extraocular Movements: Extraocular movements intact. Conjunctiva/sclera: Conjunctivae normal. Pupils: Pupils are equal, round, and reactive to light. Cardiovascular: Rate and Rhythm: Normal rate and regular rhythm. Pulses: Normal pulses. Heart sounds: No murmur heard. Pulmonary: Effort: No respiratory distress. Breath sounds: Normal breath sounds. No stridor. No wheezing. Abdominal: General: Bowel sounds are normal. Palpations: Abdomen is soft. Tenderness: There is no abdominal tenderness. Genitourinary: Comments: 1cm firm tender area to the underside of penis near the glans. No open area noted. There are healed lesions on the penis that he states are from bite injury. No vesicles are noted. Musculoskeletal: General: Normal range of motion. Cervical back: Neck supple. No rigidity or tenderness. Right lower leg: No edema. Left lower leg: No edema. Skin: General: Skin is warm and dry. Capillary Refill: Capillary refill takes less than 2 seconds. Neurological: Mental Status: He is alert and oriented to person, place, and time. Sensory: No sensory deficit. Motor: No weakness. Psychiatric: Mood and Affect: Mood normal. Behavior: Behavior normal. MDM: The patient has known exposure to gonorrhea. He states his partner tested positive yesterday. No chlamydia infection is noted. He has had yellow drainage from the penis. He does have a firm area with tenderness just under the glans on the underside of the penis. No open areas are noted. There are some h (more content not included)...[facility] 11-17-2022 History of Present illness Narrative* Mickey Gambino LPN - 11/17/2022 10:00 AM EST Patient monitored for 20 minutes, no adverse reaction to antibiotic.Mickey Gambino LPN * Lizbeth Krishnamurthy APRN.FITNESS AND WELLNESS INSTRUCTOR - 11/17/2022 9:12 AM EST November 17, 2022 HPI: Jaki Kelsey is a 37 year old male who presents today for Std Exposure (Penis discharge, one week) Patient presents urgent care setting for stated gonorrhea. He states his partner was positive yesterday no chlamydia infection was noted. He came here today for treatment for gonorrhea. He has had some yellow discharge for about a week from the meatus. He denies any testicular pain. He does admit to some minor dysuria. He does also admit that he has a firm area to the underside of the penis close to the glans. He states it is a little tender. He has had no fever or chills. He has had no nausea or vomiting. He has had no pain in the testicle. No painful ejaculation. No past medical history on file. No past surgical history on file. No family history on file. Social History Tobacco Use Smoking status: Every Day Packs/day: 0.50 Types: Cigarettes Smokeless tobacco: Never Substance Use Topics Alcohol use: Not Currently ALLERGIES Allergen Reactions Depakote [Divalproe* Unknown Penicillins Unknown Immunization History Administered Date(s) Administered COVID-19 original vaccine, age 12+ yr, monovalent ([employer] - PURPLE TOP) 12/30/2020 01/19/2021 Current Medications: atomoxetine (STRATTERA) 40 mg capsule^Take 40 mg by mouth twice daily.^Disp: ^Rfl: busPIRone (BUSPAR) 5 mg tablet^Take 5 mg by mouth twice daily.^Disp: ^Rfl: lamoTRIgine (LAMICTAL) 25 mg tablet^Take 75 mg by mouth daily at bedtime.^Disp: ^Rfl: doxycycline hyclate (VIBRAMYCIN) 100 mg capsule^Take 1 capsule by mouth twice daily for 14 days.^Disp: 28 capsule^Rfl: 0 ARIPiprazole (ABILIFY) 10 mg tablet^Take 1 tablet by mouth once daily.^Disp: 30 tablet^Rfl: 0 venlafaxine ER (EFFEXOR XR) 150 mg 24 hr capsule^Take 1 capsule by mouth once daily.^Disp: 30 capsule^Rfl: 0 Review of Systems Constitutional: Negative for chills, diaphoresis, fever and malaise/fatigue. HENT: Negative for ear pain, sinus pain and sore throat. Eyes: Negative for blurred vision, double vision, pain, discharge and redness. Respiratory: Negative for cough, hemoptysis, shortness of breath, wheezing and stridor. Cardiovascular: Negative for chest pain, orthopnea and leg swelling. Gastrointestinal: Negative for abdominal pain, diarrhea, nausea and vomiting. Genitourinary: Positive for dysuria. Negative for frequency and urgency. STI exposure Musculoskeletal: Negative for back pain, joint pain, myalgias and neck pain. Skin: Negative for rash. Neurological: Negative for dizziness, weakness and headaches. Endo/Heme/Allergies: Negative for environmental allergies. Does not bruise/bleed easily. Psychiatric/Behavioral: Negative. Objective BP 123/79 Pulse 77 Temp 98.3 Resp 16 Wt 174 lb (78.9kg) SpO2 96% Physical Exam Constitutional: General: He is not in acute distress. Appearance: Normal appearance. He is normal weight. He is not ill-appearing, toxic-appearing or diaphoretic. HENT: Head: Normocephalic and atraumatic. Right Ear: Tympanic membrane normal. Left Ear: Tympanic membrane normal. Nose: Nose normal. Mouth/Throat: Mouth: Mucous membranes are moist. Pharynx: No posterior oropharyngeal erythema. Eyes: General: No scleral icterus. Extraocular Movements: Extraocular movements intact. Conjunctiva/sclera: Conjunctivae normal. Pupils: Pupils are equal, round, and reactive to light. Cardiovascular: Rate and Rhythm: Normal rate and regular rhythm. Pulses: Normal pulses. Heart sounds: No murmur heard. Pulmonary: Effort: No respiratory distress. Breath sounds: Normal breath sounds. No stridor. No wheezing. Abdominal: General: Bowel sounds are normal. Palpations: Abdomen is soft. Tenderness: There is no abdominal tenderness. Genitourinary: Comments: 1cm firm tender area to the underside of penis near the glans. No open area noted. There are healed lesions on the penis that he states are from bite injury. No vesicles are noted. Musculoskeletal: General: Normal range of motion. Cervical back: Neck supple. No rigidity or tenderness. Right lower leg: No edema. Left lower leg: No edema. Skin: General: Skin is warm and dry. Capillary Refill: Capillary refill takes less than 2 seconds. Neurological: Mental Status: He is alert and oriented to person, place, and time. Sensory: No sensory deficit. Motor: No weakness. Psychiatric: Mood and Affect: Mood normal. Behavior: Behavior normal. MDM: The patient has known exposure to gonorrhea. He states his partner tested positive yesterday. No chlamydia infection is noted. He has had yellow drainage from the penis. He does have a firm area withtenderness just under the glans on the underside of the penis. No open areas are noted. There are some healed lesions on the penis that he states are from a bite injury. I will be treating for gonorrhea and chlamydia today. He will receive 500 mg of IM Rocephin and doxycycline for 7 days. The lesion on the underside of the penis that is firm I question of syphilis. Syphilis testing is not completed here he was recommended to follow-up with the health department fortesting. I am going to extend the Doxy for a total of 14 days to treat for potential syphilis. He wa s wrongly encouraged to have testing done and follow-up therapy to ensure clearance. ASSESSMENT/PLAN: 1. STI (sexually transmitted infection) - ICD9: 099.9, ICD10: A64 - DOXYCYCLINE HYCLATE 100 MG CAPSULE - CEFTRIAXONE 500 MG SOLUTION FOR INJECTION - GC/CHLAMYDIA AMPLIF, URINE Please follow-up with health department for syphilis testing as discussed. Doxycycline 2 times daily for 14 days. Abstain from sexual intercourse until fully treated and results have been obtained. In the future refer to safe sex measures to prevent further infection. Lizbeth Krishnamurthy APRN.CNP documented in this encounterMercy Health03-10-2023 Instructions* Patient Instructions* Lizbeth Krishnamurthy APRN.CNP - 11/17/2022 9:12 AM EST Please follow-up with health department for syphilis testing as discussed. Doxycycline 2 times daily for 14 days. Abstain from sexual intercourse until fully treated and results have been obtained. In the future refer to safe sex measures to prevent further infection. EXPRESS CARE PATIENT INFO CLAMYDIA AND GONORRHEA What are chlamydia and gonorrhea? - Chlamydia and gonorrhea are two different infections that you can catch during sex. They cause similar symptoms. These infections can affect the: Sex organs Urethra (the tube that carries urine out of the body) Throat Rectum or anus (especially in men who have sex with men) Infections that you can catch during sex are called sexually transmitted infections. What are the symptoms of chlamydia and gonorrhea? - Often these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
[2025-08-23 07:52] LABS: Hematocrit 40.5 % (40-54); Hemoglobin 13.0 g/dL (13.0-16.5); Immature Granulocytes Count 0.010 X10^3/uL (0.0-0.0); Mean Corp Hgb Conc 32.1 g/dL (32-36); Mean Corpuscular Volume 94.2 fL (80-94); Mean Platelet Vol. 9.5 fl (6.2-12.0); NRBC Flagged by Analyzer 0 % (0-5); Platelet Count 273 K/mm3 (150-450); RBC Distribution Width CV 13.5 % (11.6-14.6); RBC Distribution Width SD 46.6 fl (35.1-43.9); Red Blood Count 4.30 M/mm3 (4.6-6.2); White Blood Count 5.1 K/mm3 (4.4-11.0)
[2025-08-23 08:04] LABS: Alcohol, Blood (Medical)-Serum < 10.1 mg/dL (<=10.0); Anion Gap 9 (5-15); BUN 13 mg/dL (4-19); BUN/Creat Ratio 14.4 RATIO (10-20); Calcium,Total 9.1 mg/dL (7.6-11.0); Carbon Dioxide 27.3 mmol/L (21.0-32.0); Chloride 101 mmol/L (98-108); Estimated Creatinine Clearance 114.21 ml/min (50-250); Glucose 110 mg/dL (70-99); Potassium 4.0 mmol/L (3.3-5.1)
[2025-08-23 13:03] LABS: Barbiturate Urine NEGATIVE (< 200 ng/mL); Benzodiazepine Urine NEGATIVE (< 200 ng/mL); PCP Urine NEGATIVE (< 25 ng/mL); THC Urine PRESUMPTIVE POSITIVE (< 50 ng/mL)
--- NOTE | 2025-08-23 14:15 | CM.ED ---
Social Work Date of referral: 1213@5 Reason for referral: Resources needed Referred by: Social Work Identification. Balance Staff Staker called Crisis and spoke with Po to give him a heads up that report for patient is being faxed by ED charge nurse and that patient has been medically cleared and ready for evaluation. (14:04) Patient was sleeping at the time of attempted contact however director social placed resources with patient's belongings for shelters, food, clothing, PCP, dental, housing, case loader operator, (to help secure services and to also help patient to be able to apply for Medicaid, transportation and mental health services. (14:15) Sarah Kelley, GUIDE VISITOR, STAFF CYTOTECHNOLOGIST
[2025-08-23 15:46] VITALS: BP 115/65; PULSE 60; RESP 14; O2SAT 99
[2025-08-23 23:00] VITALS: BP 119/75; PULSE 53; RESP 16; TEMP 36.6; O2SAT 99
[2025-08-24 07:00] VITALS: BP 113/71; PULSE 51; RESP 16; TEMP 36.8; O2SAT 100
--- NOTE | 2025-08-24 10:16 | PCA ---
CALLED [facility] @ 1016 THEY SAID WORKING ON HIS PAPER WORK. NOT ACCEPTED YET. NO MALE BEDS AND THREE OR FOUR MALES AHEAD OF HIM WHEN BEDS DO BECOME AVAILABLE.
--- NOTE | 2025-08-24 11:49 | CM.ED ---
Addendum entered by Dania Cho 08/24/25 18:30: Social Work SW was notified by Adama with [facility] [address] [address] that patient that patient was reassessed and it was determined that patient still requires inpatient psychiatric hospitalization. Plan: Patient pending bed at [place] or Medicaid approval. TRINA Raza, NEENA Original Note: Social Work SW met with patient, introduced self and explained role with [facility]. Patient was notified that there was no bed availability today, that patient most likely will be at hospital at least overnight. Patient agreeable to same. Senait from [facility] completed Medicaid application, will let SW office know if or when patient is eligible for Medicaid. Patient notified that SW would be available today should he need anything or have any questions. No further needs at this time. TRINA Raza, PROFESSOR OF MATHEMATICS
[2025-08-24 15:00] VITALS: BP 118/72; PULSE 56; RESP 16; TEMP 36.4; O2SAT 97
[2025-08-24 23:00] VITALS: BP 113/67; PULSE 73; RESP 16; O2SAT 98
[2025-08-25 07:00] VITALS: BP 115/78; PULSE 78; RESP 18; TEMP 36.9; O2SAT 98
--- NOTE | 2025-08-25 09:25 | PCA ---
MIGUEL CALLED AT 825 AND SAID RYAN SAID HE IS STILL UNDER REVIEW. THEY ARE WAY BACKED UP AND AND REALLY SHORT STAFFED. IT DEF. WONT BE TODAY BEFORE HE HAS A BED.
--- NOTE | 2025-08-25 11:20 | PCA ---
elijah CALLED @ 1120 AND SAID HE WAS APPROVED FOR MEDICAID, THEY WILL HAVE HIS NUMBERS IN A COUPLE HRS SO THEY CAN WORK ON PLACEMENT SOMEWHERE ELSE
--- NOTE | 2025-08-25 11:21 | CM.ED ---
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 TRINA Maurer, SHEETER OPERATOR Original Note: Social work 1115: called [employer] (ext [phone]) with laurie to inquire about patient's Medicaid application. Senait stated the Medicaid application had been approved, but patient was not shown as eligible yet. Senait hoped patient would be eligible within 2 hours. SW called [facility] (ph: [phone]) and spoke with Vishnu, stating the above. Vishnu requested paperwork showing patient's approval as this has worked with [place] in the past. SW called [employer] asking for this document and left a VM. 1200: [employer] emailed documentation showing patient's Medicaid approval around 1145. Eligibility paperwork was sent at noon and both papers were faxed to [facility] (f: ). Robson from [facility] called this SW stating request for documents as well; Vishnu from [facility] stated ability to send paperwork to [facility]. Robson from [facility] called back at 1215 stating patient's Medicaid plan was out of network with [place]. This SW called Vishnu back and stated this; Vishnu stated intent to call other locations and continue making referrals. Plan: inpatient placement, pending acceptance; [facility] working on case with support from this SW as needed. Patient now open to other placement options due to having eligible Medicaid. TRINA Maurer, SHEETER OPERATOR
[2025-08-25 15:00] VITALS: BP 124/78; PULSE 78; RESP 18; O2SAT 99
--- NOTE | 2025-08-25 16:26 | CM.ED ---
Addendum entered by Abena Levy 08/25/25 16:29: Social work 1310: Sreedhar Santos reportedly called with note of declining patient due to patient having straight Medicaid coverage. SW called Crisis and updated Vishnu. Below note was from [phone]. TRINA Maurer, LAB SUPPORT TECH Original Note: Social work Per request from ED events assistant, DANDRE faxed negative Covid results to [facility] for placement needs (f: [phone]). Patient accepted at [facility] and ETA for transport is currently [phone]. No further needs identified for SW at this time. TRINA Maurer, LAB SUPPORT TECH
[2025-08-25 18:52] VITALS: BP 118/76; PULSE 64; RESP 18; TEMP 36.6; O2SAT 99
== END 2025-08-25 18:53 ==
PROVIDERS: Emergency Provider Emergency Medicine; Visit Provider Emergency Medicine
DX: R45.851 Suicidal ideations (principal); M79.671 Pain in right foot; M79.672 Pain in left foot; F17.210 Nicotine dependence, cigarettes, uncomplicated; Z59.02 Unsheltered homelessness
CPT/HCPCS: 80048; 80307; 82077; 85025; 87635; 99285